=== PATIENT | male | born 1950 ===

== ENCOUNTER 2016-10-27 10:00 | Inpatient (IN) | payer OTHER, MEDICARE ==
[2016-10-27 10:01] VITALS: BMI 36.9
--- NOTE | 2016-10-27 11:22 | ED PDOC ---
Lower Extremity Pain/Injury Time Seen by Provider: 10/27/16 10:45 Chief Complaint (Nursing): Lower Extremity Problem/Injury Chief Complaint (Provider): Lower Extremity problem/Injury History Per: Patient History/Exam Limitations: no limitations Onset/Duration Of Symptoms: Hrs (prior to arrival ) Current Symptoms Are (Timing): Still Present Additional Complaint(s): Breezy Katz is a 66 year old male with a past medical history of diabetes and hypertension presenting to the ED for an evaluation of charcot foot to his left foot. The patient had two screw placements within his left foot and with one removed recently by Dr. Liu. This morning the patient noticed drainage occurring from his left foot as he was walking out of the bathroom which prompted his ED visit today. Of note, the patient experienced a stroke last December, for which he underwent therapy. Recently he has been practicing self-therapy at home. PMD: Rosario Past Medical History Reviewed: Historical Data, Nursing Documentation, Vital Signs Vital Signs: Last Vital Signs Temp 97.4 F L 10/27/16 10:15 Pulse 77 10/27/16 10:15 Resp 20 10/27/16 10:15 BP 124/60 10/27/16 10:15 Pulse Ox 98 10/27/16 10:29 - Medical History PMH: Anxiety, CVA (2010), Depression, Diabetes (type II), Gastritis, GERD, HTN, Hypercholesterolemia, TIA Denies: Arthritis, CHF, COPD, HIV, Hypothyroidism, Chronic Kidney Disease, Rheumatoid Arthritis - Surgical History Surgical History: Appendectomy (05/30/10), Coronary Stent (PERIPHERAL ANGIOGRAM STENT IMPLANTED 08/12/2012) - Family History Family History: States: Unknown Family Hx - Social History Current smoker - smoking cessation education provided: No Ex-Smoker (has not smoked in the last 12 months): Yes Alcohol: None Drugs: Denies - Home Medications Home Medications: Ambulatory Orders Medication Instructions Recorded Aspirin [Ecotrin] 81 mg PO DAILY 10/27/16 Atorvastatin [Lipitor] 80 mg PO HS 10/27/16 Brimonidine Tartrate/Timolol 1 drop EACHEYE BID 10/27/16 [Combigan 0.2%-0.5% Eye Drops] Clopidogrel [Plavix] 75 mg PO DAILY 10/27/16 Cu/Se/Vit A/Vit C/Vit E/Zinc 1 tab PO DAILY 10/27/16 [Ocuvite] Gabapentin [Neurontin] 300 mg PO TID PRN 10/27/16 Insulin Detemir [Levemir] 80 unit SC HS 10/27/16 Insulin Lispro [humALOG] 4 - 10 unit SC TID 10/27/16 Losartan [Cozaar] 50 mg PO DAILY 10/27/16 Meloxicam [Mobic] 15 mg PO DAILY PRN 10/27/16 MetFORMIN [glucoPHAGE] 1,000 mg PO BID 10/27/16 Multivitamin [Multi-Vitamin Daily] 1 tab PO DAILY 10/27/16 Onyx-3 Fatty Acids/Fish Oil [Fish 1 cap PO DAILY 10/27/16 Oil 1,000 mg Capsule] Omeprazole [Omeprazole] 40 mg PO DAILY 10/27/16 Travoprost [Travatan Z] 1 drop EACHEYE HS 10/27/16 hydroCHLOROthiazide [Microzide] 12.5 mg PO DAILY 10/27/16 - Allergies Allergies/Adverse Reactions: Allergies Allergy/AdvReac Type Severity Reaction Status Date / Time oxycodone HCl [From Percocet] Allergy Intermediate ITCHING Verified 01/21/16 20: 08 cat scan oral contrast Allergy Intermediate RASH Uncoded 01/21/16 20:08 Review of Systems ROS Statement: Except As Marked, All Systems Reviewed And Found Negative Musculoskeletal: Positive for: Foot Pain (left foot pain and drainage ) Physical Exam - Reviewed Nursing Documentation Reviewed: Yes Vital Signs Reviewed: Yes - Physical Exam Appears: Positive for: Non-toxic, No Acute Distress Head Exam: Positive for: ATRAUMATIC, NORMOCEPHALIC Cardiovascular/Chest: Positive for: Regular Rate, Rhythm. Negative for: Murmur Respiratory: Positive for: Normal Breath Sounds. Negative for: Respiratory Distress Gastrointestinal/Abdominal: Positive for: Normal Exam, Soft. Negative for: Tenderness Extremity: Positive for: Pedal Edema (pitting edema to left lower extremity), Swelling (chronic swelling to left lower extremity ), Other (interspace between foot and toe is injured but is able to walk ) Neurologic/Psych: Positive for: Alert, Oriented (x3) - Laboratory Results Result Diagrams: 10/27/16 12:00 10/27/16 12:00 - ECG O2 Sat by Pulse Oximetry: 98 (RA) Pulse Ox Interpretation: Normal Medical Decision Making Medical Decision Making: Time: 10:45 Impression: Lower Extremity Problem/Injury Plan: * VBG * BMP * CBC (With differential) * Erythrocyte Sedimentation Rate * Blood Culture * Would Culture * [RAD] Ankle AP LAT 2 Views LT * [RAD] Foot AP LAT LT * Reevaluation Scribe Attestation: Documented by Chanell Bustillo, acting as a scribe for Olga Vaughan MD. Provider Scribe Attestation: All medical record entries made by the Scribe were at my direction and personally dictated by me. I have reviewed the chart and agree that the record accurately reflects my personal performance of the history, physical exam, medical decision making, and the department course for this patient. I have also personally directed, reviewed, and agree with the discharge instructions and disposition. case d/w Podiatry. Will admit for IV antibiotics Disposition - Clinical Impression Clinical Impression: Cellulitis, Diabetic foot ulcer - Patient ED Disposition Is Patient to be Admitted: Yes - Disposition Disposition: Transfer of Care Disposition Time: 13:10 Condition: GUARDED Forms: [employer] (Amharic) - Pt Status Changed To: Hospital Disposition Of: Inpatient - Admit Certification Admit to Inpatient:: After my assessment, the patient will require hospitalization for at least two midnights. This is because of the severity of symptoms shown, intensity of services needed, and/or the medical risk in this patient being treated as an outpatient.
[2016-10-27 12:06] LABS: VENOUS BLOOD GAS BASE EXCESS 3.6 mmol/L (0.0-2.0); VENOUS BLOOD GAS PCO2 52 mmHg (40-60); VENOUS BLOOD PH 7.37 (7.32-7.43)
[2016-10-27 12:18] LABS: BASO # 0.1 K/uL (0.0-0.2); BASO % 0.7 % (0.0-2.0); EOS # 0.2 K/uL (0.0-0.7); EOS % 1.8 % (0.0-4.0); HEMATOCRIT 39.3 % (35.0-51.0); LYMPH # 1.7 K/uL (1.0-4.3); LYMPH % 12.6 % (20.0-40.0); MEAN CELL VOLUME 85.7 fl (80.0-94.0); MEAN CORPUSCULAR HEMOGLOBIN 28.2 pg (27.0-31.0); MEAN CORPUSCULAR HGB CONC 32.9 g/dL (33.0-37.0); MEAN PLATELET VOLUME 9.1 fl (7.2-11.7); MONO # 0.8 K/uL (0.0-0.8); MONO % 5.8 % (0.0-10.0); NEUT # 10.5 K/uL (1.8-7.0); NEUT % 79.1 % (50.0-75.0); RED CELL DISTRIBUTION WIDTH 14.3 % (11.5-14.5)
[2016-10-27 12:23] LABS: BLOOD UREA NITROGEN 18 mg/dl (9-20); CALCIUM 9.1 mg/dL (8.4-10.2); CARBON DIOXIDE 27 mmol/L (22-30); CHLORIDE 98 mmol/L (98-107); GFR AFRICAN-AMERICAN > 60; GLUCOSE,RANDOM 194 mg/dL (75-110); POTASSIUM 4.1 MMOL/L (3.6-5.0); SODIUM 137 mmol/l (132-148)
[2016-10-27 12:42] LABS: WHITE BLOOD COUNT 13.3 K/uL (4.8-10.8)
--- NOTE | 2016-10-27 12:42 | CP.PCM.CON ---
History of Present Illness - History of Present Illness History of Present Illness: 66 y/o male with PMH of DM and HTN seen in ED by podiatry for left foot 4th interspace ulcer and Charcot foot deformity. Pt is a known patient of Dr. Vega and has previously undergone several surgeries with him on both feet. Pt says his sugars normally run in the 200s but fluctuate depending on his diet. Pt states he noticed blood coming from the foot two days ago and this morning his noticed a wound there. Pt denies any F/C/N/V/SOB. Pt denies noticing any yellow drainage from the wound. Pt admits to a history of growing MRSA. Review of Systems - Review of Systems All systems: reviewed and no additional remarkable complaints except (per HPI) Past Patient History - Infectious Disease Hx of Infectious Diseases: MRSA - Past Medical History & Family History Past Medical History?: Yes - Past Social History Alcohol: None Drugs: Denies - CARDIAC Hx Congestive Heart Failure: No Hx Hypercholesterolemia: Yes Hx Hypertension: Yes - PULMONARY Hx Chronic Obstructive Pulmonary Disease (COPD): No - NEUROLOGICAL Hx Transient Ischemic Attacks (TIA): Yes - HEENT Hx HEENT Problems: No Hx Cataracts: Yes Hx Glaucoma: Yes - RENAL Hx Chronic Kidney Disease: No - ENDOCRINE/METABOLIC Hx Hypothyroidism: No - HEMATOLOGICAL/ONCOLOGICAL Hx Human Immunodeficiency Virus (HIV): No - INTEGUMENTARY Hx Dermatological Problems: No - MUSCULOSKELETAL/RHEUMATOLOGICAL Hx Arthritis: No Hx Rheumatoid Arthritis: No - GASTROINTESTINAL Hx Gastritis: Yes - GENITOURINARY/GYNECOLOGICAL Hx Genitourinary Disorders: No - PSYCHIATRIC Hx Anxiety: Yes Hx Depression: Yes - SURGICAL HISTORY Hx Appendectomy: Yes (05/30/10) Hx Coronary Stent: Yes (PERIPHERAL ANGIOGRAM STENT IMPLANTED 08/12/2012) - ANESTHESIA Hx Anesthesia: Yes Hx Anesthesia Reactions: No Hx Malignant Hyperthermia: No Meds Allergies/Adverse Reactions: Allergies Allergy/AdvReac Type Severity Reaction Status Date / Time oxycodone HCl [From Percocet] Allergy Intermediate ITCHING Verified 01/21/16 20: 08 cat scan oral contrast Allergy Intermediate RASH Uncoded 01/21/16 20:08 Physical Exam - Constitutional Appears: Well, Non-toxic, No Acute Distress - Extremities Exam Additional comments: Vasc: DP/PT 2/4 B/L. Temperature gradient warm to cool on R, warm to warm on L. CFT < 3 sec to all digits. +2 pitting edema noted to left leg extending distally to dorsum of L foot Derm: 0.5cm x 0.5cm x 0.2cm circular ulceration noted to medial aspect of L 5th digit in 4th interspace. Mild malodor noted. No active drainage. Sanguinous drainage noted on dressing. No tunneling or undermining. Wound borders are macerated with hyperkeratotic tissue noted to lateral aspect of venkatesh wound. Erythema surrounding 5th digit. Neuro: Protective sensation grossly intact Ortho: No tenderness to palpation of L foot 5th digit - Neurological Exam Neurological exam: Alert, Oriented x3 - Psychiatric Exam Psychiatric exam: Normal Affect, Normal Mood Results - Vital Signs Recent Vital Signs: Last Vital Signs Temp 97.4 F L 10/27/16 10:15 Pulse 77 10/27/16 10:15 Resp 20 10/27/16 10:15 BP 124/60 10/27/16 10:15 Pulse Ox 98 10/27/16 11:27 - Labs Result Diagrams: 10/27/16 12:00 10/27/16 12:00 Labs: Laboratory Results - last 24 hr 10/27/16 10/27/16 12:00 12:00 pO2 23 L VBG pH 7.37 VBG pCO2 52 VBG HCO3 26.1 VBG Total CO2 31.7 H VBG O2 Sat (Calc) 41.8 VBG Base Excess 3.6 H VBG Potassium 3.7 Sodium 137 133.0 Chloride 98 101.0 Glucose 206 H Lactate 2.1 FiO2 21.0 Potassium 4.1 Carbon Dioxide 27 Anion Gap 16 BUN 18 Creatinine 0.9 Est GFR ( Amer) > 60 Est GFR (Non-Af Amer) > 60 Random Glucose 194 H Calcium 9.1 Venous Blood Potassium 3.7 Assessment & Plan - Assessment and Plan (Free Text) Assessment: 66 y/o male with left foot ulcer and Charcot deformity secondary to diabetes Plan: Pt seen and evaluated in ED Discussed plan with attending Dr. Santamaria Chart, labs and vitals reviewed- afebrile, WBC 13.3 X-rays L foot- diffuse erosive destructive bony changes indicative of Charcot foot, previously diagnosed Wound cx taken from L foot 4th interspace ulcer Dressed L foot wound with Acticoat and DSD Pt started on IV Zosyn Pt to be admitted under family medicine for IV abx Podiatry to follow patient while in house and change dressing every other day
[2016-10-27] MEDS ORDERED: Piperacillin/Tazobact 3.375 gm Inj IVPB ONE (14:17)
[2016-10-27] MEDS ORDERED: Piperacillin/Tazobact 3.375 GM in Sodium Chloride 0.9% 100 ML IVPB STA (14:22)
[2016-10-27] MEDS ORDERED: Pneumococcal 23-Valent Vaccine IM ONE (16:17)
[2016-10-27] MEDS ORDERED: Influenza Vaccine 18yr & older 0.5 ML/45 MCG SYR IM ONE (16:17)
--- NOTE | 2016-10-27 16:48 | CP.PCM.HP ---
History of Present Illness - History of Present Illness History of Present Illness: 66 y/o M with a PMHx of HTN and DM2 is admitted for evaluation and management left foot ulcer suppuration. Pt reports his noticed traces of blood on the floor when pt walked barefoot this morning at home. Pt explains seeing a little painless wound between L 4th and 5th toe with scant yellow fluid coming out. Pt does NOT recall recent trauma or when wound was initially present. Pt denies fever, headache, CP, SOB, abdominal pain or rash. Allergies: Oral contrast and Percocet. PMHx: DM, HTN, HLD, PVD, CVA and MRSA right foot infection. PSHx: Left foot Sx 08/2014; Left foot screw removal 04/02/15. SHx: No tobacco (quit 35 years ago), no EtOH or recreational drugs. Medications: -ASA 81 mg daily -Gabapentin 300 mg TID -Metformin 1000mg BID -Humalog 100unit/mL, 20 units SC TID before meals -Levemir 100unit/mL, 100units at bedtime -Plavix 75mg PO daily -Losartan 50mg PO daily -HCTZ 12.5mg PO daily -Omeprazole 40mg PO daily -Atorvastatin 80mg PO daily ED Course: - CBC: WBC 13.3-high - BMP - unremarkable except for high glucose. - ESR 60-high. - VBG-unremarkable - XR of L foot and ankle-pending. - Blood culture and wound culture - pending. Present on Admission - Present on Admission Any Indicators Present on Admission: Yes History of Uncontrolled Diabetes: Yes Review of Systems - Review of Systems Review of Systems: As per HPI. Past Patient History - Infectious Disease Hx of Infectious Diseases: MRSA - Past Medical History & Family History Past Medical History?: Yes - Past Social History Smoking Status: Former Smoker - CARDIAC Hx Cardiac Disorders: Yes Hx Hypercholesterolemia: Yes Hx Hypertension: Yes - PULMONARY Hx Respiratory Disorders: No Hx Chronic Obstructive Pulmonary Disease (COPD): No - NEUROLOGICAL Hx Neurological Disorder: Yes HX Cerebrovascular Accident: Yes Hx Transient Ischemic Attacks (TIA): Yes - HEENT Hx HEENT Problems: Yes Hx Cataracts: Yes Hx Glaucoma: Yes - RENAL Hx Chronic Kidney Disease: No - ENDOCRINE/METABOLIC Hx Endocrine Disorders: Yes Hx Diabetes Mellitus Type 2: Yes - HEMATOLOGICAL/ONCOLOGICAL Hx Blood Disorders: No Hx Human Immunodeficiency Virus (HIV): No - INTEGUMENTARY Hx Dermatological Problems: No - MUSCULOSKELETAL/RHEUMATOLOGICAL Hx Musculoskeletal Disorders: Yes Hx Falls: Yes Hx Rheumatoid Arthritis: No - GASTROINTESTINAL Hx Gastrointestinal Disorders: Yes Hx Gastritis: Yes Hx Gastroesophageal Reflux: Yes - GENITOURINARY/GYNECOLOGICAL Hx Genitourinary Disorders: No - PSYCHIATRIC Hx Psychophysiologic Disorder: Yes Hx Anxiety: Yes Hx Depression: Yes Hx Substance Use: No - SURGICAL HISTORY Hx Surgeries: Yes Hx Appendectomy: Yes (05/30/10) Hx Coronary Stent: Yes (PERIPHERAL ANGIOGRAM STENT IMPLANTED 08/12/2012) - ANESTHESIA Hx Anesthesia: Yes Hx Anesthesia Reactions: No Hx Malignant Hyperthermia: No Meds Allergies/Adverse Reactions: Allergies Allergy/AdvReac Type Severity Reaction Status Date / Time oxycodone HCl [From Percocet] Allergy Intermediate ITCHING Verified 01/21/16 20: 08 cat scan oral contrast Allergy Intermediate RASH Uncoded 01/21/16 20:08 Physical Exam - Constitutional Appears: Well, Toxic, No Acute Distress - Head Exam Head Exam: ATRAUMATIC, NORMAL INSPECTION, NORMOCEPHALIC - Eye Exam Eye Exam: EOMI, Normal appearance - ENT Exam ENT Exam: Mucous Membranes Moist, Normal Exam - Neck Exam Neck exam: Positive for: Full Rom - Respiratory Exam Respiratory Exam: Clear to Auscultation Bilateral, NORMAL BREATHING PATTERN - Cardiovascular Exam Cardiovascular Exam: REGULAR RHYTHM, +S1, +S2 - GI/Abdominal Exam GI & Abdominal Exam: Normal Bowel Sounds, Soft. absent: Distended, Guarding, Tenderness - Skin Additional comments: Left foot: covered by clean, dry and intact dressing that orthopedist recently placed. Warm around dressing. Results - Vital Signs Recent Vital Signs: Last Vital Signs Temp 97.5 F L 10/27/16 16:20 Pulse 83 10/27/16 16:20 Resp 19 10/27/16 16:20 BP 153/82 H 10/27/16 16:20 Pulse Ox 99 10/27/16 16:20 - Labs Result Diagrams: 10/27/16 12:00 10/27/16 12:00 Labs: Laboratory Results - last 24 hr 10/27/16 15:50 POC Glucose (mg/dL) 224 H Assessment & Plan - Assessment and Plan (Free Text) Assessment: 66 y/o M with a PMHx of DM, HTN, HLD, PVD, CVA and MRSA right foot infection admitted for evaluation and management of Left foot ulcer. Plan: 1. Left foot ulcer - Podiatry on board. - IV Zosyn IVPB Q12H initiated by ED and podiatry. - Vancomycin 1200mg IVPB Q12 initiated by ID. - Wound culture pending - Blood culture pending - XR of left ankle nad foot-results pending. - Infectious Disease consulted by podiatry - F/u blood and wound culture and CR L ankle and foot. 2. Diabetes Mellitus complicated w/ Neuropathy - Uncontrolled. HbA1c 11.8-elevated on 01/12/16. - Gabapentin 300 mg TID - Metformin 1000mg BID - Humalog 100unit/mL, 20 units SC TID before meals - Levemir 100unit/mL, 100units at bedtime - Atorvastatin 80mg PO HS - f/u glucose serum checks. 3. HTN - Losartan 50mg PO daily - HCTZ 12.5mg PO daily - f/u BP. 4. Hx of CVA - Resume home medications. - ASA 81 mg daily - Plavix 75mg PO daily - Travaprost ophthalmic solution. - Combigan 0.2-0.5% 5. DVT Prophylaxis -SCD for now. 6. Preventive Medicine - Pneumovax 23 vaccine administered. - Influenza vaccine - Date & Time Date: 10/27/16 Time: 17:30
[2016-10-27] MEDS: Insulin Lispro (humaLOG) 100 Units/ml Inj SC SCH (17:38)
--- NOTE | 2016-10-27 17:46 | CP.PCM.CON ---
History of Present Illness - History of Present Illness History of Present Illness: Infectious Disease Consult Note- Asked to see this patient at the request of family practice team for diabetic foot ulcer. HPI- Patient is a 66 year old male with pmh Of DM II, HTN who came to the hospital for left foot 4th interspace Ulcer . As per patient and his who is at bedside she states that she noticed small amount of blood at the house and she traced it back to the source which was the left foot fourth toe interspace where she noticed opening with bloody discharge and sicne pt. 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 pt. denies any actual fevers but states had slight chills, denies any nausea or vomiting. Pt is a known patient of Dr. Vega and has previously undergone several surgeries with him on both feet. pt. states he has metal singh in the left foot for his charcot foot and metal screws in his left foot x 2 from previous surgeries. patient was seen with the presence of Family practice resident Dr.scott garcia and pt's also at his bedside. Pt. denies any allergy to any antibiotics. denies any PCN allergy. Review of Systems - Review of Systems Review of Systems: ROS- denies any fever but states had some chills yesterday, denies any FISH, denies any cough, denies any sob, denies any chest pain, denies any abd. pain, denies any n/v, denies any diarrhea, denies any dysurea, has neuropathy and didn't notice the left fourth toe ulceration until noticed by his , denies any pain there. denies any injury to the area Past Patient History - Infectious Disease Hx of Infectious Diseases: MRSA - Past Medical History & Family History Past Medical History?: Yes - Past Social History Smoking Status: Former Smoker Home Situation {Lives}: With Family - CARDIAC Hx Cardiac Disorders: Yes Hx Hypercholesterolemia: Yes Hx Hypertension: Yes - PULMONARY Hx Respiratory Disorders: No - NEUROLOGICAL Hx Neurological Disorder: Yes HX Cerebrovascular Accident: Yes Hx Transient Ischemic Attacks (TIA): Yes - HEENT Hx HEENT Problems: Yes Hx Cataracts: Yes Hx Glaucoma: Yes - RENAL Hx Chronic Kidney Disease: No - ENDOCRINE/METABOLIC Hx Endocrine Disorders: Yes Hx Diabetes Mellitus Type 2: Yes - HEMATOLOGICAL/ONCOLOGICAL Hx Blood Disorders: No - INTEGUMENTARY Hx Dermatological Problems: No - MUSCULOSKELETAL/RHEUMATOLOGICAL Hx Musculoskeletal Disorders: Yes Hx Falls: Yes Hx Rheumatoid Arthritis: No - GASTROINTESTINAL Hx Gastrointestinal Disorders: Yes Hx Gastritis: Yes Hx Gastroesophageal Reflux: Yes - GENITOURINARY/GYNECOLOGICAL Hx Genitourinary Disorders: No - PSYCHIATRIC Hx Psychophysiologic Disorder: Yes Hx Anxiety: Yes Hx Depression: Yes Hx Substance Use: No - SURGICAL HISTORY Hx Surgeries: Yes Hx Appendectomy: Yes (05/30/10) Hx Coronary Stent: Yes (PERIPHERAL ANGIOGRAM STENT IMPLANTED 08/12/2012) - ANESTHESIA Hx Anesthesia: Yes Hx Anesthesia Reactions: No Hx Malignant Hyperthermia: No Meds Allergies/Adverse Reactions: Allergies Allergy/AdvReac Type Severity Reaction Status Date / Time oxycodone HCl [From Percocet] Allergy Intermediate ITCHING Verified 01/21/16 20: 08 cat scan oral contrast Allergy Intermediate RASH Uncoded 01/21/16 20:08 - Medications Medications: Current Medications Aspirin (Ecotrin) 81 mg PO DAILY [facility] Atorvastatin Calcium (Lipitor) 80 mg PO HS [facility] Celecoxib (Celebrex) 200 mg PO DAILY PRN PRN Reason: Pain, moderate (4-7) Clopidogrel Bisulfate (Plavix) 75 mg PO DAILY [facility] Gabapentin (Neurontin) 300 mg PO TID PRN PRN Reason: Neuropathic pain Home Med (Brimonidine Tartrate/Timolol [Combigan 0.2%-0.5% Eye Drops]) 1 drop EACHEYE BID [facility] Home Med (Cu/Se/Vit A/Vit C/Vit E/Zinc [Ocuvite]) 1 tab PO DAILY [facility] Home Med (Travoprost [Travatan Z]) 1 drop EACHEYE HS [facility] Hydrochlorothiazide (Microzide) 12.5 mg PO DAILY [facility] Piperacillin Sod/Tazobactam (Sod 3.375 gm/ Sodium Chloride) 100 mls @ 100 mls/ hr IVPB Q12 [facility] Insulin Detemir (Levemir) 80 units SC HS [facility] Insulin Human Lispro (Humalog) 5 units SC TID [facility] Losartan Potassium (Cozaar) 50 mg PO DAILY [facility] Metformin HCl (Glucophage) 1,000 mg PO BID [facility] Multivitamins/Minerals (Therapeutic-M Tab) 1 tab PO DAILY [facility] [id number] Ethyl Esters (Lovaza) 1 gm PO DAILY [facility] Pantoprazole Sodium (Protonix Ec Tab) 40 mg PO DAILY [facility] Physical Exam - Constitutional Appears: Non-toxic, No Acute Distress - Head Exam Head Exam: ATRAUMATIC - Eye Exam Eye Exam: EOMI - ENT Exam ENT Exam: Normal Oropharynx - Neck Exam Neck exam: Positive for: Full Rom - Respiratory Exam Respiratory Exam: Clear to Auscultation Bilateral, NORMAL BREATHING PATTERN - Cardiovascular Exam Cardiovascular Exam: RRR, +S1, +S2 - GI/Abdominal Exam GI & Abdominal Exam: Normal Bowel Sounds, Soft Additional comments: NT, Nd - Extremities Exam Additional comments: left fourth toe interspace with small open ulcer with minimal sanguinous drainage, no malodor, edema in the surrounding region with erythema and warmth to touch no tenderness pt with charcot foot deformity and old surgical scar at the medical left foot section left foot no open ulcers, 2 dorsal old surgical scars no edema , no erythema - Neurological Exam Neurological exam: Alert, Oriented x3 Results - Vital Signs Recent Vital Signs: Last Vital Signs Temp 97.5 F L 10/27/16 16:20 Pulse 83 10/27/16 16:20 Resp 19 10/27/16 16:20 BP 153/82 H 10/27/16 16:20 Pulse Ox 99 10/27/16 16:20 - Labs Result Diagrams: 10/27/16 12:00 10/27/16 12:00 Labs: Laboratory Results - last 24 hr 10/27/16 15:50 POC Glucose (mg/dL) 224 H Laboratory Results - last 72 hr 10/27/16 10/27/16 10/27/16 12:00 12:00 12:00 WBC 13.3 H D RBC 4.58 Hgb 12.9 Hct 39.3 MCV 85.7 MCH 28.2 MCHC 32.9 L RDW 14.3 Plt Count 231 MPV 9.1 Neut % (Auto) 79.1 H Lymph % (Auto) 12.6 L Holmes % (Auto) 5.8 Eos % (Auto) 1.8 Baso % (Auto) 0.7 Neut # 10.5 H Lymph # 1.7 Holmes # 0.8 Eos # 0.2 Baso # 0.1 ESR 60 H pO2 23 L VBG pH 7.37 VBG pCO2 52 VBG HCO3 26.1 VBG Total CO2 31.7 H VBG O2 Sat (Calc) 41.8 VBG Base Excess 3.6 H VBG Potassium 3.7 Sodium 137 133.0 Chloride 98 101.0 Glucose 206 H Lactate 2.1 FiO2 21.0 Potassium 4.1 Carbon Dioxide 27 Anion Gap 16 BUN 18 Creatinine 0.9 Est GFR ( Amer) > 60 Est GFR (Non-Af Amer) > 60 POC Glucose (mg/dL) Random Glucose 194 H Calcium 9.1 Venous Blood Potassium 3.7 10/27/16 15:50 WBC RBC Hgb Hct MCV MCH MCHC RDW Plt Count MPV Neut % (Auto) Lymph % (Auto) Holmes % (Auto) Eos % (Auto) Baso % (Auto) Neut # Lymph # Holmes # Eos # Baso # ESR pO2 VBG pH VBG pCO2 VBG HCO3 VBG Total CO2 VBG O2 Sat (Calc) VBG Base Excess VBG Potassium Sodium Chloride Glucose Lactate FiO2 Potassium Carbon Dioxide Anion Gap BUN Creatinine Est GFR ( Amer) Est GFR (Non-Af Amer) POC Glucose (mg/dL) 224 H Random Glucose Calcium Venous Blood Potassium Microbiology 05/28/15 16:53 Foot - Right Gram Stain - Final 05/28/15 16:53 Foot - Right Wound Culture - Final No growth. 05/11/15 21:59 Blood Blood Culture - Final 05/11/15 21:59 Blood Gram Stain - Final NO GROWTH AFTER 5 DAYS TEST NOT PERFORMED 04/27/15 14:35 Foot - Right Wound Culture - Final 04/27/15 14:35 Foot - Right Gram Stain - Final Methicillin Resistant S Aureus 04/05/15 13:00 Urine Urine Culture - Final No growth. 04/05/15 11:42 Blood Blood Culture - Final 04/05/15 11:42 Blood Gram Stain - Final NO GROWTH AFTER 5 DAYS TEST NOT PERFORMED 04/05/15 11:42 Blood Blood Culture - Final 04/05/15 11:42 Blood Gram Stain - Final NO GROWTH AFTER 5 DAYS TEST NOT PERFORMED Assessment & Plan - Assessment and Plan (Free Text) Plan: A/P- 66 year old male with DM II, HTN, TIA admitted with left fourth toe interspace open ulcer draining sanguinous fluid. pt. is currently stable and not septic. afebrile minimal leukocytosis. wound cx from this admission pending. based on med records wound cx from the right foot in 2016 was MRSA. plan- in light of the history of previous deep infections and the fact that pt. has hardware in both feet and is diabetic advise to place on broad spectrum IV antibiotics to cover for both skin and skin structure pathogens specially MRSA and to cover for gram negatives such as pseudomonas. keep vanco trough <15. check 2 blood cx. await wound cx result. check ESR. await foot x-ray results. f/u wbc as well. All the above d/w both patient and his and all their questions were answered and they verbalize full understanding of all above and agree with above plan of care. Thank you for allowing me to take part in the care of this patient.
[2016-10-27] MEDS ORDERED: Piperacillin/Tazobact 3.375 GM in Sodium Chloride 0.9% 100 ML IVPB SCH ×2 (20:00→21:00)
[2016-10-27] MEDS: Insulin Detemir 100 Units/ml Inj SC SCH (21:43)
[2016-10-27] MEDS: Patient's Own Med (Brimonidine Tartrate/Timolol [Combigan 0.2%-0.5% Eye Drops] 1 DROP) EACHEYE SCH (21:47)
[2016-10-27] MEDS: Patient's Own Med (Travoprost [Travatan Z] 1 DROP) EACHEYE SCH (21:47)
[2016-10-28] MEDS: Piperacillin/Tazobact 3.375 GM in Sodium Chloride 0.9% 100 ML IVPB SCH ×3 (04:34→21:02)
[2016-10-28 06:20] LABS: BASO # 0.1 K/uL (0.0-0.2); BASO % 0.5 % (0.0-2.0); EOS # 0.2 K/uL (0.0-0.7); EOS % 1.8 % (0.0-4.0); HEMATOCRIT 34.5 % (35.0-51.0); LYMPH # 1.7 K/uL (1.0-4.3); LYMPH % 16.2 % (20.0-40.0); MEAN CELL VOLUME 84.4 fl (80.0-94.0); MEAN CORPUSCULAR HEMOGLOBIN 28.3 pg (27.0-31.0); MEAN CORPUSCULAR HGB CONC 33.5 g/dL (33.0-37.0); MONO # 0.8 K/uL (0.0-0.8); MONO % 7.4 % (0.0-10.0); NEUT # 7.9 K/uL (1.8-7.0); NEUT % 74.1 % (50.0-75.0); NRBC % 0.1 % (0.0-0.0); RED CELL DISTRIBUTION WIDTH 13.8 % (11.5-14.5); WHITE BLOOD COUNT 10.7 K/uL (4.8-10.8)
[2016-10-28] MEDS: Omega-3-Acid Ethyl Esters 1 GM Cap PO SCH (08:22)
[2016-10-28] MEDS: Pantoprazole 40 mg EC Tab PO SCH (08:22)
[2016-10-28] MEDS: Multivitamin With Minerals Tab PO SCH (08:22)
[2016-10-28] MEDS: Patient's Own Med (Brimonidine Tartrate/Timolol [Combigan 0.2%-0.5% Eye Drops] 1 DROP) EACHEYE SCH ×4 (08:23→21:21)
[2016-10-28] MEDS: Insulin Lispro (humaLOG) 100 Units/ml Inj SC SCH ×3 (08:24→17:11)
--- NOTE | 2016-10-28 08:39 | CARD ---
APPROVED REPORT EKG Measurement Heart [id number] <Conclusion> Normal sinus rhythm Normal ECG
[2016-10-28] MEDS ORDERED: Patient's Own Med (Cu/Se/Vit A/Vit C/Vit E/Zinc [Ocuvite] 1 TAB) PO SCH (09:00)
--- NOTE | 2016-10-28 09:32 | CP.PCM.PN ---
Subjective - Date & Time of Evaluation Date of Evaluation: 10/28/16 Time of Evaluation: 11:57 - Subjective Subjective: 66 y/o male with left foot 4th interspace ulcer and Charcot foot deformity seen at bedside this morning. Pt admits to no acute events overnight. Pt states he is feeling well today and thinks the redness in the toe has gone down a little. Pt denies having any pain in the left foot. Pt denies any F/C/N/V/SOB today. Objective - Vital Signs/Intake and Output Vital Signs (last 24 hours): Temp Pulse Resp BP Pulse Ox 98.2 F 81 18 114/75 97 10/28/16 07:29 10/28/16 08:22 10/28/16 07:29 10/28/16 08:22 10/28/16 07:29 - Medications Medications: Current Medications Aspirin (Ecotrin) 81 mg PO DAILY [facility] Last Admin: 10/28/16 08:23 Dose: 81 mg Atorvastatin Calcium (Lipitor) 80 mg PO [facility] Last Admin: 10/27/16 21:42 Dose: 80 mg Celecoxib (Celebrex) 200 mg PO DAILY PRN PRN Reason: Pain, moderate (4-7) Clopidogrel Bisulfate (Plavix) 75 mg PO DAILY [facility] Last Admin: 10/28/16 08:21 Dose: 75 mg Gabapentin (Neurontin) 300 mg PO TID PRN PRN Reason: Neuropathic pain Home Med (Brimonidine Tartrate/Timolol [Combigan 0.2%-0.5% Eye Drops]) 1 drop EACHEYE BID [facility] Last Admin: 10/28/16 08:23 Dose: 1 drop Home Med (Cu/Se/Vit A/Vit C/Vit E/Zinc [Ocuvite]) 1 tab PO DAILY [facility] Home Med (Travoprost [Travatan Z]) 1 drop EACHEYE HS [facility] Last Admin: 10/27/16 21:47 Dose: 1 drop Hydrochlorothiazide (Microzide) 12.5 mg PO DAILY [facility] Last Admin: 10/28/16 08:21 Dose: 12.5 mg Piperacillin Sod/Tazobactam (Sod 3.375 gm/ Sodium Chloride) 100 mls @ 100 mls/ hr IVPB Q8@0500,1300,2100 [facility] Last Admin: 10/28/16 04:34 Dose: 100 mls/hr Vancomycin HCl 1,200 mg/ (Sodium Chloride) 250 mls @ 125 mls/hr IVPB Q12@1000, 2200 [facility] Last Admin: 10/28/16 09:19 Dose: 125 mls/hr Insulin Detemir (Levemir) 80 units SC HS [facility] Last Admin: 10/27/16 21:43 Dose: 80 u Insulin Human Lispro (Humalog) 5 units SC TID [facility] Last Admin: 10/28/16 08:24 Dose: 5 units Losartan Potassium (Cozaar) 50 mg PO DAILY [facility] Last Admin: 10/28/16 08:22 Dose: 50 mg Metformin HCl (Glucophage) 1,000 mg PO BID [facility] Last Admin: 10/28/16 08:21 Dose: 1,000 mg Multivitamins/Minerals (Therapeutic-M Tab) 1 tab PO DAILY [facility] Last Admin: 10/28/16 08:22 Dose: 1 tab [id number] Ethyl Esters (Lovaza) 1 gm PO DAILY [facility] Last Admin: 10/28/16 08:22 Dose: 1 gm Pantoprazole Sodium (Protonix Ec Tab) 40 mg PO DAILY [facility] Last Admin: 10/28/16 08:22 Dose: 40 mg - Labs Labs: 10/28/16 04:00 - Constitutional Appears: Well, Non-toxic, No Acute Distress - Extremities Exam Additional comments: Left lower extremity focused examination: Dressing to L foot opened/changed with 5th digit exposed. Dressing left intact due to Acticoat wound dressing presence. Reinforced and covered 5th digit with dry sterile dressing. Erythema to 5th digit decreasing since admission. No active drainage noted on bandage. - Neurological Exam Neurological Exam: Alert, Awake, Oriented x3 - Psychiatric Exam Psychiatric exam: Normal Affect, Normal Mood Assessment and Plan - Assessment and Plan (Free Text) Assessment: 66 y/o male with left foot 4th interspace ulcer and Charcot deformity secondary to DM Plan: Pt seen and evaluated at bedside Discussed plan with attending Dr. Santamaria Chart, labs and vitals reviewed- afebrile, WBC 10.7 X-rays L foot- diffuse erosive destructive bony changes indicative of Charcot foot, previously diagnosed - official report pending Wound cx pending Reinforced dressing with DSD, Acticoat applied yesterday to remain in 4th interspace until tomorrow's dressing change Cont IV abx per ID - Mina Zosyn Podiatry to continue to follow patient while in house
--- NOTE | 2016-10-28 12:53 | RAD ---
PROCEDURE: HISTORY: swelling and drainage COMPARISON: 11/05/2015 TECHNIQUE: FINDINGS: Stable appearance/ configuration orthopedic hardware traversing the 1st metatarsal, cuneiform and associated tarsal bones. No evidence of hardware failure or loosening. 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 Extensive dorsal soft tissue swelling. Flatfoot deformity. IMPRESSION: As above.
--- NOTE | 2016-10-28 13:05 | RAD ---
PROCEDURE: HISTORY: swelling and drainage COMPARISON: TECHNIQUE: FINDINGS: No acute fracture. Flatfoot deformity. Fixation screw traversing the midfoot region. Extensive soft tissue swelling with a fragmentation noted along the anterior tibial plafond. IMPRESSION: No acute fracture.
--- NOTE | 2016-10-28 16:04 | CP.PCM.PN ---
Subjective - Date & Time of Evaluation Date of Evaluation: 10/28/16 Time of Evaluation: 16:02 - Subjective Subjective: no overnight events. Eating/drinking, making urine/BM. Denies chest pain, SOB. some left foot pain at ulcer site. some congestion Objective - Vital Signs/Intake and Output Vital Signs (last 24 hours): Temp Pulse Resp BP Pulse Ox 98.2 F 81 18 114/75 97 10/28/16 07:29 10/28/16 08:22 10/28/16 07:29 10/28/16 08:22 10/28/16 07:29 - Medications Medications: Current Medications Aspirin (Ecotrin) 81 mg PO DAILY [facility] Last Admin: 10/28/16 08:23 Dose: 81 mg Atorvastatin Calcium (Lipitor) 80 mg PO [facility] Last Admin: 10/27/16 21:42 Dose: 80 mg Bacitracin (Bacitracin Oint) 1 applic TOP BID [facility] Celecoxib (Celebrex) 200 mg PO DAILY PRN PRN Reason: Pain, moderate (4-7) Clopidogrel Bisulfate (Plavix) 75 mg PO DAILY [facility] Last Admin: 10/28/16 08:21 Dose: 75 mg Enoxaparin Sodium (Lovenox) 40 mg SC DAILY [facility] PRN Reason: Protocol Gabapentin (Neurontin) 300 mg PO TID PRN PRN Reason: Neuropathic pain Guaifenesin (Mucinex La) 600 mg PO Q12 [facility] Home Med (Brimonidine Tartrate/Timolol [Combigan 0.2%-0.5% Eye Drops]) 1 drop EACHEYE BID [facility] Last Admin: 10/28/16 08:23 Dose: 1 drop Home Med (Cu/Se/Vit A/Vit C/Vit E/Zinc [Ocuvite]) 1 tab PO DAILY [facility] Home Med (Travoprost [Travatan Z]) 1 drop EACHEYE [facility] Last Admin: 10/27/16 21:47 Dose: 1 drop Hydrochlorothiazide (Microzide) 12.5 mg PO DAILY [facility] Last Admin: 10/28/16 08:21 Dose: 12.5 mg Piperacillin Sod/Tazobactam (Sod 3.375 gm/ Sodium Chloride) 100 mls @ 100 mls/ hr IVPB Q8@0500,1300,2100 [facility] Last Admin: 10/28/16 13:02 Dose: 100 mls/hr Vancomycin HCl 1,200 mg/ (Sodium Chloride) 250 mls @ 125 mls/hr IVPB Q12@1000, 2200 [facility] Last Admin: 10/28/16 09:19 Dose: 125 mls/hr Insulin Detemir (Levemir) 80 units SC HS [facility] Last Admin: 10/27/16 21:43 Dose: 80 u Insulin Human Lispro (Humalog) 5 units SC TID [facility] Last Admin: 10/28/16 13:03 Dose: 5 units Losartan Potassium (Cozaar) 50 mg PO DAILY [facility] Last Admin: 10/28/16 08:22 Dose: 50 mg Metformin HCl (Glucophage) 1,000 mg PO BID [facility] Last Admin: 10/28/16 08:21 Dose: 1,000 mg Multivitamins/Minerals (Therapeutic-M Tab) 1 tab PO DAILY [facility] Last Admin: 10/28/16 08:22 Dose: 1 tab [id number]-[id number] Ethyl Esters (Lovaza) 1 gm PO DAILY [facility] Last Admin: 10/28/16 08:22 Dose: 1 gm Pantoprazole Sodium (Protonix Ec Tab) 40 mg PO DAILY [facility] Last Admin: 10/28/16 08:22 Dose: 40 mg - Labs Labs: 10/28/16 04:00 - Constitutional Appears: Well, No Acute Distress - Head Exam Head Exam: ATRAUMATIC, NORMAL INSPECTION - Eye Exam Eye Exam: Normal appearance - ENT Exam ENT Exam: Mucous Membranes Moist - Neck Exam Neck Exam: Full ROM, Normal Inspection - Respiratory Exam Additional comments: transmitted lung sounds - Cardiovascular Exam Cardiovascular Exam: REGULAR RHYTHM - GI/Abdominal Exam GI & Abdominal Exam: Soft. absent: Tenderness - Extremities Exam Extremities Exam: Normal Inspection. absent: Calf Tenderness - Back Exam Back Exam: NORMAL INSPECTION - Neurological Exam Neurological Exam: Alert, Oriented x3 Neuro motor strength exam: Left Upper Extremity: 5, Right Upper Extremity: 3, Left Lower Extremity: 5, Right Lower Extremity: 4 - Skin Skin Exam: Dry, Warm Assessment and Plan - Assessment and Plan (Free Text) Assessment: 66 y/o M with a PMHx of DM, HTN, HLD, PVD, CVA and MRSA right foot infection admitted for evaluation and management of Left foot ulcer. Plan: IV abx for now, ID and podiatry on board. check vanc trough before 4th dose 1. Left foot ulcer - Podiatry and ID on board. - IV Zosyn and Vancomycin -vanc trough before 4th dose - Wound culture GNR, GPC - Blood culture NGTD - XR of left ankle nad foot- no acute fx, possible avascular necrosis navicular 2. Diabetes Mellitus complicated w/ Neuropathy - Gabapentin 300 mg TID - Metformin 1000mg BID - Humalog 100unit/mL, 20 units SC TID before meals - Levemir 100unit/mL, 100units at bedtime - Atorvastatin 80mg PO HS -accuchecks -SSI 3. HTN - Losartan 50mg PO daily - HCTZ 12.5mg PO daily 4. Hx of CVA - ASA 81 mg daily - Plavix 75mg PO daily 5. Glaucoma - Travaprost ophthalmic solution. - Combigan 0.2-0.5% 6. DVT Prophylaxis -Lovenox
[2016-10-28] MEDS ORDERED: Dextrose 50% SYRINGE Inj (50 ml) IV PRN (16:10)
[2016-10-28] MEDS ORDERED: Glucagon Recombinant 1 mg Inj IM PRN (16:10)
[2016-10-28] MEDS: Enoxaparin 40 mg Syringe SC SCH (17:09)
[2016-10-28] MEDS: Insulin Regular 100 units/ml SC SCH ×2 (17:11→21:16)
[2016-10-28] MEDS: Bacitracin OINT 15GM TOP SCH (18:43)
[2016-10-28] MEDS: guaiFENesin 600 mg ER Tab PO SCH (21:03)
[2016-10-28] MEDS: Patient's Own Med (Travoprost [Travatan Z] 1 DROP) EACHEYE SCH (21:05)
[2016-10-28] MEDS: Insulin Detemir 100 Units/ml Inj SC SCH (21:13)
[2016-10-29] MEDS: Piperacillin/Tazobact 3.375 GM in Sodium Chloride 0.9% 100 ML IVPB SCH ×3 (04:37→20:11)
[2016-10-29 07:12] LABS: BASO % 0.5 % (0.0-2.0); EOS # 0.2 K/uL (0.0-0.7); EOS % 2.2 % (0.0-4.0); HEMATOCRIT 34.7 % (35.0-51.0); LYMPH # 1.7 K/uL (1.0-4.3); LYMPH % 16.4 % (20.0-40.0); MEAN CELL VOLUME 84.4 fl (80.0-94.0); MEAN CORPUSCULAR HEMOGLOBIN 28.1 pg (27.0-31.0); MEAN CORPUSCULAR HGB CONC 33.3 g/dL (33.0-37.0); MEAN PLATELET VOLUME 8.9 fl (7.2-11.7); MONO # 0.7 K/uL (0.0-0.8); NEUT # 7.7 K/uL (1.8-7.0); NEUT % 73.9 % (50.0-75.0); NRBC % 0.1 % (0.0-0.0); WHITE BLOOD COUNT 10.4 K/uL (4.8-10.8)
[2016-10-29 07:24] LABS: ALB/GLOB RATIO 1.2 (1.0-2.1); ALKALINE PHOSPHATASE 99 U/L (38-126); ALT/SGPT 35 U/L (21-72); AST/SGOT 21 U/L (17-59); BILIRUBIN,TOTAL 0.7 mg/dl (0.2-1.3); BLOOD UREA NITROGEN 12 mg/dl (9-20); CALCIUM 8.8 mg/dL (8.4-10.2); CARBON DIOXIDE 26 mmol/L (22-30); CHLORIDE 103 mmol/L (98-107); GFR AFRICAN-AMERICAN > 60; GLUCOSE,RANDOM 87 mg/dL (75-110); POTASSIUM 3.5 MMOL/L (3.6-5.0); SODIUM 137 mmol/l (132-148); TOTAL PROTEIN 6.6 G/DL (6.3-8.2)
[2016-10-29] MEDS ORDERED: Potassium Chloride 20 mEq ER Tab PO ONE ×2 (07:46→08:40)
--- NOTE | 2016-10-29 09:02 | CP.PCM.PN ---
Subjective - Date & Time of Evaluation Date of Evaluation: 10/29/16 Time of Evaluation: 09:03 - Subjective Subjective: Podiatry Progress note for Dr. Santamaria 66 y/o male with left foot 4th interspace ulcer and Charcot foot deformity seen at bedside this morning. Pt admits to no acute events overnight. Pt states he is feeling well today and is eager to see if his toe redness is improving. Pt denies having any pain in the left foot. Pt denies any F/C/N/V/SOB today. Objective - Vital Signs/Intake and Output Vital Signs (last 24 hours): Temp Pulse Resp BP Pulse Ox 98.4 F 74 18 123/72 96 10/29/16 07:32 10/29/16 07:32 10/29/16 07:32 10/29/16 07:32 10/29/16 07:32 - Medications Medications: Current Medications Aspirin (Ecotrin) 81 mg PO DAILY [facility] Last Admin: 10/28/16 08:23 Dose: 81 mg Atorvastatin Calcium (Lipitor) 80 mg PO HS [facility] Last Admin: 10/28/16 21:03 Dose: 80 mg Bacitracin (Bacitracin Oint) 1 applic TOP BID [facility] Last Admin: 10/28/16 18:43 Dose: 1 applic Celecoxib (Celebrex) 200 mg PO DAILY PRN PRN Reason: Pain, moderate (4-7) Clopidogrel Bisulfate (Plavix) 75 mg PO DAILY [facility] Last Admin: 10/28/16 08:21 Dose: 75 mg Dextrose (Dextrose 50% Inj) 0 ml IV STAT PRN; Protocol PRN Reason: Hyglycemia Protocol Dextrose (Glutose 15) 0 gm PO ONCE PRN; Protocol PRN Reason: Hypoglycemia Protocol Enoxaparin Sodium (Lovenox) 40 mg SC DAILY [facility] PRN Reason: Protocol Last Admin: 10/28/16 17:09 Dose: 40 mg Gabapentin (Neurontin) 300 mg PO TID PRN PRN Reason: Neuropathic pain Last Admin: 10/29/16 06:38 Dose: 300 mg Glucagon (Glucagen Diagnostic Kit) 0 mg IM STAT PRN; Protocol PRN Reason: Hypoglycemia Protocol Guaifenesin (Mucinex La) 600 mg PO Q12 [facility] Last Admin: 10/28/16 21:03 Dose: 600 mg Home Med (Cu/Se/Vit A/Vit C/Vit E/Zinc [Ocuvite]) 1 tab PO DAILY [facility] Home Med (Travoprost [Travatan Z]) 1 drop EACHEYE [facility] Last Admin: 10/28/16 21:05 Dose: 1 drop Home Med (Brimonidine Tartrate/Timolol [Combigan 0.2%-0.5% Eye Drops]) 1 drop EACHEYE BID@0900,2100 [facility] Last Admin: 10/28/16 21:21 Dose: 1 drop Hydrochlorothiazide (Microzide) 12.5 mg PO DAILY [facility] Last Admin: 10/28/16 08:21 Dose: 12.5 mg Piperacillin Sod/Tazobactam (Sod 3.375 gm/ Sodium Chloride) 100 mls @ 100 mls/ hr IVPB Q8@0500,1300,2100 [facility] Last Admin: 10/29/16 04:37 Dose: 100 mls/hr Vancomycin HCl 1,200 mg/ (Sodium Chloride) 250 mls @ 125 mls/hr IVPB Q12@1000, 2200 [facility] Last Admin: 10/28/16 22:01 Dose: 125 mls/hr Insulin Detemir (Levemir) 80 units SC [facility] Last Admin: 10/28/16 21:13 Dose: 80 u Insulin Human Lispro (Humalog) 5 units SC TID [facility] Last Admin: 10/28/16 17:11 Dose: 5 units Insulin Human Regular (Humulin R) 0 units SC [facility] PRN Reason: Protocol Last Admin: 10/28/16 21:16 Dose: Not Given Losartan Potassium (Cozaar) 50 mg PO DAILY [facility] Last Admin: 10/28/16 08:22 Dose: 50 mg Metformin HCl (Glucophage) 1,000 mg PO BID [facility] Last Admin: 10/28/16 17:10 Dose: 1,000 mg Multivitamins/Minerals (Therapeutic-M Tab) 1 tab PO DAILY [facility] Last Admin: 10/28/16 08:22 Dose: 1 tab Spmxi-[id number] Ethyl Esters (Lovaza) 1 gm PO DAILY [facility] Last Admin: 10/28/16 08:22 Dose: 1 gm Pantoprazole Sodium (Protonix Ec Tab) 40 mg PO DAILY [facility] Last Admin: 10/28/16 08:22 Dose: 40 mg - Labs Labs: 10/29/16 06:00 10/29/16 07:00 - Constitutional Appears: Well, Non-toxic, No Acute Distress - Extremities Exam Additional comments: Vasc: DP/PT 2/4 B/L. Temperature gradient warm to cool on R, warm to warm on L. CFT < 3 sec to all digits. +2 pitting edema noted to left leg extending distally to dorsum of L foot Derm: 0.8cm x 0.6cm x 0.2cm circular ulceration noted to medial aspect of L 5th digit in 4th interspace. Fibrotic tissue noted to wound base. Mild malodor noted. No active drainage. No tunneling or undermining. Wound borders are macerated. Erythema surrounding 5th digit, decreased since admission Neuro: Protective sensation grossly intact Ortho: No tenderness to palpation of L foot 5th digit - Neurological Exam Neurological Exam: Alert, Awake, Oriented x3 - Psychiatric Exam Psychiatric exam: Normal Affect, Normal Mood Assessment and Plan - Assessment and Plan (Free Text) Assessment: 66 y/o male with left foot 4th interspace ulcer and Charcot deformity secondary to DM Plan: Pt seen and evaluated at bedside Discussed plan with attending Dr. Santamaria Chart, labs and vitals reviewed- afebrile, WBC 10.4 X-rays L foot- diffuse erosive destructive bony changes indicative of Charcot foot, no evidence of OM Wound cx final- Citrobacter, Enterococcus Faecalis (sensitive to Vancomycin and Zosyn) Betadine and DSD applied to L foot ulcer Cont IV abx per ID - Keila Enriquez Podiatry to continue to follow patient while in house
[2016-10-29] MEDS: Insulin Regular 100 units/ml SC SCH ×4 (09:04→22:02)
[2016-10-29] MEDS: Insulin Lispro (humaLOG) 100 Units/ml Inj SC SCH ×3 (09:04→17:55)
[2016-10-29] MEDS: Bacitracin OINT 15GM TOP SCH ×2 (09:06→17:53)
[2016-10-29] MEDS: Multivitamin With Minerals Tab PO SCH (09:07)
[2016-10-29] MEDS: guaiFENesin 600 mg ER Tab PO SCH ×2 (09:07→22:00)
[2016-10-29] MEDS: Omega-3-Acid Ethyl Esters 1 GM Cap PO SCH (09:07)
[2016-10-29] MEDS: Enoxaparin 40 mg Syringe SC SCH (09:07)
[2016-10-29] MEDS: Pantoprazole 40 mg EC Tab PO SCH (09:08)
[2016-10-29] MEDS: Patient's Own Med (Brimonidine Tartrate/Timolol [Combigan 0.2%-0.5% Eye Drops] 1 DROP) EACHEYE SCH ×2 (09:09→22:03)
--- NOTE | 2016-10-29 14:00 | CP.PCM.PN ---
Subjective - Date & Time of Evaluation Date of Evaluation: 10/29/16 Time of Evaluation: 22:00 - Subjective Subjective: 66 yo male seen at bedside. Pt was sitting comfortably on the chair. Had uneventful night. Pt is tolerating PO food and liquid. Reports discomfort in left shoulder for which he applies menthol patch. Pt denies any left foot. Denies chest pain, dyspnea, cough, calf pain or fever. Objective - Vital Signs/Intake and Output Vital Signs (last 24 hours): Temp Pulse Resp BP Pulse Ox 98.4 F 74 18 123/72 96 10/29/16 07:32 10/29/16 09:08 10/29/16 07:32 10/29/16 09:08 10/29/16 07:32 - Medications Medications: Current Medications Acetaminophen (Tylenol 325mg Tab) 975 mg PO Q6 PRN PRN Reason: Other Aspirin (Ecotrin) 81 mg PO DAILY [facility] Last Admin: 10/29/16 09:08 Dose: 81 mg Atorvastatin Calcium (Lipitor) 80 mg PO HS [facility] Last Admin: 10/28/16 21:03 Dose: 80 mg Bacitracin (Bacitracin Oint) 1 applic TOP BID [facility] Last Admin: 10/29/16 09:06 Dose: 1 applic Celecoxib (Celebrex) 200 mg PO DAILY PRN PRN Reason: Pain, moderate (4-7) Clopidogrel Bisulfate (Plavix) 75 mg PO DAILY [facility] Last Admin: 10/29/16 09:08 Dose: 75 mg Dextrose (Dextrose 50% Inj) 0 ml IV STAT PRN; Protocol PRN Reason: Hyglycemia Protocol Dextrose (Glutose 15) 0 gm PO ONCE PRN; Protocol PRN Reason: Hypoglycemia Protocol Enoxaparin Sodium (Lovenox) 40 mg SC DAILY [facility] PRN Reason: Protocol Last Admin: 10/29/16 09:07 Dose: 40 mg Gabapentin (Neurontin) 300 mg PO TID PRN PRN Reason: Neuropathic pain Last Admin: 10/29/16 06:38 Dose: 300 mg Glucagon (Glucagen Diagnostic Kit) 0 mg IM STAT PRN; Protocol PRN Reason: Hypoglycemia Protocol Guaifenesin (Mucinex La) 600 mg PO Q12 [facility] Last Admin: 10/29/16 09:07 Dose: 600 mg Home Med (Cu/Se/Vit A/Vit C/Vit E/Zinc [Ocuvite]) 1 tab PO DAILY [facility] Home Med (Travoprost [Travatan Z]) 1 drop EACHEYE [facility] Last Admin: 10/28/16 21:05 Dose: 1 drop Home Med (Brimonidine Tartrate/Timolol [Combigan 0.2%-0.5% Eye Drops]) 1 drop EACHEYE BID@0900,2100 [facility] Last Admin: 10/29/16 09:09 Dose: 1 drop Home Med (Patient's Own Medication) 1 unit TOP [facility] Hydrochlorothiazide (Microzide) 12.5 mg PO DAILY [facility] Last Admin: 10/29/16 09:10 Dose: 12.5 mg Piperacillin Sod/Tazobactam (Sod 3.375 gm/ Sodium Chloride) 100 mls @ 100 mls/ hr IVPB Q8@0500,1300,2100 [facility] Last Admin: 10/29/16 12:42 Dose: 100 mls/hr Vancomycin HCl 1,200 mg/ (Sodium Chloride) 250 mls @ 125 mls/hr IVPB Q12@1000, 2200 [facility] Last Admin: 10/29/16 12:41 Dose: 125 mls/hr Insulin Detemir (Levemir) 80 units SC [facility] Last Admin: 10/28/16 21:13 Dose: 80 u Insulin Human Lispro (Humalog) 5 units SC TID [facility] Last Admin: 10/29/16 12:40 Dose: 5 units Insulin Human Regular (Humulin R) 0 units SC [facility] PRN Reason: Protocol Last Admin: 10/29/16 12:40 Dose: 2 units Ketoconazole (Nizoral) 1 applic TOP DAILY PRN PRN Reason: Other Losartan Potassium (Cozaar) 50 mg PO DAILY [facility] Last Admin: 10/29/16 09:08 Dose: 50 mg Multivitamins/Minerals (Therapeutic-M Tab) 1 tab PO DAILY [facility] Last Admin: 10/29/16 09:07 Dose: 1 tab Ghfzp-[id number] Ethyl Esters (Lovaza) 1 gm PO DAILY [facility] Last Admin: 10/29/16 09:07 Dose: 1 gm Pantoprazole Sodium (Protonix Ec Tab) 40 mg PO DAILY [facility] Last Admin: 10/29/16 09:08 Dose: 40 mg - Labs Labs: 10/29/16 06:00 10/29/16 07:00 - Constitutional Appears: Well, Non-toxic, No Acute Distress - Eye Exam Eye Exam: Normal appearance - ENT Exam ENT Exam: Mucous Membranes Moist - Neck Exam Neck Exam: Normal Inspection - Respiratory Exam Respiratory Exam: Clear to Ausculation Bilateral, NORMAL BREATHING PATTERN. absent: Rhonchi, Wheezes, Respiratory Distress - Cardiovascular Exam Cardiovascular Exam: REGULAR RHYTHM, +S1, +S2 - GI/Abdominal Exam GI & Abdominal Exam: Soft, Normal Bowel Sounds. absent: Tenderness - Extremities Exam Extremities Exam: Normal Capillary Refill, Normal Inspection. absent: Calf Tenderness Additional comments: Dressing in place in left foot. No yellow discharge seen over the dressing. No active bleeding seen. Normal popliteal pulse B/L. - Neurological Exam Neurological Exam: Alert, Oriented x3 Neuro motor strength exam: Left Lower Extremity: 3, Right Lower Extremity: 5 - Psychiatric Exam Psychiatric exam: Normal Affect, Normal Mood - Skin Skin Exam: Normal Color. absent: Warm Assessment and Plan - Assessment and Plan (Free Text) Assessment: 66 yo male with PMH of DMII, HTN, HLD, PVD, CVA and MRSA right foot infection admitted for evaluation and management of Left foot ulcer. 1. Left foot ulcer - Podiatry and ID on board. - Continue with IV Zosyn and Vancomycin - vancomycin trough is 12.8 today - Wound culture shows Citrobacter Diversus and Enterococcus Faecalis. - Blood culture: no growth - XR of left ankle nad foot- no acute fx, possible avascular necrosis navicular 2. Diabetes Mellitus complicated w/ Neuropathy - C/W Gabapentin 300 mg TID - start Acetaminophen 1000 mg q6 hrs prn for pain. - Hold Metformin 1000mg BID - Continue w/ Humalog 100unit/mL, 20 units SC TID before meals - Continue w/ Levemir 100unit/mL, 100units at bedtime - Continue w/ Atorvastatin 80mg PO HS -accuchecks -SSI 3. HTN - Losartan 50mg PO daily - HCTZ 12.5mg PO daily 4. Hx of CVA - ASA 81 mg daily - Plavix 75mg PO daily 5. Right shoulder pain. -Start menthol cream as pt was applying it at home w/ good relief. 5. Glaucoma - Travaprost ophthalmic solution. - Combigan 0.2-0.5% 6. DVT Prophylaxis -Lovenox Plan: Vanco trough level is 12.8 today. Continue with IV abx for now, ID and podiatry on board.
[2016-10-29] MEDS: Patient's Own Med (Travoprost [Travatan Z] 1 DROP) EACHEYE SCH (22:01)
[2016-10-29] MEDS: Insulin Detemir 100 Units/ml Inj SC SCH (22:02)
[2016-10-30] MEDS: Piperacillin/Tazobact 3.375 GM in Sodium Chloride 0.9% 100 ML IVPB SCH ×2 (05:04→11:59)
--- NOTE | 2016-10-30 05:57 | CP.PCM.PN ---
Subjective - Date & Time of Evaluation Date of Evaluation: 10/30/16 Time of Evaluation: 06:38 - Subjective Subjective: Podiatry Progress note for Dr. Santamaria 66 y/o male with left foot 4th interspace ulcer and Charcot foot deformity seen at bedside this morning. Patient appears in NAD and is AAOx3. Patient admits to no acute events overnight. Patient states he is feeling well today and is eager to see if his toe redness is improving. Patient denies having any pain in the left foot. Patient denies any F/C/N/V/SOB today. Patient denies of any other pedal complains at this time. Objective - Vital Signs/Intake and Output Vital Signs (last 24 hours): Temp Pulse Resp BP Pulse Ox 98.2 F 87 19 117/70 96 10/30/16 00:27 10/30/16 00:27 10/30/16 00:27 10/30/16 00:27 10/30/16 00:27 - Medications Medications: Current Medications Acetaminophen (Tylenol 325mg Tab) 975 mg PO Q6 PRN PRN Reason: Other Last Admin: 10/30/16 03:06 Dose: 975 mg Aspirin (Ecotrin) 81 mg PO DAILY [facility] Last Admin: 10/29/16 09:08 Dose: 81 mg Atorvastatin Calcium (Lipitor) 80 mg PO HS [facility] Last Admin: 10/29/16 22:01 Dose: 80 mg Bacitracin (Bacitracin Oint) 1 applic TOP BID [facility] Last Admin: 10/29/16 17:53 Dose: 1 applic Celecoxib (Celebrex) 200 mg PO DAILY PRN PRN Reason: Pain, moderate (4-7) Clopidogrel Bisulfate (Plavix) 75 mg PO DAILY [facility] Last Admin: 10/29/16 09:08 Dose: 75 mg Dextrose (Dextrose 50% Inj) 0 ml IV STAT PRN; Protocol PRN Reason: Hyglycemia Protocol Dextrose (Glutose 15) 0 gm PO ONCE PRN; Protocol PRN Reason: Hypoglycemia Protocol Enoxaparin Sodium (Lovenox) 40 mg SC DAILY [facility] PRN Reason: Protocol Last Admin: 10/29/16 09:07 Dose: 40 mg Gabapentin (Neurontin) 300 mg PO TID PRN PRN Reason: Neuropathic pain Last Admin: 10/29/16 22:12 Dose: 300 mg Glucagon (Glucagen Diagnostic Kit) 0 mg IM STAT PRN; Protocol PRN Reason: Hypoglycemia Protocol Guaifenesin (Mucinex La) 600 mg PO Q12 [facility] Last Admin: 10/29/16 22:00 Dose: 600 mg Home Med (Cu/Se/Vit A/Vit C/Vit E/Zinc [Ocuvite]) 1 tab PO DAILY [facility] Home Med (Travoprost [Travatan Z]) 1 drop [facility] Last Admin: 10/29/16 22:01 Dose: 1 drop Home Med (Brimonidine Tartrate/Timolol [Combigan 0.2%-0.5% Eye Drops]) 1 drop EACHEYE BID@0900,2100 [facility] Last Admin: 10/29/16 22:03 Dose: 1 drop Home Med (Patient's Own Medication) 1 unit TOP [facility] Hydrochlorothiazide (Microzide) 12.5 mg PO DAILY [facility] Last Admin: 10/29/16 09:10 Dose: 12.5 mg Piperacillin Sod/Tazobactam (Sod 3.375 gm/ Sodium Chloride) 100 mls @ 100 mls/ hr IVPB Q8@0500,1300,2100 [facility] Last Admin: 10/30/16 05:04 Dose: 100 mls/hr Vancomycin HCl 1,200 mg/ (Sodium Chloride) 250 mls @ 125 mls/hr IVPB Q12@1000, 2200 [facility] Last Admin: 10/29/16 22:03 Dose: 125 mls/hr Insulin Detemir (Levemir) 80 units SC [facility] Last Admin: 10/29/16 22:02 Dose: 80 u Insulin Human Lispro (Humalog) 5 units SC TID [facility] Last Admin: 10/29/16 17:55 Dose: 5 units Insulin Human Regular (Humulin R) 0 units SC ACHS [facility] PRN Reason: Protocol Last Admin: 10/29/16 22:02 Dose: Not Given Ketoconazole (Nizoral) 1 applic TOP DAILY PRN PRN Reason: Other Losartan Potassium (Cozaar) 50 mg PO DAILY [facility] Last Admin: 10/29/16 09:08 Dose: 50 mg Multivitamins/Minerals (Therapeutic-M Tab) 1 tab PO DAILY [facility] Last Admin: 10/29/16 09:07 Dose: 1 tab [id number]-[id number] Ethyl Esters (Lovaza) 1 gm PO DAILY [facility] Last Admin: 10/29/16 09:07 Dose: 1 gm Pantoprazole Sodium (Protonix Ec Tab) 40 mg PO DAILY [facility] Last Admin: 10/29/16 09:08 Dose: 40 mg - Labs Labs: 10/29/16 06:00 10/29/16 07:00 - Constitutional Appears: Well, Non-toxic, No Acute Distress - Extremities Exam Additional comments: Vasc: DP/PT 2/4 B/L. Temperature gradient warm to cool on R, warm to warm on L. CFT < 3 sec to all digits. +2 pitting edema noted to left leg extending distally to dorsum of L foot Derm: 0.8cm x 0.6cm x 0.2cm circular ulceration noted to medial aspect of L 5th digit in 4th interspace. Fibrotic tissue noted to wound base. Mild malodor noted. No active drainage. No tunneling or undermining. Wound borders are macerated. Erythema surrounding 5th digit Neuro: Protective sensation grossly intact Ortho: No tenderness to palpation of L foot 5th digit - Neurological Exam Neurological Exam: Alert, Awake, Oriented x3 - Psychiatric Exam Psychiatric exam: Normal Affect, Normal Mood Assessment and Plan - Assessment and Plan (Free Text) Assessment: 66 y/o male with left foot 4th interspace ulcer and Charcot deformity secondary to DM Plan: Pt seen and evaluated at bedside Discussed plan with attending Dr. Santamaria Chart, labs and vitals reviewed- afebrile, WBC 10.4 as of 11/28 X-rays L foot- diffuse erosive destructive bony changes indicative of Charcot foot, no evidence of OM Wound cx final- Citrobacter, Enterococcus Faecalis (sensitive to Vancomycin and Zosyn) Betadine and DSD applied to L foot ulcer Cont IV abx per ID - Vanco, Zosyn - Patient to complete total of 4 weeks of IV abx with a PICC line as per Dr. Roy Podiatry to continue to follow patient while in house
[2016-10-30 06:50] LABS: BASO # 0.1 K/uL (0.0-0.2); BASO % 0.5 % (0.0-2.0); EOS # 0.3 K/uL (0.0-0.7); HEMATOCRIT 34.1 % (35.0-51.0); LYMPH # 1.7 K/uL (1.0-4.3); LYMPH % 16.5 % (20.0-40.0); MEAN CELL VOLUME 84.8 fl (80.0-94.0); MEAN CORPUSCULAR HEMOGLOBIN 28.2 pg (27.0-31.0); MEAN CORPUSCULAR HGB CONC 33.3 g/dL (33.0-37.0); MEAN PLATELET VOLUME 8.4 fl (7.2-11.7); MONO # 0.7 K/uL (0.0-0.8); MONO % 7.1 % (0.0-10.0); NEUT # 7.3 K/uL (1.8-7.0); NEUT % 72.9 % (50.0-75.0); RED CELL DISTRIBUTION WIDTH 13.7 % (11.5-14.5)
[2016-10-30 07:01] LABS: BLOOD UREA NITROGEN 14 mg/dl (9-20); CALCIUM 8.6 mg/dL (8.4-10.2); CARBON DIOXIDE 26 mmol/L (22-30); CHLORIDE 104 mmol/L (98-107); GFR AFRICAN-AMERICAN > 60; GLUCOSE,RANDOM 155 mg/dL (75-110); POTASSIUM 3.7 MMOL/L (3.6-5.0); SODIUM 138 mmol/l (132-148)
[2016-10-30] MEDS: Bacitracin OINT 15GM TOP SCH ×2 (08:28→16:10)
[2016-10-30] MEDS: Enoxaparin 40 mg Syringe SC SCH (08:29)
[2016-10-30] MEDS: Omega-3-Acid Ethyl Esters 1 GM Cap PO SCH (08:29)
[2016-10-30] MEDS: guaiFENesin 600 mg ER Tab PO SCH ×2 (08:29→21:02)
[2016-10-30] MEDS: Patient's Own Med (Brimonidine Tartrate/Timolol [Combigan 0.2%-0.5% Eye Drops] 1 DROP) EACHEYE SCH ×2 (08:31→21:03)
[2016-10-30] MEDS: Insulin Lispro (humaLOG) 100 Units/ml Inj SC SCH ×3 (08:33→16:06)
[2016-10-30] MEDS: Insulin Regular 100 units/ml SC SCH ×4 (08:34→22:07)
[2016-10-30] MEDS: Multivitamin With Minerals Tab PO SCH (08:35)
[2016-10-30] MEDS: Pantoprazole 40 mg EC Tab PO SCH (08:35)
--- NOTE | 2016-10-30 09:58 | CP.PCM.PN ---
Subjective - Date & Time of Evaluation Date of Evaluation: 10/30/16 Time of Evaluation: 07:50 - Subjective Subjective: 66 yo male seen at bedside this morning. Had uneventful night. Pt is tolerating PO food and liquid. Pt denies any left foot pain. Denies chest pain, dyspnea, cough, calf pain or fever. Objective - Vital Signs/Intake and Output Vital Signs (last 24 hours): Temp Pulse Resp BP Pulse Ox 97.7 F 74 20 123/78 96 10/30/16 07:30 10/30/16 07:30 10/30/16 07:30 10/30/16 07:30 10/30/16 07:30 - Medications Medications: Current Medications Acetaminophen (Tylenol 325mg Tab) 975 mg PO Q6 PRN PRN Reason: Other Last Admin: 10/30/16 03:06 Dose: 975 mg Aspirin (Ecotrin) 81 mg PO DAILY [facility] Last Admin: 10/30/16 08:32 Dose: 81 mg Atorvastatin Calcium (Lipitor) 80 mg PO HS [facility] Last Admin: 10/29/16 22:01 Dose: 80 mg Bacitracin (Bacitracin Oint) 1 applic TOP BID [facility] Last Admin: 10/30/16 08:28 Dose: 1 applic Celecoxib (Celebrex) 200 mg PO DAILY PRN PRN Reason: Pain, moderate (4-7) Clopidogrel Bisulfate (Plavix) 75 mg PO DAILY [facility] Last Admin: 10/30/16 08:35 Dose: 75 mg Dextrose (Dextrose 50% Inj) 0 ml IV STAT PRN; Protocol PRN Reason: Hyglycemia Protocol Dextrose (Glutose 15) 0 gm PO ONCE PRN; Protocol PRN Reason: Hypoglycemia Protocol Enoxaparin Sodium (Lovenox) 40 mg SC DAILY [facility] PRN Reason: Protocol Last Admin: 10/30/16 08:29 Dose: 40 mg Gabapentin (Neurontin) 300 mg PO TID PRN PRN Reason: Neuropathic pain Last Admin: 10/29/16 22:12 Dose: 300 mg Glucagon (Glucagen Diagnostic Kit) 0 mg IM STAT PRN; Protocol PRN Reason: Hypoglycemia Protocol Guaifenesin (Mucinex La) 600 mg PO Q12 [facility] Last Admin: 10/30/16 08:29 Dose: 600 mg Home Med (Cu/Se/Vit A/Vit C/Vit E/Zinc [Ocuvite]) 1 tab PO DAILY [facility] Home Med (Travoprost [Travatan Z]) 1 drop [facility] Last Admin: 10/29/16 22:01 Dose: 1 drop Home Med (Brimonidine Tartrate/Timolol [Combigan 0.2%-0.5% Eye Drops]) 1 drop EACHEYE BID@0900,2100 [facility] Last Admin: 10/30/16 08:31 Dose: 1 drop Home Med (Patient's Own Medication) 1 unit TOP [facility] Hydrochlorothiazide (Microzide) 12.5 mg PO DAILY [facility] Last Admin: 10/30/16 08:35 Dose: 12.5 mg Piperacillin Sod/Tazobactam (Sod 3.375 gm/ Sodium Chloride) 100 mls @ 100 mls/ hr IVPB Q8@0500,1300,2100 [facility] Last Admin: 10/30/16 05:04 Dose: 100 mls/hr Vancomycin HCl 1,200 mg/ (Sodium Chloride) 250 mls @ 125 mls/hr IVPB Q12@1000, 2200 [facility] Last Admin: 10/30/16 09:00 Dose: 125 mls/hr Insulin Detemir (Levemir) 80 units SC [facility] Last Admin: 10/29/16 22:02 Dose: 80 u Insulin Human Lispro (Humalog) 5 units SC TID [facility] Last Admin: 10/30/16 08:33 Dose: 5 units Insulin Human Regular (Humulin R) 0 units SC ACHS [facility] PRN Reason: Protocol Last Admin: 10/30/16 08:34 Dose: 1 units Ketoconazole (Nizoral) 1 applic TOP DAILY PRN PRN Reason: Other Losartan Potassium (Cozaar) 50 mg PO DAILY [facility] Last Admin: 10/30/16 08:32 Dose: 50 mg Multivitamins/Minerals (Therapeutic-M Tab) 1 tab PO DAILY [facility] Last Admin: 10/30/16 08:35 Dose: 1 tab Rotmf-7-Fnam Ethyl Esters (Lovaza) 1 gm PO DAILY [facility] Last Admin: 10/30/16 08:29 Dose: 1 gm Pantoprazole Sodium (Protonix Ec Tab) 40 mg PO DAILY [facility] Last Admin: 10/30/16 08:35 Dose: 40 mg - Labs Labs: 10/30/16 06:40 10/30/16 06:40 - Constitutional Appears: Well, No Acute Distress - Head Exam Head Exam: ATRAUMATIC, NORMAL INSPECTION, NORMOCEPHALIC - Eye Exam Eye Exam: Normal appearance - ENT Exam ENT Exam: Mucous Membranes Moist - Respiratory Exam Respiratory Exam: Clear to Ausculation Bilateral, Wheezes, NORMAL BREATHING PATTERN. absent: Rhonchi, Respiratory Distress - Cardiovascular Exam Cardiovascular Exam: REGULAR RHYTHM, +S1, +S2 - GI/Abdominal Exam GI & Abdominal Exam: Soft, Normal Bowel Sounds. absent: Tenderness - Extremities Exam Extremities Exam: Normal Capillary Refill Additional comments: Mild pedal edema of right foot, pedal pulse present. - Back Exam Back Exam: NORMAL INSPECTION - Neurological Exam Neurological Exam: Alert, Oriented x3 - Psychiatric Exam Psychiatric exam: Normal Affect, Normal Mood - Skin Skin Exam: Erythema, Normal Color Assessment and Plan - Assessment and Plan (Free Text) Assessment: Assessment and Plan: 66 yo male with PMH of DMII, HTN, HLD, PVD, CVA and MRSA right foot infection admitted for evaluation and management of Left foot ulcer. 1. Left foot ulcer - Podiatry and ID on board. - Continue with IV Zosyn and Vancomycin - vancomycin trough is 12.8 yesterday. - Wound culture shows Citrobacter Diversus and Enterococcus Faecalis. - Blood culture: no growth - XR of left ankle nad foot- no acute fx, possible avascular necrosis navicular 2. Diabetes Mellitus complicated w/ Neuropathy - C/W Gabapentin 300 mg TID - start Acetaminophen 1000 mg q6 hrs prn for pain. - Hold Metformin 1000mg BID - Continue w/ Humalog 100unit/mL, 20 units SC TID before meals - Continue w/ Levemir 100unit/mL, 100units at bedtime - Continue w/ Atorvastatin 80mg PO HS -accuchecks -SSI 3. HTN - Losartan 50mg PO daily - HCTZ 12.5mg PO daily 4. Hx of CVA - ASA 81 mg daily - Plavix 75mg PO daily 5. Right shoulder pain. -Start menthol cream as pt was applying it at home w/ good relief. 5. Glaucoma - Travaprost ophthalmic solution. - Combigan 0.2-0.5% 6. DVT Prophylaxis -Lovenox Plan: Vanco trough level is 12.8 yesterday. Continue with IV abx for now. ID and podiatry on board.
--- NOTE | 2016-10-30 12:52 | CP.PCM.PN ---
Subjective - Date & Time of Evaluation Date of Evaluation: 10/30/16 Time of Evaluation: 12:52 - Subjective Subjective: ID Note- Pt. seen and examined today. Pt. in good spirits and he feels better. denies any fever or chills. Objective - Vital Signs/Intake and Output Vital Signs (last 24 hours): Temp Pulse Resp BP Pulse Ox 97.7 F 74 20 123/78 96 10/30/16 07:30 10/30/16 07:30 10/30/16 07:30 10/30/16 07:30 10/30/16 07:30 - Medications Medications: Current Medications Acetaminophen (Tylenol 325mg Tab) 975 mg PO Q6 PRN PRN Reason: Other Last Admin: 10/30/16 03:06 Dose: 975 mg Aspirin (Ecotrin) 81 mg PO DAILY [facility] Last Admin: 10/30/16 08:32 Dose: 81 mg Atorvastatin Calcium (Lipitor) 80 mg PO [facility] Last Admin: 10/29/16 22:01 Dose: 80 mg Bacitracin (Bacitracin Oint) 1 applic TOP BID [facility] Last Admin: 10/30/16 08:28 Dose: 1 applic Celecoxib (Celebrex) 200 mg PO DAILY PRN PRN Reason: Pain, moderate (4-7) Clopidogrel Bisulfate (Plavix) 75 mg PO DAILY [facility] Last Admin: 10/30/16 08:35 Dose: 75 mg Dextrose (Dextrose 50% Inj) 0 ml IV STAT PRN; Protocol PRN Reason: Hyglycemia Protocol Dextrose (Glutose 15) 0 gm PO ONCE PRN; Protocol PRN Reason: Hypoglycemia Protocol Enoxaparin Sodium (Lovenox) 40 mg SC DAILY [facility] PRN Reason: Protocol Last Admin: 10/30/16 08:29 Dose: 40 mg Gabapentin (Neurontin) 300 mg PO TID PRN PRN Reason: Neuropathic pain Last Admin: 10/29/16 22:12 Dose: 300 mg Glucagon (Glucagen Diagnostic Kit) 0 mg IM STAT PRN; Protocol PRN Reason: Hypoglycemia Protocol Guaifenesin (Mucinex La) 600 mg PO Q12 [facility] Last Admin: 10/30/16 08:29 Dose: 600 mg Home Med (Travoprost [Travatan Z]) 1 drop [facility]AC[facility]YE [facility] Last Admin: 10/29/16 22:01 Dose: 1 drop Home Med (Brimonidine Tartrate/Timolol [Combigan 0.2%-0.5% Eye Drops]) 1 drop EACHEYE BID@0900,2100 [facility] Last Admin: 10/30/16 08:31 Dose: 1 drop Home Med (Patient's Own Medication) 1 unit TOP HS [facility] Hydrochlorothiazide (Microzide) 12.5 mg PO DAILY [facility] Last Admin: 10/30/16 08:35 Dose: 12.5 mg Piperacillin Sod/Tazobactam (Sod 3.375 gm/ Sodium Chloride) 100 mls @ 100 mls/ hr IVPB Q8@0500,1300,2100 [facility] Last Admin: 10/30/16 11:59 Dose: 100 mls/hr Vancomycin HCl 1,200 mg/ (Sodium Chloride) 250 mls @ 125 mls/hr IVPB Q12@1000, 2200 [facility] Last Admin: 10/30/16 09:00 Dose: 125 mls/hr Insulin Detemir (Levemir) 45 units SC [facility] Insulin Human Lispro (Humalog) 5 units SC TID [facility] Last Admin: 10/30/16 11:59 Dose: 5 units Insulin Human Regular (Humulin R) 0 units SC ACHS [facility] PRN Reason: Protocol Last Admin: 10/30/16 11:59 Dose: 3 units Ketoconazole (Nizoral) 1 applic TOP DAILY PRN PRN Reason: Other Losartan Potassium (Cozaar) 50 mg PO DAILY [facility] Last Admin: 10/30/16 08:32 Dose: 50 mg Multivitamins/Minerals (Therapeutic-M Tab) 1 tab PO DAILY [facility] Last Admin: 10/30/16 08:35 Dose: 1 tab Pvisu-5-Macg Ethyl Esters (Lovaza) 1 gm PO DAILY [facility] Last Admin: 10/30/16 08:29 Dose: 1 gm Pantoprazole Sodium (Protonix Ec Tab) 40 mg PO DAILY [facility] Last Admin: 10/30/16 08:35 Dose: 40 mg - Labs Labs: - Constitutional Appears: No Acute Distress - Head Exam Head Exam: ATRAUMATIC - Eye Exam Eye Exam: EOMI - ENT Exam ENT Exam: Normal Oropharynx - Neck Exam Neck Exam: Full ROM - Respiratory Exam Respiratory Exam: Clear to Ausculation Bilateral, NORMAL BREATHING PATTERN - Cardiovascular Exam Cardiovascular Exam: RRR, +S1, +S2 - GI/Abdominal Exam GI & Abdominal Exam: Soft, Normal Bowel Sounds Additional comments: NT, ND - Extremities Exam Additional comments: left fourth interspace region with no malodor, small open ulcer, minimal serous discharge, surrounding edema in the dorsal foot has decreased and erythema is less as well still somewhat warm to touch - Neurological Exam Neurological Exam: Alert, Awake, Oriented x3 - Additional Findings Additional findings: Laboratory Results - last 72 hr 10/27/16 10/27/16 10/28/16 10:42 21:39 04:00 WBC 10.7 RBC 4.08 L Hgb 11.5 L Hct 34.5 L MCV 84.4 MCH 28.3 MCHC 33.5 RDW 13.8 Plt Count 221 MPV 9.0 Neut % (Auto) 74.1 Lymph % (Auto) 16.2 L [place] % (Auto) 7.4 Eos % (Auto) 1.8 Baso % (Auto) 0.5 Neut # 7.9 H Lymph # 1.7 Putnam # 0.8 Eos # 0.2 Baso # 0.1 Sodium Potassium Chloride Carbon Dioxide Anion Gap BUN Creatinine Est GFR ( Amer) Est GFR (Non-Af Amer) POC Glucose (mg/dL) 235 H 171 H Random Glucose Hemoglobin A1c Calcium Total Bilirubin AST ALT Alkaline Phosphatase Total Protein Albumin Globulin Albumin/Globulin Ratio Vancomycin Trough 10/28/16 10/28/16 10/28/16 05:37 10:52 15:49 WBC RBC Hgb Hct MCV MCH MCHC RDW Plt Count MPV Neut % (Auto) Lymph % (Auto) [place] % (Auto) Eos % (Auto) Baso % (Auto) Neut # Lymph # [place] # Eos # Baso # Sodium Potassium Chloride Carbon Dioxide Anion Gap BUN Creatinine Est GFR ( Amer) Est GFR (Non-Af Amer) POC Glucose (mg/dL) 159 H 198 H 254 H Random Glucose Hemoglobin A1c Calcium Total Bilirubin AST ALT Alkaline Phosphatase Total Protein Albumin Globulin Albumin/Globulin Ratio Vancomycin Trough 10/28/16 10/29/16 10/29/16 21:12 05:08 06:00 WBC 10.4 RBC 4.11 L Hgb 11.6 L Hct 34.7 L MCV 84.4 MCH 28.1 MCHC 33.3 RDW 14.0 Plt Count 217 MPV 8.9 Neut % (Auto) 73.9 Lymph % (Auto) 16.4 L [place] % (Auto) 7.0 Eos % (Auto) 2.2 Baso % (Auto) 0.5 Neut # 7.7 H Lymph # 1.7 Putnam # 0.7 Eos # 0.2 Baso # 0.0 Sodium Potassium Chloride Carbon Dioxide Anion Gap BUN Creatinine Est GFR ( Amer) Est GFR (Non-Af Amer) POC Glucose (mg/dL) 212 H 91 Random Glucose Hemoglobin A1c Calcium Total Bilirubin AST ALT Alkaline Phosphatase Total Protein Albumin Globulin Albumin/Globulin Ratio Vancomycin Trough 10/29/16 10/29/16 10/29/16 07:00 09:30 10:58 WBC RBC Hgb Hct MCV MCH MCHC RDW Plt Count MPV Neut % (Auto) Lymph % (Auto) [place] % (Auto) Eos % (Auto) Baso % (Auto) Neut # Lymph # [place] # Eos # Baso # Sodium 137 Potassium 3.5 L Chloride 103 Carbon Dioxide 26 Anion Gap 12 BUN 12 Creatinine 1.0 Est GFR ( Amer) > 60 Est GFR (Non-Af Amer) > 60 POC Glucose (mg/dL) 211 H Random Glucose 87 Hemoglobin A1c Calcium 8.8 Total Bilirubin 0.7 AST 21 ALT 35 Alkaline Phosphatase 99 Total Protein 6.6 Albumin 3.5 Globulin 3.0 Albumin/Globulin Ratio 1.2 Vancomycin Trough 12.8 H 10/29/16 10/29/16 10/30/16 16:14 21:55 06:40 WBC RBC Hgb Hct MCV MCH MCHC RDW Plt Count MPV Neut % (Auto) Lymph % (Auto) [place] % (Auto) Eos % (Auto) Baso % (Auto) Neut # Lymph # [place] # Eos # Baso # Sodium Potassium Chloride Carbon Dioxide Anion Gap BUN Creatinine Est GFR ( Amer) Est GFR (Non-Af Amer) POC Glucose (mg/dL) 223 H 333 H Random Glucose Hemoglobin A1c 8.2 H D Calcium Total Bilirubin AST ALT Alkaline Phosphatase Total Protein Albumin Globulin Albumin/Globulin Ratio Vancomycin Trough 10/30/16 10/30/16 10/30/16 06:40 06:40 10:42 WBC 10.0 RBC 4.03 L Hgb 11.3 L Hct 34.1 L MCV 84.8 MCH 28.2 MCHC 33.3 RDW 13.7 Plt Count 227 MPV 8.4 Neut % (Auto) 72.9 Lymph % (Auto) 16.5 L [place] % (Auto) 7.1 Eos % (Auto) 3.0 Baso % (Auto) 0.5 Neut # 7.3 H Lymph # 1.7 Putnam # 0.7 Eos # 0.3 Baso # 0.1 Sodium 138 Potassium 3.7 Chloride 104 Carbon Dioxide 26 Anion Gap 12 BUN 14 Creatinine 1.0 Est GFR ( Amer) > 60 Est GFR (Non-Af Amer) > 60 POC Glucose (mg/dL) 284 H Random Glucose 155 H Hemoglobin A1c Calcium 8.6 Total Bilirubin AST ALT Alkaline Phosphatase Total Protein Albumin Globulin Albumin/Globulin Ratio Vancomycin Trough 10/30/16 15:51 WBC RBC Hgb Hct MCV MCH MCHC RDW Plt Count MPV Neut % (Auto) Lymph % (Auto) Put[place] % (Auto) Eos % (Auto) Baso % (Auto) Neut # Lymph # Putnam # Eos # Baso # Sodium Potassium Chloride Carbon Dioxide Anion Gap BUN Creatinine Est GFR ( Amer) Est GFR (Non-Af Amer) POC Glucose (mg/dL) 270 H Random Glucose Hemoglobin A1c Calcium Total Bilirubin AST ALT Alkaline Phosphatase Total Protein Albumin Globulin Albumin/Globulin Ratio Vancomycin Trough Microbiology 10/27/16 12:00 Blood Blood Culture - Preliminary NO GROWTH AFTER 3 DAYS 10/27/16 12:30 Blood Blood Culture - Preliminary NO GROWTH AFTER 48 HOURS 10/27/16 12:00 Toe Gram Stain - Final 10/27/16 12:00 Toe Wound Culture - Final Citrobacter Diversus Enterococcus Faecalis Accession No. : [id number] Patient Name / ID : LOREN Don / [id number] Exam Date : 10/27/2016 11:18:12 ( Approved ) Study Comment : Sex / Age : M / 66Y Creator : Trevor Moser MD Dictator : Trevor Moser MD [employer] : Sales Rep : Trevor Moser MD Approver2 : Report Date : 10/28/2016 13:04:11 My Comment : PROCEDURE: HISTORY: swelling and drainage COMPARISON: TECHNIQUE: FINDINGS: No acute fracture. Flatfoot deformity. Fixation screw traversing the midfoot region. Extensive soft tissue swelling with a fragmentation noted along the anterior tibial plafond. IMPRESSION: No acute fracture. Accession No. : [id number] Patient Name / ID : LOREN GUTIÉRREZ M / [id number] Exam Date : 10/27/2016 11:03:01 ( Approved ) Study Comment : Sex / Age : M / 66Y Creator : Trevor Moser MD Dictator : Trevor Moser MD [employer] : Sales Rep : Trevor Moser MD Approver2 : Report Date : 10/28/2016 12:51:53 My Comment : PROCEDURE: HISTORY: swelling and drainage COMPARISON: 11/05/2015 TECHNIQUE: FINDINGS: Stable appearance/ configuration orthopedic hardware traversing the 1st metatarsal, cuneiform and associated tarsal bones. No evidence of hardware failure or loosening. 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 Extensive dorsal soft tissue swelling. Flatfoot deformity. IMPRESSION: As above. Assessment and Plan (1) Diabetic foot ulcer Status: Acute (2) Cellulitis Status: Acute - Assessment and Plan (Free Text) Assessment: A/P- 66 year old male with DM II, HTN, TIA admitted with left fourth toe interspace open ulcer draining sanguinous fluid. pt. is currently stable and not septic. afebrile minimal leukocytosis has resolved wound cx from this admission- E.fecalis sens to vanco and citrobacter pansenssitive foot xray report- FINDINGS: Stable appearance/ configuration orthopedic hardware traversing the 1st metatarsal, cuneiform and associated tarsal bones. No evidence of hardware failure or loosening. 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 Extensive dorsal soft tissue swelling. Flatfoot deformity. plan- advise to continue with IV vancomycin day #3 covers the E.fecalis. keep trough < 15. based on the wound cx results can de-escalate the gram neg coverage to ceftriaxone since the citrobacter is sensitive to this antibiotic based on micro report. in light of the fact that pt. has extensive surrouding cellulitis and hardware in place advise to complete total of 4 weeks of IV abx. since based on xray report no loosening of hardware , no rec for hardware removal at this time, however, pt. 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 All the above d/w patient and all his questions were answered and he verbalize full understanding of all above and agree with above plan of care.
[2016-10-30] MEDS ORDERED: Albuterol-Ipratrop 3 mg / 0.5 (3 ml) UD INH PRN (16:35)
[2016-10-30] MEDS: cefTRIAXone 2 GM in Sodium Chloride 0.9% 100 ML IVPB SCH (18:48)
[2016-10-30] MEDS: Patient's Own Med (Travoprost [Travatan Z] 1 DROP) EACHEYE SCH (21:03)
[2016-10-30] MEDS: Insulin Detemir 100 Units/ml Inj SC SCH (22:10)
[2016-10-31 06:33] LABS: ALB/GLOB RATIO 1.1 (1.0-2.1); ALKALINE PHOSPHATASE 107 U/L (38-126); ALT/SGPT 37 U/L (21-72); AST/SGOT 21 U/L (17-59); BILIRUBIN,TOTAL 0.5 mg/dl (0.2-1.3); BLOOD UREA NITROGEN 14 mg/dl (9-20); CALCIUM 8.7 mg/dL (8.4-10.2); CARBON DIOXIDE 26 mmol/L (22-30); CHLORIDE 102 mmol/L (98-107); CHOLESTEROL 96 mg/dL (0-199); GFR AFRICAN-AMERICAN > 60; GLUCOSE,RANDOM 189 mg/dL (75-110); POTASSIUM 3.7 MMOL/L (3.6-5.0); SODIUM 138 mmol/l (132-148); TOTAL PROTEIN 6.7 G/DL (6.3-8.2)
[2016-10-31] MEDS: Insulin Regular 100 units/ml SC SCH ×3 (06:33→17:14)
[2016-10-31 06:35] LABS: BASO % 0.4 % (0.0-2.0); EOS # 0.3 K/uL (0.0-0.7); EOS % 3.1 % (0.0-4.0); HEMATOCRIT 34.4 % (35.0-51.0); LYMPH # 1.7 K/uL (1.0-4.3); LYMPH % 16.3 % (20.0-40.0); MEAN CELL VOLUME 84.9 fl (80.0-94.0); MEAN CORPUSCULAR HEMOGLOBIN 28.4 pg (27.0-31.0); MEAN CORPUSCULAR HGB CONC 33.5 g/dL (33.0-37.0); MEAN PLATELET VOLUME 8.9 fl (7.2-11.7); MONO # 0.6 K/uL (0.0-0.8); MONO % 6.2 % (0.0-10.0); NEUT # 7.7 K/uL (1.8-7.0); RED CELL DISTRIBUTION WIDTH 13.7 % (11.5-14.5); WHITE BLOOD COUNT 10.4 K/uL (4.8-10.8)
--- NOTE | 2016-10-31 06:44 | CP.PCM.PN ---
Subjective - Date & Time of Evaluation Date of Evaluation: 10/31/16 Time of Evaluation: 06:45 - Subjective Subjective: Podiatry Progress note for Dr. Santamaria 66 y/o male with left foot 4th interspace ulcer and Charcot foot deformity seen at bedside this morning. Patient appears in NAD and is AAOx3. Patient states he is feeling well today and believes that he is improving. Patient admits to no acute events overnight. Patient denies any F/C/N/V/SOB today. Patient denies of any other pedal complains at this time. Objective - Vital Signs/Intake and Output Vital Signs (last 24 hours): Temp Pulse Resp BP Pulse Ox 97.6 F 71 18 148/80 95 10/30/16 16:42 10/30/16 16:42 10/30/16 16:42 10/30/16 16:42 10/30/16 16:42 - Medications Medications: Current Medications Acetaminophen (Tylenol 325mg Tab) 975 mg PO Q6 PRN PRN Reason: Other Last Admin: 10/30/16 03:06 Dose: 975 mg Albuterol/Ipratropium (Duoneb 3 Mg/0.5 Mg (3 Ml) Ud) 3 ml INH RQ6 PRN PRN Reason: Shortness of Breath Aspirin (Ecotrin) 81 mg PO DAILY [facility] Last Admin: 10/30/16 08:32 Dose: 81 mg Atorvastatin Calcium (Lipitor) 80 mg PO HS [facility] Last Admin: 10/30/16 21:02 Dose: 80 mg Bacitracin (Bacitracin Oint) 1 applic TOP BID [facility] Last Admin: 10/30/16 16:10 Dose: 1 applic Celecoxib (Celebrex) 200 mg PO DAILY PRN PRN Reason: Pain, moderate (4-7) Clopidogrel Bisulfate (Plavix) 75 mg PO DAILY [facility] Last Admin: 10/30/16 08:35 Dose: 75 mg Dextrose (Dextrose 50% Inj) 0 ml IV STAT PRN; Protocol PRN Reason: Hyglycemia Protocol Dextrose (Glutose 15) 0 gm PO ONCE PRN; Protocol PRN Reason: Hypoglycemia Protocol Enoxaparin Sodium (Lovenox) 40 mg SC DAILY [facility] PRN Reason: Protocol Last Admin: 10/30/16 08:29 Dose: 40 mg Gabapentin (Neurontin) 300 mg PO TID PRN PRN Reason: Neuropathic pain Last Admin: 10/29/16 22:12 Dose: 300 mg Glucagon (Glucagen Diagnostic Kit) 0 mg IM STAT PRN; Protocol PRN Reason: Hypoglycemia Protocol Guaifenesin (Mucinex La) 600 mg PO Q12 [facility] Last Admin: 10/30/16 21:02 Dose: 600 mg Home Med (Travoprost [Travatan Z]) 1 drop EACHEYE HS [facility] Last Admin: 10/30/16 21:03 Dose: 1 drop Home Med (Brimonidine Tartrate/Timolol [Combigan 0.2%-0.5% Eye Drops]) 1 drop EACHEYE BID@0900,2100 [facility] Last Admin: 10/30/16 21:03 Dose: 1 drop Home Med (Patient's Own Medication) 1 unit TOP [facility] Hydrochlorothiazide (Microzide) 12.5 mg PO DAILY [facility] Last Admin: 10/30/16 08:35 Dose: 12.5 mg Vancomycin HCl 1,200 mg/ (Sodium Chloride) 250 mls @ 125 mls/hr IVPB Q12@1000, 2200 [facility] Last Admin: 10/30/16 21:02 Dose: 125 mls/hr Ceftriaxone Sodium 2 gm/ (Sodium Chloride) 100 mls @ 100 mls/hr IVPB DAILY [facility] Last Admin: 10/30/16 18:48 Dose: 100 mls/hr Insulin Detemir (Levemir) 45 units SC [facility] Last Admin: 10/30/16 22:10 Dose: 45 units Insulin Human Lispro (Humalog) 5 units SC TID [facility] Last Admin: 10/30/16 16:06 Dose: 5 units Insulin Human Regular (Humulin R) 0 units SC ACHS [facility] PRN Reason: Protocol Last Admin: 10/31/16 06:33 Dose: 2 units Ketoconazole (Nizoral) 1 applic TOP DAILY PRN PRN Reason: Other Losartan Potassium (Cozaar) 50 mg PO DAILY [facility] Last Admin: 10/30/16 08:32 Dose: 50 mg Multivitamins/Minerals (Therapeutic-M Tab) 1 tab PO DAILY [facility] Last Admin: 10/30/16 08:35 Dose: 1 tab Qigpo-5-Euxz Ethyl Esters (Lovaza) 1 gm PO DAILY [facility] Last Admin: 10/30/16 08:29 Dose: 1 gm Pantoprazole Sodium (Protonix Ec Tab) 40 mg PO DAILY [facility] Last Admin: 10/30/16 08:35 Dose: 40 mg - Labs Labs: 10/30/16 06:40 10/30/16 06:40 - Constitutional Appears: Well, Non-toxic, No Acute Distress - Extremities Exam Additional comments: Vasc: DP/PT 2/4 B/L. Temperature gradient warm to cool on R, warm to warm on L. CFT < 3 sec to all digits. +2 pitting edema noted to left leg extending distally to dorsum of L foot - Swelling appears to be resolving from yesterday, skin tension line noted on the dorsolateral aspect of the left foot Derm: 0.8cm x 0.6cm x 0.2cm circular ulceration noted to medial aspect of L 5th digit in 4th interspace. Granular tissue noted to wound base with venkatesh-wound macerated sloughing skin. minimal malodor noted. No active drainage. No tunneling or undermining. Wound borders are macerated. Erythema surrounding 5th digit appears to be resolving Neuro: Protective sensation grossly intact Ortho: No tenderness to palpation of L foot 5th digit - Neurological Exam Neurological Exam: Alert, Awake, Oriented x3 - Psychiatric Exam Psychiatric exam: Normal Affect, Normal Mood Assessment and Plan - Assessment and Plan (Free Text) Assessment: 66 y/o male with left foot 4th interspace ulcer and Charcot deformity secondary to DM Plan: Pt seen and evaluated at bedside Discussed plan with attending Dr. Santamaria Chart, labs and vitals reviewed- afebrile, WBC 10.0 as of 11/29 X-rays L foot- diffuse erosive destructive bony changes indicative of Charcot foot, no evidence of OM Wound cx final- Citrobacter, Enterococcus Faecalis (sensitive to Vancomycin and Zosyn) Betadine and DSD applied to L foot ulcer Cont IV abx per ID - Vanco, Zosyn - Patient to complete total of 4 weeks of IV abx with a PICC line as per Dr. Roy No surgical intervention needed from podiatry standpoint Patient to follow up in the wound care center with Dr. Santamaria once D/C home Podiatry to continue to follow patient while in house
[2016-10-31] MEDS: Bacitracin OINT 15GM TOP SCH ×2 (08:42→17:13)
[2016-10-31] MEDS: Patient's Own Med (Brimonidine Tartrate/Timolol [Combigan 0.2%-0.5% Eye Drops] 1 DROP) EACHEYE SCH (08:42)
[2016-10-31] MEDS: Insulin Lispro (humaLOG) 100 Units/ml Inj SC SCH ×3 (08:44→17:14)
[2016-10-31] MEDS: Insulin Detemir 100 Units/ml Inj SC SCH (08:44)
[2016-10-31] MEDS: Omega-3-Acid Ethyl Esters 1 GM Cap PO SCH (08:47)
[2016-10-31] MEDS: Multivitamin With Minerals Tab PO SCH (08:49)
[2016-10-31] MEDS: guaiFENesin 600 mg ER Tab PO SCH (08:49)
[2016-10-31] MEDS: Pantoprazole 40 mg EC Tab PO SCH (08:49)
[2016-10-31] MEDS: cefTRIAXone 2 GM in Sodium Chloride 0.9% 100 ML IVPB SCH (08:52)
--- NOTE | 2016-10-31 09:59 | CP.PCM.PN ---
Subjective - Date & Time of Evaluation Date of Evaluation: 10/31/16 Time of Evaluation: 08:10 - Subjective Subjective: Pt is seen at bedside this morning, sitting on a chair.. Had uneventful night. Pt is tolerating PO food and liquid. Denies any wheezing this am. Pt denies any left foot pain. Denies chest pain, dyspnea, cough, calf pain or fever. Objective - Vital Signs/Intake and Output Vital Signs (last 24 hours): Temp Pulse Resp BP Pulse Ox 98.4 F 72 20 127/80 96 10/31/16 08:55 10/31/16 09:30 10/31/16 08:55 10/31/16 08:55 10/31/16 08:55 - Medications Medications: Current Medications Acetaminophen (Tylenol 325mg Tab) 975 mg PO Q6 PRN PRN Reason: Other Last Admin: 10/30/16 03:06 Dose: 975 mg Albuterol/Ipratropium (Duoneb 3 Mg/0.5 Mg (3 Ml) Ud) 3 ml INH RQ6 PRN PRN Reason: Shortness of Breath Last Admin: 10/31/16 09:27 Dose: 3 ml Aspirin (Ecotrin) 81 mg PO DAILY [facility] Last Admin: 10/30/16 08:32 Dose: 81 mg Atorvastatin Calcium (Lipitor) 80 mg PO HS [facility] Last Admin: 10/30/16 21:02 Dose: 80 mg Bacitracin (Bacitracin Oint) 1 applic TOP BID [facility] Last Admin: 10/31/16 08:42 Dose: 1 applic Celecoxib (Celebrex) 200 mg PO DAILY PRN PRN Reason: Pain, moderate (4-7) Clopidogrel Bisulfate (Plavix) 75 mg PO DAILY [facility] Last Admin: 10/30/16 08:35 Dose: 75 mg Dextrose (Dextrose 50% Inj) 0 ml IV STAT PRN; Protocol PRN Reason: Hyglycemia Protocol Dextrose (Glutose 15) 0 gm PO ONCE PRN; Protocol PRN Reason: Hypoglycemia Protocol Enoxaparin Sodium (Lovenox) 40 mg SC DAILY INDIR[facility] PRN Reason: Protocol Last Admin: 10/30/16 08:29 Dose: 40 mg Gabapentin (Neurontin) 300 mg PO TID PRN PRN Reason: Neuropathic pain Last Admin: 10/29/16 22:12 Dose: 300 mg Glucagon (Glucagen Diagnostic Kit) 0 mg IM STAT PRN; Protocol PRN Reason: Hypoglycemia Protocol Guaifenesin (Mucinex La) 600 mg PO Q12 [facility] Last Admin: 10/31/16 08:49 Dose: 600 mg Home Med (Travoprost [Travatan Z]) 1 drop EACHEYE HS [facility] Last Admin: 10/30/16 21:03 Dose: 1 drop Home Med (Brimonidine Tartrate/Timolol [Combigan 0.2%-0.5% Eye Drops]) 1 drop EACHEYE BID@0900,2100 [facility] Last Admin: 10/31/16 08:42 Dose: 1 drop Home Med (Patient's Own Medication) 1 unit TOP [facility] Hydrochlorothiazide (Microzide) 12.5 mg PO DAILY [facility] Last Admin: 10/31/16 08:49 Dose: 12.5 mg Vancomycin HCl 1,200 mg/ (Sodium Chloride) 250 mls @ 125 mls/hr IVPB Q12@1000, 2200 [facility] Last Admin: 10/31/16 09:07 Dose: 125 mls/hr Ceftriaxone Sodium 2 gm/ (Sodium Chloride) 100 mls @ 100 mls/hr IVPB DAILY [facility] Last Admin: 10/31/16 08:52 Dose: 100 mls/hr Insulin Detemir (Levemir) 45 units SC [facility] Last Admin: 10/31/16 08:44 Dose: 45 units Insulin Human Lispro (Humalog) 5 units SC TID [facility] Last Admin: 10/31/16 08:44 Dose: 5 units Insulin Human Regular (Humulin R) 0 units SC ACHS [facility] PRN Reason: Protocol Last Admin: 10/31/16 06:33 Dose: 2 units Ketoconazole (Nizoral) 1 applic TOP DAILY PRN PRN Reason: Other Losartan Potassium (Cozaar) 50 mg PO DAILY [facility] Last Admin: 10/31/16 08:43 Dose: 50 mg Multivitamins/Minerals (Therapeutic-M Tab) 1 tab PO DAILY [facility] Last Admin: 10/31/16 08:49 Dose: 1 tab Roccp-5-Kcmd Ethyl Esters (Lovaza) 1 gm PO DAILY [facility] Last Admin: 10/31/16 08:47 Dose: 1 gm Pantoprazole Sodium (Protonix Ec Tab) 40 mg PO DAILY [facility] Last Admin: 10/31/16 08:49 Dose: 40 mg - Labs Labs: 10/31/16 05:25 10/31/16 05:25 - Constitutional Appears: Well, Non-toxic, No Acute Distress - Head Exam Head Exam: ATRAUMATIC, NORMAL INSPECTION, NORMOCEPHALIC - Eye Exam Eye Exam: Normal appearance - ENT Exam ENT Exam: Mucous Membranes Moist - Neck Exam Neck Exam: Normal Inspection - Respiratory Exam Respiratory Exam: Clear to Ausculation Bilateral, NORMAL BREATHING PATTERN. absent: Rhonchi, Wheezes - Cardiovascular Exam Cardiovascular Exam: REGULAR RHYTHM - Extremities Exam Extremities Exam: absent: Calf Tenderness, Tenderness Additional comments: Pedal edema of right foot. faint pedal pulse present. - Neurological Exam Neurological Exam: Alert, Awake, Oriented x3 - Psychiatric Exam Psychiatric exam: Normal Affect, Normal Mood - Skin Skin Exam: Dry, Intact. absent: Rash, Warm Assessment and Plan - Assessment and Plan (Free Text) Assessment: Assessment and Plan: 66 yo male with PMH of DMII, HTN, HLD, PVD, CVA and MRSA right foot infection admitted for evaluation and management of Left foot ulcer. 1. Left foot ulcer - Podiatry and ID on board. - Continue with IV Cefriaxone and Vancomycin - vancomycin trough is 12.8 on 10/29/16. - Wound culture shows Citrobacter Diversus and Enterococcus Faecalis. 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 - Pt is to get PICC line for assisted abx use. 2. Diabetes Mellitus complicated w/ Neuropathy - C/W Gabapentin 300 mg TID - start Acetaminophen 1000 mg q6 hrs prn for pain. - Hold Metformin 1000mg BID - Continue w/ Humalog 100unit/mL, 5 units SC TID before meals - Continue w/ Levemir 100unit/mL, 45 units in AM and 45 units in PM. - Continue w/ Atorvastatin 80mg PO HS -accuchecks -SSI 3. HTN - Losartan 50mg PO daily - HCTZ 12.5mg PO daily 4. Hx of CVA - ASA 81 mg daily - Plavix 75mg PO daily 5. Right shoulder pain. -Continue menthol cream as pt was applying it at home w/ good relief. 5. Glaucoma - Travaprost ophthalmic solution. - Combigan 0.2-0.5% 6. DVT Prophylaxis -Lovenox Plan: Vanco trough level is 12.8 on 10/29/16. Continue with IV abx for 4 weeks. Scheduled to have PICC line today. ID and podiatry on board. Disposition: Possibly discharge home later today.
[2016-10-31] MEDS ORDERED: Lidocaine 1% Inj (20ml) ONE (16:26)
--- NOTE | 2016-10-31 16:41 | PCM.SURG1 ---
Surgeon's Initial Post Op Note - Surgeon's Notes Surgeon: Nandini Acute Care Certified Nursing Assistant: None Type of Anesthesia: Local Pre-Operative Diagnosis: Infection Operative Findings: Patent left brachial vein Post-Operative Diagnosis: Infection Operation Performed: Left brachial vein 45cm SL 4F PICC with the tip at the RA/ SVC junction. Specimen/Specimens Removed: None Estimated Blood Loss: EBL {In ML}: 1 Date of Surgery/Procedure: 10/31/16 Time of Surgery/Procedure: 16:35
[2016-10-31 17:19] VITALS: BP 158/78; PULSE 84; RESP 18; TEMP 98.1; O2SAT 98
[2016-10-31] MEDS: Enoxaparin 40 mg Syringe SC SCH (17:25)
--- NOTE | 2016-11-02 15:04 | CP.PCM.DIS ---
Provider - Provider Date of Admission: 10/27/16 13:35 Attending physician: Helio Streeter MD Primary care physician: Dr. Leonardo Conner Time Spent in preparation of Discharge (in minutes): 45 Diagnosis - Discharge Diagnosis (1) Charcot foot due to diabetes mellitus Status: Chronic (2) Diabetic foot ulcer Status: Chronic (3) Foot pain, left Status: Chronic Hospital Course - Lab Results Lab Results: Micro Results 10/27/16 12:30 Blood Blood Culture - Final NO GROWTH AFTER 5 DAYS 10/27/16 12:30 Blood Gram Stain - Final TEST NOT PERFORMED 10/27/16 12:00 Blood Blood Culture - Final NO GROWTH AFTER 5 DAYS 10/27/16 12:00 Blood Gram Stain - Final TEST NOT PERFORMED 10/27/16 12:00 Toe Gram Stain - Final 10/27/16 12:00 Toe Wound Culture - Final Citrobacter Diversus Enterococcus Faecalis Most Recent Lab Values WBC 10.4 K/uL (4.8-10.8) 10/31/16 05:25 RBC 4.05 Mil/uL (4.40-5.90) L 10/31/16 05:25 Hgb 11.5 g/dL (12.0-18.0) L 10/31/16 05:25 Hct 34.4 % (35.0-51.0) L 10/31/16 05:25 MCV 84.9 fl (80.0-94.0) 10/31/16 05:25 MCH 28.4 pg (27.0-31.0) 10/31/16 05:25 MCHC 33.5 g/dL (33.0-37.0) 10/31/16 05:25 RDW 13.7 % (11.5-14.5) 10/31/16 05:25 Plt Count 247 K/uL (130-400) 10/31/16 05:25 MPV 8.9 fl (7.2-11.7) 10/31/16 05:25 Neut % (Auto) 74.0 % (50.0-75.0) 10/31/16 05:25 Lymph % (Auto) 16.3 % (20.0-40.0) L 10/31/16 05:25 Walsh % (Auto) 6.2 % (0.0-10.0) 10/31/16 05:25 Eos % (Auto) 3.1 % (0.0-4.0) 10/31/16 05:25 Baso % (Auto) 0.4 % (0.0-2.0) 10/31/16 05:25 Neut # 7.7 K/uL (1.8-7.0) H 10/31/16 05:25 Lymph # 1.7 K/uL (1.0-4.3) 10/31/16 05:25 Walsh # 0.6 K/uL (0.0-0.8) 10/31/16 05:25 Eos # 0.3 K/uL (0.0-0.7) 10/31/16 05:25 Baso # 0.0 K/uL (0.0-0.2) 10/31/16 05:25 ESR 60 mm/hr (0-20) H 10/27/16 12:00 pO2 23 mm/Hg (30-55) L 10/27/16 12:00 VBG pH 7.37 (7.32-7.43) 10/27/16 12:00 VBG pCO2 52 mmHg (40-60) 10/27/16 12:00 VBG HCO3 26.1 mmol/L 10/27/16 12:00 VBG Total CO2 31.7 mmol/L (22-28) H 10/27/16 12:00 VBG O2 Sat (Calc) 41.8 % (40-65) 10/27/16 12:00 VBG Base Excess 3.6 mmol/L (0.0-2.0) H 10/27/16 12:00 VBG Potassium 3.7 mmol/L (3.6-5.2) 10/27/16 12:00 Sodium 133.0 mmol/L (132-148) 10/27/16 12:00 Chloride 101.0 mmol/L (98-107) 10/27/16 12:00 Glucose 206 mg/dL (75-110) H 10/27/16 12:00 Lactate 2.1 mmol/L (0.7-2.1) 10/27/16 12:00 FiO2 21.0 % 10/27/16 12:00 Sodium 138 mmol/l (132-148) 10/31/16 05:25 Potassium 3.7 MMOL/L (3.6-5.0) 10/31/16 05:25 Chloride 102 mmol/L (98-107) 10/31/16 05:25 Carbon Dioxide 26 mmol/L (22-30) 10/31/16 05:25 Anion Gap 14 (10-20) 10/31/16 05:25 BUN 14 mg/dl (9-20) 10/31/16 05:25 Creatinine 1.0 mg/dL (0.8-1.5) 10/31/16 05:25 Est GFR ( Amer) > 60 10/31/16 05:25 Est GFR (Non-Af Amer) > 60 10/31/16 05:25 POC Glucose (mg/dL) 296 mg/dL (65-110) H 10/31/16 17:13 Random Glucose 189 mg/dL (75-110) H 10/31/16 05:25 Hemoglobin A1c 8.2 % (4.2-6.5) H D 10/30/16 06:40 Calcium 8.7 mg/dL (8.4-10.2) 10/31/16 05:25 Total Bilirubin 0.5 mg/dl (0.2-1.3) 10/31/16 05:25 AST 21 U/L (17-59) 10/31/16 05:25 ALT 37 U/L (21-72) 10/31/16 05:25 Alkaline Phosphatase 107 U/L (38-126) 10/31/16 05:25 Total Protein 6.7 G/DL (6.3-8.2) 10/31/16 05:25 Albumin 3.6 g/dL (3.5-5.0) 10/31/16 05:25 Globulin 3.2 gm/dL (2.2-3.9) 10/31/16 05:25 Albumin/Globulin Ratio 1.1 (1.0-2.1) 10/31/16 05:25 Triglycerides 91 mg/DL (0-149) D 10/31/16 05:25 Cholesterol 96 mg/dL (0-199) 10/31/16 05:25 LDL Cholesterol Direct 46 mg/dL (0-129) 10/31/16 05:25 HDL Cholesterol 25 MG/DL (30-70) L 10/31/16 05:25 Venous Blood Potassium 3.7 mmol/L (3.6-5.2) 10/27/16 12:00 Vancomycin Trough 12.8 ug/mL (5.0-10.0) H 10/29/16 09:30 - Hospital Course Hospital Course: 66 y/o male with PMHx CVA, TIA, DM, HTN, HLD, PVD was admitted on 10/27/16 for evaluation and management L foot ulcer suppuration. 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 Extensive dorsal soft tissue swelling. EKG was normal. Blood cx were negative and wound cx shows Citrobacter Diversus and Enterrococcus Faecalis. ID and podiatry were consulted throughout the patient hospital stay. Pt was on IV Zosyn and Vancomycin 1200 mg during his stay. ID recommended to have PICC line placed for custodial IV abx. PICC line was inserted on 10/31/16. Pt was discharged home with PICC line to received IV Vancomycin 1200 mg QD and Ceftriaxone 2 gm daily. Pt was also sent home with 20 mg lasix every other day. Patient is to f/u with wound care center with Dr. Santamaria. Scheduled for f/u with his primary care physician on 12/01/16. Discharge Exam - Head Exam Head Exam: ATRAUMATIC, NORMAL INSPECTION, NORMOCEPHALIC - Eye Exam Eye Exam: EOMI, Normal appearance - ENT Exam ENT Exam: Mucous Membranes Moist - Neck Exam Neck exam: Normal Inspection - Respiratory Exam Respiratory Exam: Clear to PA & Lateral, NORMAL BREATHING PATTERN - Cardiovascular Exam Cardiovascular Exam: REGULAR RHYTHM, +S1, +S2 - GI/Abdominal Exam GI & Abdominal Exam: Normal Bowel Sounds, Soft. absent: Tenderness - Extremities Exam Extremities exam: pedal edema - Neurological Exam Neurological exam: Alert, Oriented x3 - Psychiatric Exam Psychiatric exam: Normal Affect, Normal Mood Discharge Plan - Discharge Medications Prescriptions: cefTRIAXone [Rocephin] 2 gm IVPB DAILY 28 Days #28 vial Furosemide [Lasix] 20 mg PO QOTHERDAY #30 tab Vancomycin [Vancomycin Inj] 1.2 gm IVPB BID 28 Days #56 - Follow Up Plan Condition: GUARDED Disposition: HOME/ ROUTINE Instructions: Cellulitis (DC), Diabetic Foot Care (DC), Peripherally Inserted Central Catheters and Midline Catheters (DC), Acute Wound Care (DC) Additional Instructions: follow up [facility] Dr. Leonardo Mckinney 12/01/16 840 AM after 4wk abx completed with PICC [facility] [phone] Referrals: [facility] [Outside] [facility] [Outside] German Santamaria DPM [Staff Provider] -
== END 2016-10-31 19:34 | disposition home or self-care (01) | DRG 74 ==
LOC: H.ER 10:00 → H.ERHOLD 13:35 → H.MEDSURG1 15:36
PROVIDERS: ADMIT Family Medicine; ATTEND Family Medicine
PROC: 3E0234Z Introduction of Serum, Toxoid and Vaccine into Muscle, Percutaneous Approach (ICD-10-PCS; 2016-10-27)
PROC: 02HV33Z Insertion of Infusion Device into Superior Vena Cava, Percutaneous Approach (ICD-10-PCS; principal; 2016-10-31)
DX: E11.610 Type 2 diabetes mellitus with diabetic neuropathic arthropathy (principal); E11.51 Type 2 diabetes mellitus with diabetic peripheral angiopathy without gangrene; E11.40 Type 2 diabetes mellitus with diabetic neuropathy, unspecified; L03.116 Cellulitis of left lower limb; E11.621 Type 2 diabetes mellitus with foot ulcer; E78.00 Pure hypercholesterolemia, unspecified; E78.5 Hyperlipidemia, unspecified; H40.9 Unspecified glaucoma; I10 Essential (primary) hypertension; Z86.73 Personal history of transient ischemic attack (TIA), and cerebral infarction without residual deficits; K21.9 Gastro-esophageal reflux disease without esophagitis; L97.529 Non-pressure chronic ulcer of other part of left foot with unspecified severity; Z79.02 Long term (current) use of antithrombotics/antiplatelets; Z79.1 Long term (current) use of non-steroidal anti-inflammatories (NSAID); Z79.82 Long term (current) use of aspirin; Z79.84 Long term (current) use of oral hypoglycemic drugs; Z79.899 Other long term (current) drug therapy; Z87.891 Personal history of nicotine dependence; Z90.49 Acquired absence of other specified parts of digestive tract; Z95.5 Presence of coronary angioplasty implant and graft; Z86.14 Personal history of Methicillin resistant Staphylococcus aureus infection; K29.70 Gastritis, unspecified, without bleeding; F41.9 Anxiety disorder, unspecified; F32.89 Other specified depressive episodes; Z23 Encounter for immunization; B95.2 Enterococcus as the cause of diseases classified elsewhere; M25.511 Pain in right shoulder

== ENCOUNTER 2016-11-03 09:37 | Inpatient (IN) | payer OTHER, MEDICARE ==
[2016-11-03 09:37] VITALS: BMI 36.9
--- NOTE | 2016-11-03 10:40 | ED PDOC ---
HPI: Fever Fever Onset Was: 11/02/16 (full HPI below) The Fever Was Measured: Oral Recent Sick Contacts: No Have you had recent travel within the past 21 days to any of the following countries: [place], [place], [place] or [place]?: No Does Patient Have Hx Of Febrile Seizures: No Did The Patient Have A Seizure Today: No <Allen Quiroz - Last Filed: 11/03/16 12:51> Past Medical History Reviewed: Historical Data, Nursing Documentation, Vital Signs - Medical History PMH: Anxiety, CVA (2010), Depression, Diabetes (type II), Gastritis, GERD, HTN, Hypercholesterolemia, TIA Denies: Arthritis, CHF, COPD, HIV, Hypothyroidism, Chronic Kidney Disease, Rheumatoid Arthritis - Surgical History Surgical History: Appendectomy (05/30/10), Coronary Stent (PERIPHERAL ANGIOGRAM STENT IMPLANTED 08/12/2012) - Family History Family History: States: Unknown Family Hx <Allen Quiroz - Last Filed: 11/03/16 12:51> <German Huber III - Last Filed: 11/03/16 14:55> Vital Signs: Last Vital Signs Temp 100.3 F H 11/03/16 12:29 Pulse 83 11/03/16 09:41 Resp 20 11/03/16 09:41 BP 131/72 11/03/16 09:41 Pulse Ox 97 11/03/16 12:52 - Home Medications Home Medications: Ambulatory Orders Medication Instructions Recorded Aspirin [Ecotrin] 81 mg PO DAILY 10/27/16 Atorvastatin [Lipitor] 80 mg PO HS 10/27/16 Brimonidine Tartrate/Timolol 1 drop EACHEYE BID 10/27/16 [Combigan 0.2%-0.5% Eye Drops] Clopidogrel [Plavix] 75 mg PO DAILY 10/27/16 Cu/Se/Vit A/Vit C/Vit E/Zinc 1 tab PO DAILY 10/27/16 [Ocuvite] Gabapentin [Neurontin] 300 mg PO TID PRN 10/27/16 Insulin Detemir [Levemir] 80 unit SC HS 10/27/16 Insulin Lispro [humALOG] 4 - 10 unit SC TID 10/27/16 Losartan [Cozaar] 50 mg PO DAILY 10/27/16 MetFORMIN [glucoPHAGE] 1,000 mg PO BID 10/27/16 Multivitamin [Multi-Vitamin Daily] 1 tab PO DAILY 10/27/16 Omeprazole 40 mg PO DAILY 10/27/16 Travoprost [Travatan Z] 1 drop EACHEYE HS 10/27/16 hydroCHLOROthiazide [Microzide] 12.5 mg PO DAILY 10/27/16 Furosemide [Lasix] 20 mg PO QOTHERDAY #30 tab 10/31/16 [id number] Ethyl Esters 1 GM 1 gm PO DAILY sgl 10/31/16 [Lovaza] Vancomycin [Vancomycin Inj] 1.2 gm IVPB BID 28 Days #56 10/31/16 cefTRIAXone [Rocephin] 2 gm IVPB DAILY 28 Days #28 vial 10/31/16 Meloxicam [Mobic] 15 mg PO DAILY PRN 11/03/16 - Allergies Allergies/Adverse Reactions: Allergies Allergy/AdvReac Type Severity Reaction Status Date / Time oxycodone HCl [From Percocet] Allergy Intermediate ITCHING Verified 01/21/16 20: 08 cat scan oral contrast Allergy Intermediate RASH Uncoded 01/21/16 20:08 Review of Systems ROS Statement: Except As Marked, All Systems Reviewed And Found Negative Constitutional: Positive for: Fever, Chills, Weakness, Malaise. Negative for: Sweats Cardiovascular: Negative for: Chest Pain, Palpitations, Edema, Light Headedness Respiratory: Negative for: Cough, Shortness of Breath, Pleuritic Pain, Wheezing Gastrointestinal: Positive for: Nausea. Negative for: Vomiting, Abdominal Pain , Diarrhea Genitourinary Male: Negative for: Dysuria Skin: Positive for: Other (blister on edge of tape near PICC line site) Neurological: Negative for: Change in Speech, Confusion, Altered Mental Status, Headache <Allen Quiroz - Last Filed: 11/03/16 12:51> Physical Exam - Reviewed Nursing Documentation Reviewed: Yes Vital Signs Reviewed: Yes - Physical Exam Appears: Positive for: No Acute Distress Head Exam: Positive for: ATRAUMATIC, NORMAL INSPECTION, NORMOCEPHALIC Skin: Positive for: Normal Color, Warm, Dry Eye Exam: Positive for: Normal appearance Neck: Positive for: Normal, Painless ROM, Supple Cardiovascular/Chest: Positive for: Regular Rate, Rhythm, Chest Non Tender. Negative for: Bradycardia, Tachycardia Respiratory: Positive for: Normal Breath Sounds. Negative for: Accessory Muscle Use, Crackles, Rales, Rhonchi, Wheezing, Respiratory Distress Pulses-Carotid (L): 2+ Pulses-Carotid (R): 2+ Gastrointestinal/Abdominal: Positive for: Normal Exam, Bowel Sounds, Soft. Negative for: Tenderness Neurologic/Psych: Positive for: Alert, Oriented <Allen Quiroz - Last Filed: 11/03/16 12:51> - Laboratory Results Result Diagrams: 11/03/16 10:35 11/03/16 10:35 - ECG O2 Sat by Pulse Oximetry: 97 <Allen Quiroz - Last Filed: 11/03/16 12:51> - Laboratory Results Result Diagrams: 11/03/16 10:35 11/03/16 10:35 <German Huber III - Last Filed: 11/03/16 14:55> Medical Decision Making <Allen Quiroz - Last Filed: 11/03/16 12:51> <German Huber III - Last Filed: 11/03/16 14:55> Medical Decision Makin66 y/o man w/ pmh of CVA, TIA, DM2, HTN, HLD presents to the ED with fever CBC w/ diff: 6.7>11.6/34.7<261 CMP: 134/3.9, 96/27, 17/1.0, glucose 167, AST 53, ALT 42, alk phos 106 VBG: pH 7.44, pCO2 43, HCO3 27.5, O2 sat 62.2, K+ 3.7, lactate 1.4 blood culture: urine culture: UA: IVF NS bolus seen by podiatry, left foot exam WNL, no cellulitis, no signs of infection Dispo: care transferred to Dr. Huber (Allen Quiroz) attending note- 66yo male recently admitted for cellulitis, now represents w low grade fevers despite IV antibiotics at home. Per podiatry, foot improving unlikely to be source fever. PICC site suspicious for possible infection given blistering. D/w Dr Roy, ID, rec obs and possible removal PICC. patient received outpatient antibiotics Vanco/Rocephin this morning. Blood cultures obtained. Accession No. : [id number] Patient Name / ID : LOREN GUTIÉRREZ / [id number] Exam Date : 11/03/2016 13:00:45 ( Approved ) Study Comment : Sex / Age : M / 66Y Creator : Luis Manuel Arevalo MD Dictator : Luis Manuel Arevalo MD Van Owner Operator : Electric Transfer Operator : Luis Manuel Arevalo MD Approver2 : Report Date : 11/03/2016 13:23:59 My Comment : HISTORY: fever COMPARISON: Comparison made with prior study 16. TECHNIQUE: Chest PA and lateral FINDINGS: In situ PICC line with tip in the SVC. LUNGS: Suspect minor bibasilar atelectasis. PLEURA: No significant pleural effusion identified. No pneumothorax apparent. CARDIOVASCULAR: Normal. OSSEOUS STRUCTURES: Mild multilevel degenerative spondylosis of thoracic spine VISUALIZED UPPER ABDOMEN: Normal. OTHER FINDINGS: None. IMPRESSION: Mild bibasilar atelectasis. Left-sided PICC line as described (German Huber III) Disposition Discussed With DrKristina: German Huber III - Disposition Disposition: Transfer of Care Disposition Time: 12:51 Patient Signed Over To: German Huber III <Allen Quiroz - Last Filed: 11/03/16 12:51> - Patient ED Disposition Is Patient to be Admitted: Yes - Pt Status Changed To: Hospital Disposition Of: Observation - POA Present On Arrival: None <German Huber III - Last Filed: 11/03/16 14:55> - Clinical Impression Clinical Impression: Fever - Disposition Condition: STABLE Forms: [facility] (Montenegrin) History & Physical - History of Present Illness Reason for Visit (Default from Admissions): FEVER - Infectious Disease Hx of Infectious Diseases: MRSA <Allen Quiroz - Last Filed: 11/03/16 12:51> <German Huber III - Last Filed: 11/03/16 14:55> - History of Present Illness History of Present Illness (Free Text): CC: 66 y/o man w/ pmh of CVA, TIA, DM2, HTN, HLD presents to the ED with fever. The patient was recently discharged from the hospital for diabetic foot cellulitis 2 days and had PICC line placed on left arm while admitted to receive IV vancomycin and rocephin for the next 4 weeks at home by a visiting nurse. The patient started receiving home IV antinbiotics yesterday. The patient reports that yesterday afternoon he started feeling warm and temperature was checked orally and was 100.3 F. He took tylenol and the fever resolved. This morning he checked his temperature again and was 101.3 F. His prompted him to go to ED. The patient also reports that he has sensitive skin nad the PICC line site is itchy and has a blister on the edge of the tape. The patient reports nausea this morning that has resolved and denies headaches , chest pain, SOB, cough, vomiting, diarrhea, dysuria, travel, and sick contact. The patient had a normal bowel movement last night. ROS: 12 points assessed and negative unless otherwise reported in HPI allergies: percocet, IV contrast PMH: CVA, TIA, DM2, HTN, HLD meds: see medication list PMD: [facility] PSH: left foot Charcot joint correction, laparascopic appendectomy SOC: denies smoking, alcohol, and drugs (Allen Quiroz)
[2016-11-03] MEDS ORDERED: Povidone Iodine Topical 10% Sol ONE ×2 (11:00→15:11)
[2016-11-03 11:06] LABS: VENOUS BLOOD GAS BASE EXCESS 4.5 mmol/L (0.0-2.0); VENOUS BLOOD GAS PCO2 43 mmHg (40-60); VENOUS BLOOD PH 7.44 (7.32-7.43)
[2016-11-03 11:09] LABS: BASO % 0.6 % (0.0-2.0); EOS % 0.3 % (0.0-4.0); HEMATOCRIT 34.7 % (35.0-51.0); LYMPH # 0.7 K/uL (1.0-4.3); LYMPH % 10.2 % (20.0-40.0); MEAN CELL VOLUME 84.3 fl (80.0-94.0); MEAN CORPUSCULAR HEMOGLOBIN 28.1 pg (27.0-31.0); MEAN CORPUSCULAR HGB CONC 33.4 g/dL (33.0-37.0); MEAN PLATELET VOLUME 8.3 fl (7.2-11.7); MONO # 0.5 K/uL (0.0-0.8); NEUT # 5.5 K/uL (1.8-7.0); NEUT % 81.9 % (50.0-75.0); RED CELL DISTRIBUTION WIDTH 13.6 % (11.5-14.5); WHITE BLOOD COUNT 6.7 K/uL (4.8-10.8)
[2016-11-03] MEDS: Sodium Chloride 0.9% 1,000 ML IV SCH ×2 (11:12→11:26)
[2016-11-03 11:24] LABS: ALB/GLOB RATIO 1.1 (1.0-2.1); ALKALINE PHOSPHATASE 106 U/L (38-126); ALT/SGPT 42 U/L (21-72); AST/SGOT 53 U/L (17-59); BILIRUBIN,TOTAL 0.5 mg/dl (0.2-1.3); BLOOD UREA NITROGEN 17 mg/dl (9-20); CALCIUM 8.8 mg/dL (8.4-10.2); CARBON DIOXIDE 27 mmol/L (22-30); CHLORIDE 96 mmol/L (98-107); GFR AFRICAN-AMERICAN > 60; GLUCOSE,RANDOM 167 mg/dL (75-110); POTASSIUM 3.9 MMOL/L (3.6-5.0); SODIUM 134 mmol/l (132-148); TOTAL PROTEIN 7.3 G/DL (6.3-8.2)
--- NOTE | 2016-11-03 11:34 | CP.PCM.CON ---
History of Present Illness - History of Present Illness History of Present Illness: Podiatry consult note for Dr. Santamaria: 66 y/o male with left foot 4th interspace ulcer and Charcot foot deformity seen at bedside in ED complaining of fever. Patient appears in NAD and denies of any pain to his left foot. Patient states that he was just discharged from the hospital 2 days ago. Patient states that he spiked a fever yesterday and this morning which led him to come to the ED. Patient states that he has a PICC line in and is receiving IV antibiotics. Patient denies of any pedal complains at this time. Patient states that he was suppose to follow up with Dr. Santamaria in the wound care center but he came in early because of the fever. Patient admits to no acute events once reached home from the hospital. Patient denies any N/V/ SOB today. Review of Systems - Constitutional Constitutional: As Per HPI Past Patient History - Infectious Disease Hx of Infectious Diseases: MRSA - Past Medical History & Family History Past Medical History?: Yes - Past Social History Smoking Status: Former Smoker - CARDIAC Hx Congestive Heart Failure: No Hx Hypercholesterolemia: Yes Hx Hypertension: Yes - PULMONARY Hx Chronic Obstructive Pulmonary Disease (COPD): No - NEUROLOGICAL Hx Transient Ischemic Attacks (TIA): Yes - HEENT Hx HEENT Problems: Yes Hx Cataracts: Yes Hx Glaucoma: Yes - RENAL Hx Chronic Kidney Disease: No - ENDOCRINE/METABOLIC Hx Hypothyroidism: No - HEMATOLOGICAL/ONCOLOGICAL Hx Human Immunodeficiency Virus (HIV): No - INTEGUMENTARY Hx Dermatological Problems: No - MUSCULOSKELETAL/RHEUMATOLOGICAL Hx Arthritis: No Hx Rheumatoid Arthritis: No - GASTROINTESTINAL Hx Gastritis: Yes - GENITOURINARY/GYNECOLOGICAL Hx Genitourinary Disorders: No - PSYCHIATRIC Hx Anxiety: Yes Hx Depression: Yes - SURGICAL HISTORY Hx Appendectomy: Yes (05/30/10) Hx Coronary Stent: Yes (PERIPHERAL ANGIOGRAM STENT IMPLANTED 08/12/2012) - ANESTHESIA Hx Anesthesia: Yes Hx Anesthesia Reactions: No Hx Malignant Hyperthermia: No Meds Allergies/Adverse Reactions: Allergies Allergy/AdvReac Type Severity Reaction Status Date / Time oxycodone HCl [From Percocet] Allergy Intermediate ITCHING Verified 01/21/16 20: 08 cat scan oral contrast Allergy Intermediate RASH Uncoded 01/21/16 20:08 - Medications Medications: Current Medications Sodium Chloride (Sodium Chloride 0.9%) 1,000 mls @ 999 mls/hr IV .Q1H1M INDIRA Stop: 11/03/16 12:00 Last Admin: 11/03/16 11:26 Dose: Not Given Physical Exam - Constitutional Appears: Well, Non-toxic, No Acute Distress - Extremities Exam Additional comments: Vasc: DP/PT 2/4 B/L. Temperature gradient warm to cool on R, warm to warm on L. CFT < 3 sec to all digits. +2 pitting edema noted to left leg extending distally to dorsum of L foot - Swelling appears to be resolving from yesterday, skin tension line noted on the dorsolateral aspect of the left foot Derm: 0.8cm x 0.6cm x 0.2cm circular ulceration noted to medial aspect of L 5th digit in 4th interspace. Granular tissue noted to wound base with venkatesh-wound macerated sloughing skin. no malodor noted. No active drainage. no purulent drainage No tunneling or undermining. Wound borders are macerated. minimal Erythema surrounding 5th digit Neuro: Protective sensation grossly intact Ortho: No tenderness to palpation of L foot 5th digit - Neurological Exam Neurological exam: Alert, Oriented x3 - Psychiatric Exam Psychiatric exam: Normal Affect, Normal Mood Results - Vital Signs Recent Vital Signs: Last Vital Signs Temp 99.3 F 11/03/16 09:41 Pulse 83 11/03/16 09:41 Resp 20 11/03/16 09:41 BP 131/72 11/03/16 09:41 Pulse Ox 97 11/03/16 11:29 - Labs Result Diagrams: 11/03/16 10:35 Labs: Laboratory Results - last 24 hr 11/03/16 11/03/16 10:20 10:35 WBC 6.7 RBC 4.12 L Hgb 11.6 L Hct 34.7 L MCV 84.3 MCH 28.1 MCHC 33.4 RDW 13.6 Plt Count 261 MPV 8.3 Neut % (Auto) 81.9 H Lymph % (Auto) 10.2 L [place] % (Auto) 7.0 Eos % (Auto) 0.3 Baso % (Auto) 0.6 Neut # 5.5 Lymph # 0.7 L [place] # 0.5 Eos # 0.0 Baso # 0.0 pO2 28 L VBG pH 7.44 H VBG pCO2 43 VBG HCO3 27.5 VBG Total CO2 30.5 H VBG O2 Sat (Calc) 62.2 VBG Base Excess 4.5 H VBG Potassium 3.7 A-a O2 Difference 68.0 Sodium 131.0 L Chloride 96.0 L Glucose 168 H Lactate 1.4 FiO2 21.0 Crit Value Called To Davey kohli Crit Value Called By 15 Crit Value Read Back Y Blood Gas Notified Time 1105 Venous Blood Potassium 3.7 Assessment & Plan - Assessment and Plan (Free Text) Assessment: 66 y/o male with left foot ulcer and Charcot deformity secondary to diabetes Plan: Pt seen and evaluated at bedside Discussed plan with attending Dr. Santamaria Chart, labs and vitals reviewed- afebrile, WBC 6.7 as of 11/29 Wound cx final- Citrobacter, Enterococcus Faecalis (sensitive to Vancomycin and Zosyn) Betadine and DSD applied to L foot ulcer Cont IV abx through PICC - Vanco, Zosyn - Patient to complete total of 4 weeks of IV abx with a PICC line as per Dr. Roy Patient is stable from podiatry standpoint Patient to follow up in the wound care center with Dr. Santamaria Thank you for the podiatry consult
--- NOTE | 2016-11-03 13:25 | RAD ---
HISTORY: fever COMPARISON: Comparison made with prior study 16. TECHNIQUE: Chest PA and lateral FINDINGS: In situ PICC line with tip in the SVC. LUNGS: Suspect minor bibasilar atelectasis. PLEURA: No significant pleural effusion identified. No pneumothorax apparent. CARDIOVASCULAR: Normal. OSSEOUS STRUCTURES: Mild multilevel degenerative spondylosis of thoracic spine VISUALIZED UPPER ABDOMEN: Normal. OTHER FINDINGS: None. IMPRESSION: Mild bibasilar atelectasis. Left-sided PICC line as described
[2016-11-03 13:53] LABS: URINE BILIRUBIN NEGATIVE (NEGATIVE); URINE BLOOD NEGATIVE (NEGATIVE); URINE COLOR YELLOW (YELLOW); URINE GLUCOSE (UA) NEG (Normal); URINE KETONE NEGATIVE (NEGATIVE); URINE LEUKOCYTE ESTERASE NEG Leu/uL (Negative); URINE PROTEIN 100 mg/dL (NEGATIVE); URINE UROBILINOGEN 0.2-1.0 mg/dL (0.2-1.0)
[2016-11-03 14:33] LABS: RBC URINE 4 /hpf (0-3); WBC URINE 2 /hpf (0-5)
[2016-11-03 14:34] LABS: URINE BACTERIA MOD (<OCC)
--- NOTE | 2016-11-03 15:40 | US ---
Left upper extremity ultrasound Indication: PICC/fever Technique: Duplex ultrasound evaluation of the left upper extremity Comparison: None available Findings: Left PICC present. Evidence of occlusive thrombus within a short segment of the left cephalic vein near the antecubital fossa. The remainder of the visualized vessels including left axillary, brachial, and basilic veins appear patent without thrombus. Normal flow is demonstrated in the left subclavian and internal jugular vein. Impression: Left PICC. Evidence of occlusive thrombus involving short segment of the left cephalic vein near the antecubital fossa.
--- NOTE | 2016-11-03 17:12 | CP.PCM.HP ---
History of Present Illness - History of Present Illness History of Present Illness: 66 y/o M with a PMHx CVA, TIA, DM, HTN, HLD, PVD admitted for fever s/p PICC line for left foot diabetic ulcer. Tmax 101.5. IV abx x4 weeks per ID as follows : Vancomycin 1200 mg QD and Ceftriaxone 2 gm daily. Denies headache, CP, SOB, abdominal pain or rash. wound cx shows Citrobacter Diversus and Enterrococcus Faecalis. 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 Allergies: Oral contrast and Percocet PMHx: DM, HTN, HLD, PVD, CVA and MRSA right foot infection PSHx: Left foot Sx 08/2014; Left foot screw removal 04/02/15. SHx: No tobacco (quit 35 years ago), no EtOH or recreational drugs. Medications: checked in [facility] ED Course: CBC, CMP CXR US ID c/x podiatry c/s Present on Admission - Present on Admission Any Indicators Present on Admission: Yes History of Uncontrolled Diabetes: Yes Decubitus Ulcer Present: Yes (diabetic foot ulcer) Review of Systems - Review of Systems All systems: reviewed and no additional remarkable complaints except - Constitutional Constitutional: Fever Past Patient History - Infectious Disease Hx of Infectious Diseases: MRSA - Past Medical History & Family History Past Medical History?: Yes - Past Social History Smoking Status: Former Smoker - CARDIAC Hx Congestive Heart Failure: No Hx Hypercholesterolemia: Yes Hx Hypertension: Yes - PULMONARY Hx Chronic Obstructive Pulmonary Disease (COPD): No - NEUROLOGICAL Hx Transient Ischemic Attacks (TIA): Yes - HEENT Hx HEENT Problems: Yes Hx Cataracts: Yes Hx Glaucoma: Yes - RENAL Hx Chronic Kidney Disease: No - ENDOCRINE/METABOLIC Hx Hypothyroidism: No - HEMATOLOGICAL/ONCOLOGICAL Hx Human Immunodeficiency Virus (HIV): No - INTEGUMENTARY Hx Dermatological Problems: No - MUSCULOSKELETAL/RHEUMATOLOGICAL Hx Arthritis: No Hx Rheumatoid Arthritis: No - GASTROINTESTINAL Hx Gastritis: Yes - GENITOURINARY/GYNECOLOGICAL Hx Genitourinary Disorders: No - PSYCHIATRIC Hx Anxiety: Yes Hx Depression: Yes - SURGICAL HISTORY Hx Appendectomy: Yes (05/30/10) Hx Coronary Stent: Yes (PERIPHERAL ANGIOGRAM STENT IMPLANTED 08/12/2012) - ANESTHESIA Hx Anesthesia: Yes Hx Anesthesia Reactions: No Hx Malignant Hyperthermia: No Meds Allergies/Adverse Reactions: Allergies Allergy/AdvReac Type Severity Reaction Status Date / Time oxycodone HCl [From Percocet] Allergy Intermediate ITCHING Verified 01/21/16 20: 08 cat scan oral contrast Allergy Intermediate RASH Uncoded 01/21/16 20:08 Physical Exam - Constitutional Appears: Non-toxic, No Acute Distress - Head Exam Head Exam: ATRAUMATIC, NORMAL INSPECTION - Eye Exam Eye Exam: Normal appearance - ENT Exam ENT Exam: Mucous Membranes Moist - Neck Exam Neck exam: Positive for: Full Rom, Normal Inspection - Respiratory Exam Additional comments: transmitted lung sounds - Cardiovascular Exam Cardiovascular Exam: REGULAR RHYTHM - GI/Abdominal Exam GI & Abdominal Exam: Normal Bowel Sounds, Soft - Extremities Exam Extremities exam: Positive for: pedal edema Additional comments: warm left foot dressing C/D/I - Back Exam Back exam: NORMAL INSPECTION - Neurological Exam Neurological exam: Alert, Oriented x3 - Skin Skin Exam: Dry, Warm Results - Vital Signs Recent Vital Signs: Last Vital Signs Temp 100.2 F H 11/03/16 16:49 Pulse 93 H 11/03/16 16:49 Resp 18 11/03/16 16:49 BP 138/74 11/03/16 16:49 Pulse Ox 97 11/03/16 16:49 - Labs Result Diagrams: 11/03/16 10:35 11/03/16 10:35 Labs: Laboratory Results - last 24 hr 11/03/16 11/03/16 11/03/16 10:20 10:35 10:35 WBC 6.7 RBC 4.12 L Hgb 11.6 L Hct 34.7 L MCV 84.3 MCH 28.1 MCHC 33.4 RDW 13.6 Plt Count 261 MPV 8.3 Neut % (Auto) 81.9 H Lymph % (Auto) 10.2 L [place] % (Auto) 7.0 Eos % (Auto) 0.3 Baso % (Auto) 0.6 Neut # 5.5 Lymph # 0.7 L [place] # 0.5 Eos # 0.0 Baso # 0.0 pO2 28 L VBG pH 7.44 H VBG pCO2 43 VBG HCO3 27.5 VBG Total CO2 30.5 H VBG O2 Sat (Calc) 62.2 VBG Base Excess 4.5 H VBG Potassium 3.7 A-a O2 Difference 68.0 Sodium 131.0 L 134 Chloride 96.0 L 96 L Glucose 168 H Lactate 1.4 FiO2 21.0 Crit Value Called To Davey kohli Crit Value Called By 15 Crit Value Read Back Y Blood Gas Notified Time 1105 Potassium 3.9 Carbon Dioxide 27 Anion Gap 15 BUN 17 Creatinine 1.0 Est GFR ( Amer) > 60 Est GFR (Non-Af Amer) > 60 Random Glucose 167 H Calcium 8.8 Total Bilirubin 0.5 AST 53 ALT 42 Alkaline Phosphatase 106 Total Protein 7.3 Albumin 3.8 Globulin 3.5 Albumin/Globulin Ratio 1.1 Venous Blood Potassium 3.7 Urine Color Urine Clarity Urine pH Ur Specific [place] Urine Protein Urine Glucose (UA) Urine Ketones Urine Blood Urine Nitrate Urine Bilirubin Urine Urobilinogen Ur Leukocyte Esterase Urine RBC (Auto) Urine Microscopic WBC Ur Squamous Epith Cells Urine Bacteria 11/03/16 13:00 WBC RBC Hgb Hct MCV MCH MCHC RDW Plt Count MPV Neut % (Auto) Lymph % (Auto) [place] % (Auto) Eos % (Auto) Baso % (Auto) Neut # Lymph # [place] # Eos # Baso # pO2 VBG pH VBG pCO2 VBG HCO3 VBG Total CO2 VBG O2 Sat (Calc) VBG Base Excess VBG Potassium A-a O2 Difference Sodium Chloride Glucose Lactate FiO2 Crit Value Called To Crit Value Called By Crit Value Read Back Blood Gas Notified Time Potassium Carbon Dioxide Anion Gap BUN Creatinine Est GFR ( Amer) Est GFR (Non-Af Amer) Random Glucose Calcium Total Bilirubin AST ALT Alkaline Phosphatase Total Protein Albumin Globulin Albumin/Globulin Ratio Venous Blood Potassium Urine Color Yellow Urine Clarity Clear Urine pH 6.0 Ur Specific [place] 1.016 Urine Protein 100 Urine Glucose (UA) Neg Urine Ketones Negative Urine Blood Negative Urine Nitrate Negative Urine Bilirubin Negative Urine Urobilinogen 0.2-1.0 Ur Leukocyte Esterase Neg Urine RBC (Auto) 4 H Urine Microscopic WBC 2 Ur Squamous Epith Cells 3 Urine Bacteria Mod H Assessment & Plan - Assessment and Plan (Free Text) Assessment: Assessment: 66 y/o M with a PMHx of DM, HTN, HLD, PVD, CVA and MRSA right foot infection admitted for fever s/p PICC for Left foot diabetic ulcer Plan: 1. Left foot ulcer - Podiatry on board. - IV Zosyn IVPB Q12H - Vancomycin 1200mg IVPB Q12 - Wound culture pending - Blood culture pending - Infectious Disease -PICC in place 2. Diabetes Mellitus complicated w/ Neuropathy - Gabapentin 300 mg TID - Metformin 1000mg BID held - Humalog 100unit/mL, held - Levemir 100unit/mL, 45u AMHS - Atorvastatin 80mg PO HS - SSI, accuchecks 3. HTN - Losartan 50mg PO daily - HCTZ 12.5mg PO daily -lasix 20mg qod 4. Hx of CVA - ASA 81 mg daily - Plavix 75mg PO daily - Travaprost ophthalmic solution. - Combigan 0.2-0.5% 5. DVT Prophylaxis -lovenox
[2016-11-03] MEDS ORDERED: Dextrose 50% SYRINGE Inj (50 ml) IV PRN (17:13)
[2016-11-03] MEDS ORDERED: Glucagon Recombinant 1 mg Inj IM PRN (17:13)
--- NOTE | 2016-11-03 17:51 | CP.PCM.CON ---
History of Present Illness - History of Present Illness History of Present Illness: Infectious Disease Consult Note- asked to see this patient at the request of for fever HPI- Reyna is known to me from his recent admission here for left foot cellulitis. Pt. is a 66 year old male with pmh of DMII, HTN, charcot foot s/p multiple previous foot surgeries with hardware in place in both feet who was admitted last week for left foot cellulitis which was secondary to left fourth toe interspace open wound and he was initiated on IV antibiotics and responded well to them and had picc line placed and was advised to receive total of 4 weeks of IV vanco and ceftriaxone for the left foot ulcer/cellulitis who now presents to ED today with c/o fever and also he states he has cough and also as per his she noticed he feels weak and also has redness on both lower legs. also pt. was noted to have blisters along the picc line but no pain or redness on the skin around the picc site. Review of Systems - Review of Systems Review of Systems: ROS- + fever and chills, + cough, denies any sob, denies any FISH, denies any chest pain, denies any nausea or vomiting, denies any diarrhea, states had one epsiode of dsyurea earlier today, he denies any pain along the left arm picc line site but has developed a blister along the tape site of the dressing Past Patient History - Infectious Disease Hx of Infectious Diseases: MRSA - Past Medical History & Family History Past Medical History?: Yes - Past Social History Smoking Status: Former Smoker - CARDIAC Hx Congestive Heart Failure: No Hx Hypercholesterolemia: Yes Hx Hypertension: Yes - PULMONARY Hx Chronic Obstructive Pulmonary Disease (COPD): No - NEUROLOGICAL Hx Transient Ischemic Attacks (TIA): Yes - HEENT Hx HEENT Problems: Yes Hx Cataracts: Yes Hx Glaucoma: Yes - RENAL Hx Chronic Kidney Disease: No - ENDOCRINE/METABOLIC Hx Diabetes Mellitus Type 2: Yes Hx Hypothyroidism: No - HEMATOLOGICAL/ONCOLOGICAL Hx Blood Disorders: No - INTEGUMENTARY Hx Dermatological Problems: No - MUSCULOSKELETAL/RHEUMATOLOGICAL Hx Arthritis: No Hx Rheumatoid Arthritis: No - GASTROINTESTINAL Hx Gastritis: Yes - GENITOURINARY/GYNECOLOGICAL Hx Genitourinary Disorders: No - PSYCHIATRIC Hx Anxiety: Yes Hx Depression: Yes - SURGICAL HISTORY Hx Appendectomy: Yes (05/30/10) Hx Coronary Stent: Yes (PERIPHERAL ANGIOGRAM STENT IMPLANTED 08/12/2012) - ANESTHESIA Hx Anesthesia: Yes Hx Anesthesia Reactions: No Hx Malignant Hyperthermia: No Meds Allergies/Adverse Reactions: Allergies Allergy/AdvReac Type Severity Reaction Status Date / Time oxycodone HCl [From Percocet] Allergy Intermediate ITCHING Verified 01/21/16 20: 08 cat scan oral contrast Allergy Intermediate RASH Uncoded 01/21/16 20:08 - Medications Medications: Current Medications Aspirin (Ecotrin) 81 mg PO DAILY [facility] Ceftriaxone Sodium (Rocephin) 2 gm IVPB DAILY [facility] Clopidogrel Bisulfate (Plavix) 75 mg PO DAILY [facility] Dextrose (Dextrose 50% Inj) 0 ml IV STAT PRN; Protocol PRN Reason: Hyglycemia Protocol Dextrose (Glutose 15) 0 gm PO ONCE PRN; Protocol PRN Reason: Hypoglycemia Protocol Enoxaparin Sodium (Lovenox) 40 mg SC DAILY [facility] PRN Reason: Protocol Furosemide (Lasix) 20 mg PO QOTHERDAY [facility] Gabapentin (Neurontin) 300 mg PO TID PRN PRN Reason: Neuropathic pain Glucagon (Glucagen Diagnostic Kit) 0 mg IM STAT PRN; Protocol PRN Reason: Hypoglycemia Protocol Home Med (Brimonidine Tartrate/Timolol [Combigan 0.2%-0.5% Eye Drops]) 1 drop EACHEYE BID [facility] Home Med (Travoprost [Travatan Z]) 1 drop EACHEYE HS [facility] Hydrochlorothiazide (Microzide) 12.5 mg PO DAILY [facility] Insulin Detemir (Levemir) 45 units SC AMHS [facility] Insulin Human Regular (Humulin R) 0 units SC ACHS [facility] PRN Reason: Protocol Losartan Potassium (Cozaar) 50 mg PO DAILY [facility] Vancomycin HCl (Vancomycin Inj) 1.2 gm IVPB BID [facility] Physical Exam - Constitutional Appears: Chronically Ill - Head Exam Head Exam: ATRAUMATIC - Eye Exam Eye Exam: EOMI - ENT Exam ENT Exam: Normal Oropharynx - Neck Exam Neck exam: Positive for: Full Rom - Respiratory Exam Respiratory Exam: NORMAL BREATHING PATTERN Additional comments: exp wheezing at the left side no crackles - Cardiovascular Exam Cardiovascular Exam: RRR, +S1, +S2 - GI/Abdominal Exam GI & Abdominal Exam: Normal Bowel Sounds, Soft Additional comments: NT, ND - Extremities Exam Additional comments: b/l LE with erythema and warmth totuch from ankle to about mid calf region left foot with left fourth interspace small opening with malodor and scant serosanguinous discharge and edema surrounding region but less than last admission Left arm picc line site blister along the adhesive tape line but no swelling and no erythema and no tenderness to touch - Neurological Exam Neurological exam: Alert, Oriented x3 Results - Vital Signs Recent Vital Signs: Last Vital Signs Temp 100.2 F H 11/03/16 16:49 Pulse 93 H 11/03/16 16:49 Resp 18 11/03/16 16:49 BP 138/74 11/03/16 16:49 Pulse Ox 97 11/03/16 16:49 - Labs Result Diagrams: 11/03/16 10:35 11/03/16 10:35 Labs: Laboratory Results - last 24 hr 11/03/16 11/03/16 11/03/16 10:20 10:35 10:35 WBC 6.7 RBC 4.12 L Hgb 11.6 L Hct 34.7 L MCV 84.3 MCH 28.1 MCHC 33.4 RDW 13.6 Plt Count 261 MPV 8.3 Neut % (Auto) 81.9 H Lymph % (Auto) 10.2 L [place] % (Auto) 7.0 Eos % (Auto) 0.3 Baso % (Auto) 0.6 Neut # 5.5 Lymph # 0.7 L [place] # 0.5 Eos # 0.0 Baso # 0.0 pO2 28 L VBG pH 7.44 H VBG pCO2 43 VBG HCO3 27.5 VBG Total CO2 30.5 H VBG O2 Sat (Calc) 62.2 VBG Base Excess 4.5 H VBG Potassium 3.7 A-a O2 Difference 68.0 Sodium 131.0 L 134 Chloride 96.0 L 96 L Glucose 168 H Lactate 1.4 FiO2 21.0 Crit Value Called To Davey kohli Crit Value Called By 15 Crit Value Read Back Y Blood Gas Notified Time 1105 Potassium 3.9 Carbon Dioxide 27 Anion Gap 15 BUN 17 Creatinine 1.0 Est GFR ( Amer) > 60 Est GFR (Non-Af Amer) > 60 Random Glucose 167 H Calcium 8.8 Total Bilirubin 0.5 AST 53 ALT 42 Alkaline Phosphatase 106 Total Protein 7.3 Albumin 3.8 Globulin 3.5 Albumin/Globulin Ratio 1.1 Venous Blood Potassium 3.7 Urine Color Urine Clarity Urine pH Ur Specific [place] Urine Protein Urine Glucose (UA) Urine Ketones Urine Blood Urine Nitrate Urine Bilirubin Urine Urobilinogen Ur Leukocyte Esterase Urine RBC (Auto) Urine Microscopic WBC Ur Squamous Epith Cells Urine Bacteria 11/03/16 13:00 WBC RBC Hgb Hct MCV MCH MCHC RDW Plt Count MPV Neut % (Auto) Lymph % (Auto) [place] % (Auto) Eos % (Auto) Baso % (Auto) Neut # Lymph # [place] # Eos # Baso # pO2 VBG pH VBG pCO2 VBG HCO3 VBG Total CO2 VBG O2 Sat (Calc) VBG Base Excess VBG Potassium A-a O2 Difference Sodium Chloride Glucose Lactate FiO2 Crit Value Called To Crit Value Called By Crit Value Read Back Blood Gas Notified Time Potassium Carbon Dioxide Anion Gap BUN Creatinine Est GFR ( Amer) Est GFR (Non-Af Amer) Random Glucose Calcium Total Bilirubin AST ALT Alkaline Phosphatase Total Protein Albumin Globulin Albumin/Globulin Ratio Venous Blood Potassium Urine Color Yellow Urine Clarity Clear Urine pH 6.0 Ur Specific [place] 1.016 Urine Protein 100 Urine Glucose (UA) Neg Urine Ketones Negative Urine Blood Negative Urine Nitrate Negative Urine Bilirubin Negative Urine Urobilinogen 0.2-1.0 Ur Leukocyte Esterase Neg Urine RBC (Auto) 4 H Urine Microscopic WBC 2 Ur Squamous Epith Cells 3 Urine Bacteria Mod H Laboratory Results - last 72 hr 11/03/16 11/03/16 11/03/16 10:20 10:35 10:35 WBC 6.7 RBC 4.12 L Hgb 11.6 L Hct 34.7 L MCV 84.3 MCH 28.1 MCHC 33.4 RDW 13.6 Plt Count 261 MPV 8.3 Neut % (Auto) 81.9 H Lymph % (Auto) 10.2 L [place] % (Auto) 7.0 Eos % (Auto) 0.3 Baso % (Auto) 0.6 Neut # 5.5 Lymph # 0.7 L [place] # 0.5 Eos # 0.0 Baso # 0.0 pO2 28 L VBG pH 7.44 H VBG pCO2 43 VBG HCO3 27.5 VBG Total CO2 30.5 H VBG O2 Sat (Calc) 62.2 VBG Base Excess 4.5 H VBG Potassium 3.7 A-a O2 Difference 68.0 Sodium 131.0 L 134 Chloride 96.0 L 96 L Glucose 168 H Lactate 1.4 FiO2 21.0 Crit Value Called To Davey kohli Crit Value Called By 15 Crit Value Read Back Y Blood Gas Notified Time 1105 Potassium 3.9 Carbon Dioxide 27 Anion Gap 15 BUN 17 Creatinine 1.0 Est GFR ( Amer) > 60 Est GFR (Non-Af Amer) > 60 Random Glucose 167 H Calcium 8.8 Total Bilirubin 0.5 AST 53 ALT 42 Alkaline Phosphatase 106 Total Protein 7.3 Albumin 3.8 Globulin 3.5 Albumin/Globulin Ratio 1.1 Venous Blood Potassium 3.7 Urine Color Urine Clarity Urine pH Ur Specific [place] Urine Protein Urine Glucose (UA) Urine Ketones Urine Blood Urine Nitrate Urine Bilirubin Urine Urobilinogen Ur Leukocyte Esterase Urine RBC (Auto) Urine Microscopic WBC Ur Squamous Epith Cells Urine Bacteria 11/03/16 13:00 WBC RBC Hgb Hct MCV MCH MCHC RDW Plt Count MPV Neut % (Auto) Lymph % (Auto) [place] % (Auto) Eos % (Auto) Baso % (Auto) Neut # Lymph # [place] # Eos # Baso # pO2 VBG pH VBG pCO2 VBG HCO3 VBG Total CO2 VBG O2 Sat (Calc) VBG Base Excess VBG Potassium A-a O2 Difference Sodium Chloride Glucose Lactate FiO2 Crit Value Called To Crit Value Called By Crit Value Read Back Blood Gas Notified Time Potassium Carbon Dioxide Anion Gap BUN Creatinine Est GFR ( Amer) Est GFR (Non-Af Amer) Random Glucose Calcium Total Bilirubin AST ALT Alkaline Phosphatase Total Protein Albumin Globulin Albumin/Globulin Ratio Venous Blood Potassium Urine Color Yellow Urine Clarity Clear Urine pH 6.0 Ur Specific [place] 1.016 Urine Protein 100 Urine Glucose (UA) Neg Urine Ketones Negative Urine Blood Negative Urine Nitrate Negative Urine Bilirubin Negative Urine Urobilinogen 0.2-1.0 Ur Leukocyte Esterase Neg Urine RBC (Auto) 4 H Urine Microscopic WBC 2 Ur Squamous Epith Cells 3 Urine Bacteria Mod H Microbiology 10/27/16 12:30 Blood Blood Culture - Final 10/27/16 12:30 Blood Gram Stain - Final NO GROWTH AFTER 5 DAYS TEST NOT PERFORMED 10/27/16 12:00 Toe Gram Stain - Final 10/27/16 12:00 Toe Wound Culture - Final Citrobacter Diversus Enterococcus Faecalis 10/27/16 12:00 Blood Blood Culture - Final 10/27/16 12:00 Blood Gram Stain - Final NO GROWTH AFTER 5 DAYS TEST NOT PERFORMED Accession No. : [id number] Patient Name / ID : LOREN GUTIÉRREZ / [id number] Exam Date : 11/03/2016 13:00:45 ( Approved ) Study Comment : Sex / Age : M / 66Y Creator : Luis Manuel Arevalo MD Dictator : Luis Manuel Arevalo MD Sourcing Analyst : Stage Technician : Luis Manuel Arevalo MD Approver2 : Report Date : 11/03/2016 13:23:59 My Comment : HISTORY: fever COMPARISON: Comparison made with prior study 16. TECHNIQUE: Chest PA and lateral FINDINGS: In situ PICC line with tip in the SVC. LUNGS: Suspect minor bibasilar atelectasis. PLEURA: No significant pleural effusion identified. No pneumothorax apparent. CARDIOVASCULAR: Normal. OSSEOUS STRUCTURES: Mild multilevel degenerative spondylosis of thoracic spine VISUALIZED UPPER ABDOMEN: Normal. OTHER FINDINGS: None. IMPRESSION: Mild bibasilar atelectasis. Left-sided PICC line as described Accession No. : [id number] Patient Name / ID : LOREN GUTIÉRREZ / [id number] Exam Date : 11/03/2016 13:43:37 ( Approved ) Study Comment : Sex / Age : [age] / 66Y Creator : Olive Reina MD Dictator : Olive Reina MD Sourcing Analyst : Stage Technician : lOive Reina MD Approver2 : Report Date : 11/03/2016 15:38:40 My Comment : Left upper extremity ultrasound Indication: PICC/fever Technique: Duplex ultrasound evaluation of the left upper extremity Comparison: None available Findings: Left PICC present. Evidence of occlusive thrombus within a short segment of the left cephalic vein near the antecubital fossa. The remainder of the visualized vessels including left axillary, brachial, and basilic veins appear patent without thrombus. Normal flow is demonstrated in the left subclavian and internal jugular vein. Impression: Left PICC. Evidence of occlusive thrombus involving short segment of the left cephalic vein near the antecubital fossa. Assessment & Plan (1) Fever Status: Acute (2) Cellulitis and abscess of foot Status: Acute (3) Thrombus Status: Acute - Assessment and Plan (Free Text) Assessment: A/P- 66 year old amle with multiple medical conditions including DM II, HTN, CVA recently d/c for left foot cellulitis secondary to 4th toe interspace ulcer who is now back with fever . fever source could be multifactorial one etiology the short segment thrombus reported on the left arm US report second could be that there is underlying abscess vs OM of the feet in light of being febrike on 2 IV abx and sicne there is hardware in place that is possible. has some wheezing but cxr no evidence of any infiltrate . may need to get ruled out for PE. plan-- check blood cx x 2 and one from the picc line and one peripheral. check UA and urine cx. check ESR. d/c ceftriaxone and start pt. on IV zosyn. continue with IV vancomycin and keep trough <15. check either bone scan or CT r/o OM of the left foot . check B/L LE US r/o DVT as well. advise to speak with IR and see if the picc line should be removed since the thrombus is only reported Left PICC present. Evidence of occlusive thrombus within a short segment of the left cephalic vein near the antecubital fossa. The remainder of the visualized vessels including left axillary, brachial, and basilic veins appear patent without thrombus. Normal flow is demonstrated in the left subclavian and internal jugular vein. all above d/w patient and his and also discussed all above with podiatry resident.
[2016-11-03] MEDS ORDERED: Menthol/Methyl Salicylate Oinment TOP PRN (18:56)
[2016-11-03] MEDS: Piperacillin/Tazobact 3.375 GM in Sodium Chloride 0.9% 100 ML IVPB SCH (21:29)
[2016-11-03] MEDS: Insulin Detemir 100 Units/ml Inj SC SCH (21:31)
[2016-11-03] MEDS: Insulin Regular 100 units/ml SC SCH (21:31)
[2016-11-03] MEDS: guaiFENesin 600 mg ER Tab PO SCH (21:33)
[2016-11-03] MEDS: Patient's Own Med (Travoprost [Travatan Z] 1 DROP) EACHEYE SCH (23:24)
[2016-11-04] MEDS: Piperacillin/Tazobact 3.375 GM in Sodium Chloride 0.9% 100 ML IVPB SCH ×3 (01:47→16:26)
[2016-11-04 07:36] LABS: BASO % 0.4 % (0.0-2.0); HEMATOCRIT 30.2 % (35.0-51.0); LYMPH # 0.6 K/uL (1.0-4.3); LYMPH % 9.3 % (20.0-40.0); MEAN CELL VOLUME 84.2 fl (80.0-94.0); MEAN CORPUSCULAR HEMOGLOBIN 27.6 pg (27.0-31.0); MEAN CORPUSCULAR HGB CONC 32.8 g/dL (33.0-37.0); MEAN PLATELET VOLUME 8.7 fl (7.2-11.7); MONO # 0.4 K/uL (0.0-0.8); MONO % 6.5 % (0.0-10.0); NEUT # 5.3 K/uL (1.8-7.0); NEUT % 83.8 % (50.0-75.0); PLATELET COUNT 228 K/uL (130-400); RED CELL DISTRIBUTION WIDTH 13.5 % (11.5-14.5); WHITE BLOOD COUNT 6.3 K/uL (4.8-10.8)
[2016-11-04 07:52] LABS: BLOOD UREA NITROGEN 18 mg/dl (9-20); CALCIUM 8.4 mg/dL (8.4-10.2); CARBON DIOXIDE 25 mmol/L (22-30); CHLORIDE 96 mmol/L (98-107); GFR AFRICAN-AMERICAN > 60; GLUCOSE,RANDOM 156 mg/dL (75-110); POTASSIUM 3.6 MMOL/L (3.6-5.0); SODIUM 132 mmol/l (132-148)
[2016-11-04] MEDS ORDERED: Vancomycin 1 g Inj IVPB SCH (09:00)
[2016-11-04] MEDS ORDERED: cefTRIAXone 2 GM in Sodium Chloride 0.9% 100 ML IVPB SCH (09:00)
[2016-11-04] MEDS ORDERED: cefTRIAXone (Rocephin) 2 gm Inj IVPB SCH (09:00)
[2016-11-04] MEDS: Patient's Own Med (Brimonidine Tartrate/Timolol [Combigan 0.2%-0.5% Eye Drops] 1 DROP) EACHEYE SCH ×2 (10:15→16:33)
[2016-11-04] MEDS: Insulin Regular 100 units/ml SC SCH ×4 (10:16→21:56)
[2016-11-04] MEDS: guaiFENesin 600 mg ER Tab PO SCH ×2 (10:20→20:51)
[2016-11-04] MEDS: Enoxaparin 40 mg Syringe SC SCH (10:20)
--- NOTE | 2016-11-04 10:55 | CP.PCM.PN ---
Subjective - Date & Time of Evaluation Date of Evaluation: 11/04/16 Time of Evaluation: 12:00 - Subjective Subjective: ID Note- Pt. seen and examined today. pt. states he feels better and smiles. no chills today but has low grade fever still. Objective - Vital Signs/Intake and Output Vital Signs (last 24 hours): Temp Pulse Resp BP Pulse Ox 99.2 F 60 18 149/77 98 11/04/16 08:20 11/04/16 10:15 11/04/16 08:20 11/04/16 10:15 11/04/16 08:20 - Medications Medications: Current Medications Acetaminophen (Tylenol 325mg Tab) 650 mg PO Q4 PRN PRN Reason: Fever >100.4 F Last Admin: 11/04/16 01:52 Dose: 650 mg Albuterol/Ipratropium (Duoneb 3 Mg/0.5 Mg (3 Ml) Ud) 3 ml INH RQ6 PRN PRN Reason: Shortness of Breath Aspirin (Ecotrin) 81 mg PO DAILY [facility] Last Admin: 11/04/16 10:15 Dose: 81 mg Camphor/Menthol (Bengay) 1 applic TOP QID PRN PRN Reason: Other Clopidogrel Bisulfate (Plavix) 75 mg PO DAILY [facility] Last Admin: 11/04/16 10:20 Dose: 75 mg Dextrose (Dextrose 50% Inj) 0 ml IV STAT PRN; Protocol PRN Reason: Hyglycemia Protocol Dextrose (Glutose 15) 0 gm PO ONCE PRN; Protocol PRN Reason: Hypoglycemia Protocol Enoxaparin Sodium (Lovenox) 40 mg SC DAILY [facility] PRN Reason: Protocol Last Admin: 11/04/16 10:20 Dose: 40 mg Furosemide (Lasix) 20 mg PO QOTHERDAY [facility] Gabapentin (Neurontin) 300 mg PO TID PRN PRN Reason: Neuropathic pain Glucagon (Glucagen Diagnostic Kit) 0 mg IM STAT PRN; Protocol PRN Reason: Hypoglycemia Protocol Guaifenesin (Mucinex La) 600 mg PO Q12 [facility] Last Admin: 11/04/16 10:20 Dose: 600 mg Home Med (Brimonidine Tartrate/Timolol [Combigan 0.2%-0.5% Eye Drops]) 1 drop EACHEYE BID [facility] Last Admin: 11/04/16 10:15 Dose: 1 drop Home Med (Travoprost [Travatan Z]) 1 drop EACHEYE HS [facility] Last Admin: 11/03/16 23:24 Dose: 1 drop Hydrochlorothiazide (Microzide) 12.5 mg PO DAILY [facility] Last Admin: 11/04/16 10:20 Dose: 12.5 mg Vancomycin HCl 1.2 gm/ Sodium (Chloride) 250 mls @ 166.667 mls/hr IVPB BID@0900 ,2100 [facility] Piperacillin Sod/Tazobactam (Sod 3.375 gm/ Sodium Chloride) 100 mls @ 100 mls/ hr IVPB Q8 [facility] Last Admin: 11/04/16 10:21 Dose: 100 mls/hr Insulin Detemir (Levemir) 45 units SC AMHS [facility] Last Admin: 11/03/16 21:31 Dose: 45 units Insulin Human Regular (Humulin R) 0 units SC ACHS [facility] PRN Reason: Protocol Last Admin: 11/04/16 10:16 Dose: 1 units Losartan Potassium (Cozaar) 50 mg PO DAILY [facility] Last Admin: 11/04/16 10:15 Dose: 50 mg - Labs Labs: - Additional Findings Additional findings: - Constitutional Appears: Chronically Ill - Head Exam Head Exam: ATRAUMATIC - Eye Exam Eye Exam: EOMI - ENT Exam ENT Exam: Normal Oropharynx - Neck Exam Neck exam: Positive for: Full Rom - Respiratory Exam Respiratory Exam: NORMAL BREATHING PATTERN Additional comments: no wheezing. no crackles - Cardiovascular Exam Cardiovascular Exam: RRR, +S1, +S2 - GI/Abdominal Exam GI & Abdominal Exam: Normal Bowel Sounds, Soft Additional comments: NT, ND - Extremities Exam Additional comments: b/l LE with erythema and warmth to touch from ankle to about mid calf region but less erythema than yesterday. left foot with left fourth interspace small opening with malodor and scant serosanguinous discharge and edema surrounding region but less than last admission Left arm picc line site blister along the adhesive tape line but no swelling and no erythema and no tenderness to touch - Neurological Exam Neurological exam: Alert, Oriented x 3 Laboratory Results - last 72 hr 11/03/16 11/03/16 11/03/16 10:20 10:35 10:35 WBC 6.7 RBC 4.12 L Hgb 11.6 L Hct 34.7 L MCV 84.3 MCH 28.1 MCHC 33.4 RDW 13.6 Plt Count 261 MPV 8.3 Neut % (Auto) 81.9 H Lymph % (Auto) 10.2 L [place] % (Auto) 7.0 Eos % (Auto) 0.3 Baso % (Auto) 0.6 Neut # 5.5 Lymph # 0.7 L [place] # 0.5 Eos # 0.0 Baso # 0.0 Neutrophils % (Manual) Band Neutrophils % Lymphocytes % (Manual) Monocytes % (Manual) Basophils % (Manual) Platelet Estimate Large Platelets Poikilocytosis (manual Anisocytosis (manual) Tear Drop Cells Ovalocytes pO2 28 L VBG pH 7.44 H VBG pCO2 43 VBG HCO3 27.5 VBG Total CO2 30.5 H VBG O2 Sat (Calc) 62.2 VBG Base Excess 4.5 H VBG Potassium 3.7 A-a O2 Difference 68.0 Sodium 131.0 L 134 Chloride 96.0 L 96 L Glucose 168 H Lactate 1.4 FiO2 21.0 Crit Value Called To Davey kohli Crit Value Called By 15 Crit Value Read Back Y Blood Gas Notified Time 1105 Potassium 3.9 Carbon Dioxide 27 Anion Gap 15 BUN 17 Creatinine 1.0 Est GFR ( Amer) > 60 Est GFR (Non-Af Amer) > 60 POC Glucose (mg/dL) Random Glucose 167 H Calcium 8.8 Total Bilirubin 0.5 AST 53 ALT 42 Alkaline Phosphatase 106 Total Protein 7.3 Albumin 3.8 Globulin 3.5 Albumin/Globulin Ratio 1.1 Venous Blood Potassium 3.7 Urine Color Urine Clarity Urine pH Ur Specific [place] Urine Protein Urine Glucose (UA) Urine Ketones Urine Blood Urine Nitrate Urine Bilirubin Urine Urobilinogen Ur Leukocyte Esterase Urine RBC (Auto) Urine Microscopic WBC Ur Squamous Epith Cells Urine Bacteria 11/03/16 11/03/16 11/04/16 13:00 21:27 05:30 WBC RBC Hgb Hct MCV MCH MCHC RDW Plt Count MPV Neut % (Auto) Lymph % (Auto) [place] % (Auto) Eos % (Auto) Baso % (Auto) Neut # Lymph # [place] # Eos # Baso # Neutrophils % (Manual) Band Neutrophils % Lymphocytes % (Manual) Monocytes % (Manual) Basophils % (Manual) Platelet Estimate Large Platelets Poikilocytosis (manual Anisocytosis (manual) Tear Drop Cells Ovalocytes pO2 VBG pH VBG pCO2 VBG HCO3 VBG Total CO2 VBG O2 Sat (Calc) VBG Base Excess VBG Potassium A-a O2 Difference Sodium 132 Chloride 96 L Glucose Lactate FiO2 Crit Value Called To Crit Value Called By Crit Value Read Back Blood Gas Notified Time Potassium 3.6 Carbon Dioxide 25 Anion Gap 15 BUN 18 Creatinine 1.4 Est GFR ( Amer) > 60 Est GFR (Non-Af Amer) 51 POC Glucose (mg/dL) 166 H Random Glucose 156 H Calcium 8.4 Total Bilirubin AST ALT Alkaline Phosphatase Total Protein Albumin Globulin Albumin/Globulin Ratio Venous Blood Potassium Urine Color Yellow Urine Clarity Clear Urine pH 6.0 Ur Specific [place] 1.016 Urine Protein 100 Urine Glucose (UA) Neg Urine Ketones Negative Urine Blood Negative Urine Nitrate Negative Urine Bilirubin Negative Urine Urobilinogen 0.2-1.0 Ur Leukocyte Esterase Neg Urine RBC (Auto) 4 H Urine Microscopic WBC 2 Ur Squamous Epith Cells 3 Urine Bacteria Mod H 11/04/16 11/04/16 11/04/16 05:45 07:00 10:25 WBC 6.3 RBC 3.59 L Hgb 9.9 L Hct 30.2 L MCV 84.2 MCH 27.6 MCHC 32.8 L RDW 13.5 Plt Count 228 MPV 8.7 Neut % (Auto) 83.8 H Lymph % (Auto) 9.3 L [place] % (Auto) 6.5 Eos % (Auto) 0.0 Baso % (Auto) 0.4 Neut # 5.3 Lymph # 0.6 L [place] # 0.4 Eos # 0.0 Baso # 0.0 Neutrophils % (Manual) 80 H Band Neutrophils % 3 H Lymphocytes % (Manual) 9 L Monocytes % (Manual) 7 Basophils % (Manual) 1 Platelet Estimate Normal Large Platelets Present Poikilocytosis (manual Slight Anisocytosis (manual) Slight Tear Drop Cells Slight Ovalocytes Slight pO2 VBG pH VBG pCO2 VBG HCO3 VBG Total CO2 VBG O2 Sat (Calc) VBG Base Excess VBG Potassium A-a O2 Difference Sodium Chloride Glucose Lactate FiO2 Crit Value Called To Crit Value Called By Crit Value Read Back Blood Gas Notified Time Potassium Carbon Dioxide Anion Gap BUN Creatinine Est GFR ( Amer) Est GFR (Non-Af Amer) POC Glucose (mg/dL) 165 H 137 H Random Glucose Calcium Total Bilirubin AST ALT Alkaline Phosphatase Total Protein Albumin Globulin Albumin/Globulin Ratio Venous Blood Potassium Urine Color Urine Clarity Urine pH Ur Specific [place] Urine Protein Urine Glucose (UA) Urine Ketones Urine Blood Urine Nitrate Urine Bilirubin Urine Urobilinogen Ur Leukocyte Esterase Urine RBC (Auto) Urine Microscopic WBC Ur Squamous Epith Cells Urine Bacteria 11/04/16 11:20 WBC RBC Hgb Hct MCV MCH MCHC RDW Plt Count MPV Neut % (Auto) Lymph % (Auto) [place] % (Auto) Eos % (Auto) Baso % (Auto) Neut # Lymph # [place] # Eos # Baso # Neutrophils % (Manual) Band Neutrophils % Lymphocytes % (Manual) Monocytes % (Manual) Basophils % (Manual) Platelet Estimate Large Platelets Poikilocytosis (manual Anisocytosis (manual) Tear Drop Cells Ovalocytes pO2 VBG pH VBG pCO2 VBG HCO3 VBG Total CO2 VBG O2 Sat (Calc) VBG Base Excess VBG Potassium A-a O2 Difference Sodium Chloride Glucose Lactate FiO2 Crit Value Called To Crit Value Called By Crit Value Read Back Blood Gas Notified Time Potassium Carbon Dioxide Anion Gap BUN Creatinine Est GFR ( Amer) Est GFR (Non-Af Amer) POC Glucose (mg/dL) 196 H Random Glucose Calcium Total Bilirubin AST ALT Alkaline Phosphatase Total Protein Albumin Globulin Albumin/Globulin Ratio Venous Blood Potassium Urine Color Urine Clarity Urine pH Ur Specific [place] Urine Protein Urine Glucose (UA) Urine Ketones Urine Blood Urine Nitrate Urine Bilirubin Urine Urobilinogen Ur Leukocyte Esterase Urine RBC (Auto) Urine Microscopic WBC Ur Squamous Epith Cells Urine Bacteria Microbiology 11/03/16 10:50 Blood Blood Culture - Preliminary NO GROWTH AFTER 24 HOURS 11/03/16 13:00 Urine,Clean Catch Urine Culture - Final No Growth (<1,000 CFU/ML) 11/03/16 10:35 Blood Blood Culture - Preliminary NO GROWTH AFTER 24 HOURS Assessment and Plan (1) Fever Status: Acute (2) Cellulitis and abscess of foot Status: Acute (3) Thrombus Status: Acute - Assessment and Plan (Free Text) Assessment: A/P- 66 year old amle with multiple medical conditions including DM II, HTN, CVA recently d/c for left foot cellulitis secondary to 4th toe interspace ulcer who is now back with fever . clinically better today but continues to have fever. normal wbc count in light of the left arm thrombus picc line MUST be d/c INEZ. blood cx- neg x2 urine cx- neg plan-- d/c picc line. check ESR. continue with IV zosyn day #2. continue with IV vancomycin and keep trough <15. check either bone scan or CT r/o OM of the left foot . check B/L LE US r/o DVT as well.
[2016-11-04] MEDS: Insulin Detemir 100 Units/ml Inj SC SCH ×2 (11:05→21:56)
[2016-11-04 11:15] LABS: BASOPHIL 1 % (0-2); NEUTROPHIL 80 % (42-75); TOTAL CELLS COUNTED 100
[2016-11-04] MEDS: Vancomycin 1.2 GM in Sodium Chloride 0.9% 250 ML IVPB SCH ×2 (11:15→20:52)
[2016-11-04 11:16] LABS: LARGE PLATELETS PRESENT
--- NOTE | 2016-11-04 12:02 | CP.PCM.PN ---
Subjective - Date & Time of Evaluation Date of Evaluation: 11/04/16 Time of Evaluation: 12:00 - Subjective Subjective: no overnight events. c/o chills last night, improved. eating/drinking. making urine and BM. denies chest pain, SOB, abd pain. Pain in left foot controlled. Objective - Vital Signs/Intake and Output Vital Signs (last 24 hours): Temp Pulse Resp BP Pulse Ox 99.2 F 60 18 149/77 98 11/04/16 08:20 11/04/16 10:15 11/04/16 08:20 11/04/16 10:15 11/04/16 08:20 - Medications Medications: Current Medications Acetaminophen (Tylenol 325mg Tab) 650 mg PO Q4 PRN PRN Reason: Fever >100.4 F Last Admin: 11/04/16 01:52 Dose: 650 mg Albuterol/Ipratropium (Duoneb 3 Mg/0.5 Mg (3 Ml) Ud) 3 ml INH RQ6 PRN PRN Reason: Shortness of Breath Aspirin (Ecotrin) 81 mg PO DAILY [facility] Last Admin: 11/04/16 10:15 Dose: 81 mg Camphor/Menthol (Bengay) 1 applic TOP QID PRN PRN Reason: Other Clopidogrel Bisulfate (Plavix) 75 mg PO DAILY [facility] Last Admin: 11/04/16 10:20 Dose: 75 mg Dextrose (Dextrose 50% Inj) 0 ml IV STAT PRN; Protocol PRN Reason: Hyglycemia Protocol Dextrose (Glutose 15) 0 gm PO ONCE PRN; Protocol PRN Reason: Hypoglycemia Protocol Enoxaparin Sodium (Lovenox) 40 mg SC DAILY [facility] PRN Reason: Protocol Last Admin: 11/04/16 10:20 Dose: 40 mg Furosemide (Lasix) 20 mg PO QOTHERDAY [facility] Gabapentin (Neurontin) 300 mg PO TID PRN PRN Reason: Neuropathic pain Glucagon (Glucagen Diagnostic Kit) 0 mg IM STAT PRN; Protocol PRN Reason: Hypoglycemia Protocol Guaifenesin (Mucinex La) 600 mg PO Q12 [facility] Last Admin: 11/04/16 10:20 Dose: 600 mg Home Med (Brimonidine Tartrate/Timolol [Combigan 0.2%-0.5% Eye Drops]) 1 drop EACHEYE BID [facility] Last Admin: 11/04/16 10:15 Dose: 1 drop Home Med (Travoprost [Travatan Z]) 1 drop EACHEYE HS [facility] Last Admin: 11/03/16 23:24 Dose: 1 drop Hydrochlorothiazide (Microzide) 12.5 mg PO DAILY [facility] Last Admin: 11/04/16 10:20 Dose: 12.5 mg Vancomycin HCl 1.2 gm/ Sodium (Chloride) 250 mls @ 166.667 mls/hr IVPB BID@0900 ,2100 [facility] Last Admin: 11/04/16 11:15 Dose: 166.667 mls/hr Piperacillin Sod/Tazobactam (Sod 3.375 gm/ Sodium Chloride) 100 mls @ 100 mls/ hr IVPB Q8 [facility] Last Admin: 11/04/16 10:21 Dose: 100 mls/hr Insulin Detemir (Levemir) 45 units SC AMHS [facility] Last Admin: 11/04/16 11:05 Dose: 45 units Insulin Human Regular (Humulin R) 0 units SC ACHS [facility] PRN Reason: Protocol Last Admin: 11/04/16 11:34 Dose: 1 units Losartan Potassium (Cozaar) 50 mg PO DAILY [facility] Last Admin: 11/04/16 10:15 Dose: 50 mg - Labs Labs: 11/04/16 07:00 11/04/16 05:30 - Constitutional Appears: Non-toxic, No Acute Distress - Head Exam Head Exam: ATRAUMATIC, NORMAL INSPECTION - Eye Exam Eye Exam: Normal appearance - ENT Exam ENT Exam: Mucous Membranes Moist - Neck Exam Neck Exam: Full ROM, Normal Inspection - Respiratory Exam Respiratory Exam: Wheezes - Cardiovascular Exam Cardiovascular Exam: REGULAR RHYTHM - GI/Abdominal Exam GI & Abdominal Exam: Soft, Normal Bowel Sounds - Extremities Exam Extremities Exam: Pedal Edema Additional comments: left foot dressing intact, clean, no blood/discharge - Back Exam Back Exam: NORMAL INSPECTION - Neurological Exam Neurological Exam: Alert, Oriented x3 - Skin Skin Exam: Dry, Warm Assessment and Plan - Assessment and Plan (Free Text) Assessment: 66 y/o M with a PMHx of DM, HTN, HLD, PVD, CVA and MRSA right foot infection admitted for fever s/p PICC for Left foot diabetic ulcer Plan: IV abx, monitor for sepsis, fever, cx were completed upon admission, may consider verde culture if afebrile for 24 or 48 hours and becomes febrile again. Check with IR for PICC removal or to leave in place. Will use peripheral IV for now 1. Left foot ulcer -febrile, no leukocytosis - IV Zosyn IVPB Q12H - Vancomycin 1200mg IVPB Q12 -start peripheral IV, MIVF - Wound culture pending - Blood culture NGTD - Infectious Disease on board - Podiatry on board. - PICC in place -vanc trough 2. Diabetes Mellitus complicated w/ Neuropathy -controlled - Gabapentin 300 mg TID - Metformin 1000mg BID held - Humalog 100unit/mL, held - Levemir 100unit/mL, 45u AMHS - Atorvastatin 80mg PO HS - SSI, accuchecks 3. HTN - Losartan 50mg PO daily - HCTZ 12.5mg PO daily -lasix 20mg qod 4. Hx of CVA - ASA 81 mg daily - Plavix 75mg PO daily - Travaprost ophthalmic solution. - Combigan 0.2-0.5% 5. DVT Prophylaxis -lovenox
[2016-11-04] MEDS ORDERED: Sodium Chloride 0.9% 1,000 ML IV SCH (12:30)
--- NOTE | 2016-11-04 13:29 | CARD ---
APPROVED REPORT EKG Measurement Heart [id number] <Conclusion> Normal sinus rhythm Minimal voltage criteria for LVH, may be normal variant Borderline ECG
[2016-11-04] MEDS: Patient's Own Med (Travoprost [Travatan Z] 1 DROP) EACHEYE SCH (21:00)
--- NOTE | 2016-11-04 21:05 | CP.PCM.PN ---
Subjective - Date & Time of Evaluation Date of Evaluation: 11/04/16 Time of Evaluation: 09:00 - Subjective Subjective: Podiatry consult note for Dr. Santamaria: 66 y/o male with PMH of DM, HTN, and Charcot is seen at bedside for left foot 4th interspace ulcer. Patient is AA0x3 and in NAD. Seen comfortably laying at bedside. Patient denies any pain to his left foot at this moment. Reports having fever overnight and having chills. Patient states that he was told source of fever may be from PICC line. Patient denies any N/V/SOB/CP. Dressing is c/d/i. Objective - Vital Signs/Intake and Output Vital Signs (last 24 hours): Temp Pulse Resp BP Pulse Ox 100.6 F H 89 20 163/72 H 96 11/04/16 20:50 11/04/16 19:15 11/04/16 19:15 11/04/16 19:15 11/04/16 19:15 - Medications Medications: Current Medications Acetaminophen (Tylenol 325mg Tab) 650 mg PO Q4 PRN PRN Reason: Fever >100.4 F Last Admin: 11/04/16 20:50 Dose: 650 mg Albuterol/Ipratropium (Duoneb 3 Mg/0.5 Mg (3 Ml) Ud) 3 ml INH RQ6 PRN PRN Reason: Shortness of Breath Aspirin (Ecotrin) 81 mg PO DAILY [facility] Last Admin: 11/04/16 10:15 Dose: 81 mg Camphor/Menthol (Bengay) 1 applic TOP QID PRN PRN Reason: Other Clopidogrel Bisulfate (Plavix) 75 mg PO DAILY [facility] Last Admin: 11/04/16 10:20 Dose: 75 mg Dextrose (Dextrose 50% Inj) 0 ml IV STAT PRN; Protocol PRN Reason: Hyglycemia Protocol Dextrose (Glutose 15) 0 gm PO ONCE PRN; Protocol PRN Reason: Hypoglycemia Protocol Diphenhydramine HCl (Benadryl) 25 mg PO Q6 PRN PRN Reason: Itching / Pruritus Enoxaparin Sodium (Lovenox) 40 mg SC DAILY [facility] PRN Reason: Protocol Last Admin: 11/04/16 10:20 Dose: 40 mg Furosemide (Lasix) 20 mg PO QOTHERDAY [facility] Gabapentin (Neurontin) 300 mg PO TID PRN PRN Reason: Neuropathic pain Glucagon (Glucagen Diagnostic Kit) 0 mg IM STAT PRN; Protocol PRN Reason: Hypoglycemia Protocol Guaifenesin (Mucinex La) 600 mg PO Q12 [facility] Last Admin: 11/04/16 20:51 Dose: 600 mg Home Med (Brimonidine Tartrate/Timolol [Combigan 0.2%-0.5% Eye Drops]) 1 drop EACHEYE BID [facility] Last Admin: 11/04/16 16:33 Dose: 1 drop Home Med (Travoprost [Travatan Z]) 1 drop EACHEYE HS [facility] Last Admin: 11/04/16 21:00 Dose: 1 drop Hydrochlorothiazide (Microzide) 12.5 mg PO DAILY [facility] Last Admin: 11/04/16 10:20 Dose: 12.5 mg Vancomycin HCl 1.2 gm/ Sodium (Chloride) 250 mls @ 166.667 mls/hr IVPB BID@0900 ,2100 [facility] Last Admin: 11/04/16 20:52 Dose: 166.667 mls/hr Piperacillin Sod/Tazobactam (Sod 3.375 gm/ Sodium Chloride) 100 mls @ 100 mls/ hr IVPB Q8 [facility] Last Admin: 11/04/16 16:26 Dose: 100 mls/hr Sodium Chloride (Sodium Chloride 0.9%) 1,000 mls @ 125 mls/hr IV .Q8H [facility] Stop: 11/05/16 12:17 Last Admin: 11/04/16 12:49 Dose: 125 mls/hr Insulin Detemir (Levemir) 45 units SC AMHS [facility] Last Admin: 11/04/16 11:05 Dose: 45 units Insulin Human Regular (Humulin R) 0 units SC ACHS [facility] PRN Reason: Protocol Last Admin: 11/04/16 16:27 Dose: 2 units Losartan Potassium (Cozaar) 50 mg PO DAILY [facility] Last Admin: 11/04/16 10:15 Dose: 50 mg - Labs Labs: 11/04/16 07:00 11/04/16 05:30 - Constitutional Appears: Well, Non-toxic, No Acute Distress - Extremities Exam Additional comments: Vasc: DP/PT 2/4 B/L. Temperature gradient warm to cool on R, warm to warm on L. CFT < 3 sec to all digits. +2 pitting edema noted to left leg extending distally to dorsum of L foot Derm: 0.8cm x 0.6cm x 0.2cm circular ulceration noted to medial aspect of L 5th digit in 4th interspace. Granular tissue noted to wound base with venkatesh-wound macerated sloughing skin. no malodor noted. No active drainage. no purulent drainage No tunneling or undermining. Wound borders are macerated. minimal Erythema surrounding 5th digit Neuro: Protective sensation grossly intact Ortho: No tenderness to palpation of L foot 5th digit - Neurological Exam Neurological Exam: Alert, Awake, Oriented x3 - Psychiatric Exam Psychiatric exam: Normal Affect, Normal Mood Assessment and Plan - Assessment and Plan (Free Text) Assessment: 66 y/o male with PMH of DM, HTN, and Charcot with left foot ulceration secondary to diabetes. Plan: Pt seen and evaluated at bedside Discussed plan with attending Dr. Santamaria Chart, labs and vitals reviewed- afebrile, WBC 6.3 Wound cx final- Citrobacter, Enterococcus Faecalis (sensitive to Vancomycin and Zosyn) Betadine and DSD applied to L foot ulcer Cont IV abx through PICC - Vanco, Zosyn - Patient to complete total of 4 weeks of IV abx with a PICC line as per Dr. Roy Patient is stable from podiatry standpoint Patient to follow up in the wound care center with Dr. Santamaria
[2016-11-05] MEDS: Piperacillin/Tazobact 3.375 GM in Sodium Chloride 0.9% 100 ML IVPB SCH ×3 (00:58→17:21)
[2016-11-05] MEDS: Sodium Chloride 0.9% 1,000 ML IV SCH ×2 (01:07→09:13)
[2016-11-05] MEDS: Albuterol-Ipratrop 3 mg / 0.5 (3 ml) UD INH PRN ×2 (01:08→23:25)
[2016-11-05] MEDS: Insulin Regular 100 units/ml SC SCH ×4 (06:45→21:41)
[2016-11-05 06:51] LABS: MEAN CELL VOLUME 84.7 fl (80.0-94.0); MEAN CORPUSCULAR HEMOGLOBIN 27.8 pg (27.0-31.0); MEAN CORPUSCULAR HGB CONC 32.8 g/dL (33.0-37.0); RED CELL DISTRIBUTION WIDTH 13.6 % (11.5-14.5); WHITE BLOOD COUNT 7.7 K/uL (4.8-10.8)
[2016-11-05 07:21] LABS: POTASSIUM 3.4 MMOL/L (3.6-5.0)
[2016-11-05 07:34] LABS: CALCIUM 8.8 mg/dL (8.4-10.2)
[2016-11-05] MEDS: Patient's Own Med (Brimonidine Tartrate/Timolol [Combigan 0.2%-0.5% Eye Drops] 1 DROP) EACHEYE SCH ×2 (09:08→17:21)
[2016-11-05] MEDS: Enoxaparin 40 mg Syringe SC SCH (09:12)
[2016-11-05] MEDS: guaiFENesin 600 mg ER Tab PO SCH ×2 (09:14→21:40)
[2016-11-05] MEDS: Insulin Detemir 100 Units/ml Inj SC SCH ×2 (09:14→21:42)
--- NOTE | 2016-11-05 10:01 | CP.PCM.PN ---
Subjective - Date & Time of Evaluation Date of Evaluation: 11/05/16 Time of Evaluation: 09:10 - Subjective Subjective: 66 y/o male with PMH of DM, HTN, and Charcot is seen and examined at bedside. Pt reports he felt feverish and chills last night but no this morning. Denies chest pain,dyspnea, dizziness or headache. Tolerating PO intact. Reports had 3 episodes of loose stool yesterday. Denies watery diarrhea. Denies seeing blood or mucus in stool. Denies nausea, vomiting, dysuria or abdominal pain. Objective - Vital Signs/Intake and Output Vital Signs (last 24 hours): Temp Pulse Resp BP Pulse Ox 98.7 F 68 18 126/73 98 11/05/16 08:10 11/05/16 09:08 11/05/16 08:10 11/05/16 09:18 11/05/16 08:10 Intake and Output: 11/05/16 11/05/16 06:59 18:59 Intake Total 1550 Balance 1550 - Medications Medications: Current Medications Acetaminophen (Tylenol 325mg Tab) 650 mg PO Q4 PRN PRN Reason: Fever >100.4 F Last Admin: 11/04/16 20:50 Dose: 650 mg Albuterol/Ipratropium (Duoneb 3 Mg/0.5 Mg (3 Ml) Ud) 3 ml INH RQ6 PRN PRN Reason: Shortness of Breath Last Admin: 11/05/16 01:08 Dose: 3 ml Aspirin (Ecotrin) 81 mg PO DAILY [facility] Last Admin: 11/05/16 09:12 Dose: 81 mg Camphor/Menthol (Bengay) 1 applic TOP QID PRN PRN Reason: Other Clopidogrel Bisulfate (Plavix) 75 mg PO DAILY [facility] Last Admin: 11/05/16 09:12 Dose: 75 mg Dextrose (Dextrose 50% Inj) 0 ml IV STAT PRN; Protocol PRN Reason: Hyglycemia Protocol Dextrose (Glutose 15) 0 gm PO ONCE PRN; Protocol PRN Reason: Hypoglycemia Protocol Diphenhydramine HCl (Benadryl) 25 mg PO Q6 PRN PRN Reason: Itching / Pruritus Enoxaparin Sodium (Lovenox) 40 mg SC DAILY [facility] PRN Reason: Protocol Last Admin: 11/05/16 09:12 Dose: 40 mg Furosemide (Lasix) 20 mg PO QOTHERDAY [facility] Last Admin: 11/05/16 09:18 Dose: 20 mg Gabapentin (Neurontin) 300 mg PO TID PRN PRN Reason: Neuropathic pain Glucagon (Glucagen Diagnostic Kit) 0 mg IM STAT PRN; Protocol PRN Reason: Hypoglycemia Protocol Guaifenesin (Mucinex La) 600 mg PO Q12 [facility] Last Admin: 11/05/16 09:14 Dose: 600 mg Home Med (Brimonidine Tartrate/Timolol [Combigan 0.2%-0.5% Eye Drops]) 1 drop EACHEYE BID [facility] Last Admin: 11/05/16 09:08 Dose: 1 drop Home Med (Travoprost [Travatan Z]) 1 drop EACHEYE HS [facility] Last Admin: 11/04/16 21:00 Dose: 1 drop Hydrochlorothiazide (Microzide) 12.5 mg PO DAILY [facility] Last Admin: 11/05/16 09:11 Dose: 12.5 mg Piperacillin Sod/Tazobactam (Sod 3.375 gm/ Sodium Chloride) 100 mls @ 100 mls/ hr IVPB Q8 [facility] Last Admin: 11/05/16 09:12 Dose: 100 mls/hr Sodium Chloride (Sodium Chloride 0.9%) 1,000 mls @ 150 mls/hr IV .Q6H40M [facility] Stop: 11/05/16 12:17 Last Admin: 11/05/16 09:13 Dose: 150 mls/hr Vancomycin HCl 1 gm/ Sodium (Chloride) 250 mls @ 166.667 mls/hr IVPB BID@0900, 2100 [facility] Insulin Detemir (Levemir) 45 units SC AMHS [facility] Last Admin: 11/05/16 09:14 Dose: 45 units Insulin Human Regular (Humulin R) 0 units SC ACHS [facility] PRN Reason: Protocol Last Admin: 11/05/16 06:45 Dose: Not Given Losartan Potassium (Cozaar) 50 mg PO DAILY [facility] Last Admin: 11/05/16 09:08 Dose: 50 mg - Labs Labs: 11/05/16 08:30 11/05/16 05:45 - Constitutional Appears: Well, No Acute Distress - Head Exam Head Exam: NORMAL INSPECTION, NORMOCEPHALIC - Eye Exam Eye Exam: Normal appearance - ENT Exam ENT Exam: Mucous Membranes Moist - Respiratory Exam Respiratory Exam: Clear to Ausculation Bilateral. absent: Rales, Rhonchi, Wheezes, Respiratory Distress - Cardiovascular Exam Cardiovascular Exam: REGULAR RHYTHM, RRR, +S1, +S2 - GI/Abdominal Exam GI & Abdominal Exam: Soft, Normal Bowel Sounds. absent: Tenderness, Rebound - Extremities Exam Extremities Exam: absent: Calf Tenderness Additional comments: Dressing in place in left lower leg. Dressing looks clean, dry and intact. no discharge or blood seen. NVI. - Neurological Exam Neurological Exam: Alert, Awake, Oriented x3 - Psychiatric Exam Psychiatric exam: Normal Affect, Normal Mood Assessment and Plan - Assessment and Plan (Free Text) Assessment: Assessment and plan: 66 y/o M with a PMHx of DM, HTN, HLD, PVD, CVA and MRSA right foot infection admitted for fever s/p PICC for Left foot diabetic ulcer. Plan: IV abx, monitor for sepsis, fever, cx were completed upon admission, may consider verde culture if afebrile for 24 or 48 hours and becomes febrile again. PICC removed on 11/04/16 w/ no complication. 1. Left foot ulcer -febrile, no leukocytosis - Continue IV Zosyn IVPB Q12H - Stop Vancomycin 1200mg IVPB Q12, - Start Vancomycin 1000 mg IVPB Q12. - receiving abx via peripheral IV. - Blood culture NGTD - Infectious Disease on board - Podiatry on board. - PICC line removed on 11/04/16 w/ no complication. - vanc trough: 19.1 - ESR 97 -procalcinonin 2.57 2. Hypokalemia: -Asymptomatic -K:3.4 -KCl 20 meq -AM labs. 2. Diabetes Mellitus complicated w/ Neuropathy -controlled - Gabapentin 300 mg TID - Metformin 1000mg BID held - Humalog 100unit/mL, held - Levemir 100unit/mL, 45u AMHS - Atorvastatin 80mg PO HS - SSI, accuchecks 3. HTN - Losartan 50mg PO daily - HCTZ 12.5mg PO daily -lasix 20mg qod 4. Hx of CVA - ASA 81 mg daily - Plavix 75mg PO daily - Travaprost ophthalmic solution. - Combigan 0.2-0.5% 5. DVT Prophylaxis -lovenox
[2016-11-05] MEDS ORDERED: Potassium Chloride 20 mEq ER Tab PO ONE (10:38)
--- NOTE | 2016-11-05 10:39 | US ---
PROCEDURE: Bilateral lower extremity venous duplex Doppler. HISTORY: leg pain COMPARISON: Comparison is made to the previous study dated 04/05/2015 TECHNIQUE: Bilateral common femoral, superficial femoral, popliteal and posterior tibial veins were evaluated. Flow was assessed with color Doppler, compressibility, assessment of phasic flow and augmentation response. FINDINGS: COMMON FEMORAL VEIN: Right CFV: Unremarkable. Left CFV: Unremarkable. SUPERFICIAL FEMORAL VEIN: Right SFV: Unremarkable. Left SFV: Unremarkable. POPLITEAL VEIN: Right Popliteal: Unremarkable. Left Popliteal: Unremarkable. POSTERIOR TIBIAL VEIN: Right PTV: Unremarkable. Left PTV: Unremarkable. OTHER FINDINGS: Enlarged lymph nodes at the right groin measures 3.4 centimeter. IMPRESSION: No evidence of deep venous thrombosis. Mildly enlarged right groin lymph node measures 3.4 centimeter.
--- NOTE | 2016-11-05 11:23 | CP.PCM.PN ---
Subjective - Date & Time of Evaluation Date of Evaluation: 11/05/16 Time of Evaluation: 11:20 - Subjective Subjective: 66 y/o male with PMH of DM, HTN, HLD, PVD and Charcot is seen at bedside for left foot 4th interspace ulceration. Patient just got back from getting CT scan this morning. He states that he is feeling better today. He is in NAD and AAOx 3. Denies any overnight chills and fever. States his PICC line was removed yesterday afternoon. Patient reports no pain to his left foot. Denies n/v/sob/ cp. Dressing is c/d/i with no strikethrough noted. Objective - Vital Signs/Intake and Output Vital Signs (last 24 hours): Temp Pulse Resp BP Pulse Ox 98.7 F 68 18 126/73 98 11/05/16 08:10 11/05/16 09:08 11/05/16 08:10 11/05/16 09:18 11/05/16 08:10 Intake and Output: 11/05/16 11/05/16 06:59 18:59 Intake Total 1550 Balance 1550 - Medications Medications: Current Medications Acetaminophen (Tylenol 325mg Tab) 650 mg PO Q4 PRN PRN Reason: Fever >100.4 F Last Admin: 11/04/16 20:50 Dose: 650 mg Albuterol/Ipratropium (Duoneb 3 Mg/0.5 Mg (3 Ml) Ud) 3 ml INH RQ6 PRN PRN Reason: Shortness of Breath Last Admin: 11/05/16 01:08 Dose: 3 ml Aspirin (Ecotrin) 81 mg PO DAILY [facility] Last Admin: 11/05/16 09:12 Dose: 81 mg Camphor/Menthol (Bengay) 1 applic TOP QID PRN PRN Reason: Other Clopidogrel Bisulfate (Plavix) 75 mg PO DAILY [facility] Last Admin: 11/05/16 09:12 Dose: 75 mg Dextrose (Dextrose 50% Inj) 0 ml IV STAT PRN; Protocol PRN Reason: Hyglycemia Protocol Dextrose (Glutose 15) 0 gm PO ONCE PRN; Protocol PRN Reason: Hypoglycemia Protocol Diphenhydramine HCl (Benadryl) 25 mg PO Q6 PRN PRN Reason: Itching / Pruritus Enoxaparin Sodium (Lovenox) 40 mg SC DAILY [facility] PRN Reason: Protocol Last Admin: 11/05/16 09:12 Dose: 40 mg Furosemide (Lasix) 20 mg PO QOTHERDAY [facility] Last Admin: 11/05/16 09:18 Dose: 20 mg Gabapentin (Neurontin) 300 mg PO TID PRN PRN Reason: Neuropathic pain Glucagon (Glucagen Diagnostic Kit) 0 mg IM STAT PRN; Protocol PRN Reason: Hypoglycemia Protocol Guaifenesin (Mucinex La) 600 mg PO Q12 [facility] Last Admin: 11/05/16 09:14 Dose: 600 mg Home Med (Brimonidine Tartrate/Timolol [Combigan 0.2%-0.5% Eye Drops]) 1 drop EACHEYE BID [facility] Last Admin: 11/05/16 09:08 Dose: 1 drop Home Med (Travoprost [Travatan Z]) 1 drop EACHEYE HS [facility] Last Admin: 11/04/16 21:00 Dose: 1 drop Hydrochlorothiazide (Microzide) 12.5 mg PO DAILY [facility] Last Admin: 11/05/16 09:11 Dose: 12.5 mg Piperacillin Sod/Tazobactam (Sod 3.375 gm/ Sodium Chloride) 100 mls @ 100 mls/ hr IVPB Q8 [facility] Last Admin: 11/05/16 09:12 Dose: 100 mls/hr Sodium Chloride (Sodium Chloride 0.9%) 1,000 mls @ 150 mls/hr IV .Q6H40M [facility] Stop: 11/05/16 12:17 Last Admin: 11/05/16 09:13 Dose: 150 mls/hr Vancomycin HCl 1 gm/ Sodium (Chloride) 250 mls @ 166.667 mls/hr IVPB BID@0900, 2100 [facility] Insulin Detemir (Levemir) 45 units SC AMHS [facility] Last Admin: 11/05/16 09:14 Dose: 45 units Insulin Human Regular (Humulin R) 0 units SC ACHS [facility] PRN Reason: Protocol Last Admin: 11/05/16 06:45 Dose: Not Given Lactobacillus Acidophilus (Bacid Acidophilus) 1 cap PO BID [facility] Losartan Potassium (Cozaar) 50 mg PO DAILY [facility] Last Admin: 11/05/16 09:08 Dose: 50 mg - Labs Labs: 11/05/16 08:30 11/05/16 05:45 - Constitutional Appears: Well, Non-toxic, No Acute Distress - Extremities Exam Additional comments: Vasc: DP/PT 2/4 B/L. Temperature gradient warm to cool on R, warm to warm on L. CFT < 3 sec to all digits. +1 pitting edema noted to left leg extending distally to dorsum of L foot Derm: 0.8cm x 0.6cm x 0.2cm circular ulceration noted to medial aspect of L 5th digit in 4th interspace. Granular tissue noted to wound base with venkatesh-wound macerated sloughing skin. no malodor noted. No active drainage. no purulent drainage No tunneling or undermining. Wound borders are macerated. minimal Erythema surrounding 5th digit Neuro: Protective sensation grossly intact Ortho: No tenderness to palpation of L foot 5th digit - Neurological Exam Neurological Exam: Alert, Awake, Oriented x3 - Psychiatric Exam Psychiatric exam: Normal Affect, Normal Mood Assessment and Plan - Assessment and Plan (Free Text) Assessment: 66 y/o male with PMH of DM, HTN, HLD, PVD and Charcot is seen at bedside for left foot 4th interspace ulceration. Plan: Pt seen and evaluated at bedside Discussed plan with attending Dr. Santamaria Chart, labs and vitals reviewed- afebrile, WBC 7.7 Wound cx on 10/27- Citrobacter, Enterococcus Faecalis (sensitive to Vancomycin and Zosyn) Betadine, cling, JUSTIN applied to L foot ulcer Cont IV abx through peripheral IV - Vanco, Zosyn Pending CT results Pending US results Pending blood culture results Patient to follow up in the wound care center with Dr. Santamaria
[2016-11-05] MEDS: Lactobacillus Acidophilus 500 MU Cap PO SCH (17:21)
[2016-11-05] MEDS: Patient's Own Med (Travoprost [Travatan Z] 1 DROP) EACHEYE SCH (21:43)
[2016-11-06] MEDS: Piperacillin/Tazobact 3.375 GM in Sodium Chloride 0.9% 100 ML IVPB SCH ×3 (01:44→17:40)
[2016-11-06 06:27] LABS: HEMATOCRIT 29.3 % (35.0-51.0); MEAN CELL VOLUME 84.2 fl (80.0-94.0); MEAN CORPUSCULAR HGB CONC 33.2 g/dL (33.0-37.0); RED CELL DISTRIBUTION WIDTH 13.9 % (11.5-14.5); WHITE BLOOD COUNT 7.4 K/uL (4.8-10.8)
[2016-11-06 06:32] LABS: BLOOD UREA NITROGEN 21 mg/dl (9-20); CALCIUM 8.3 mg/dL (8.4-10.2); CARBON DIOXIDE 23 mmol/L (22-30); CHLORIDE 106 mmol/L (98-107); GFR AFRICAN-AMERICAN > 60; GLUCOSE,RANDOM 104 mg/dL (75-110); POTASSIUM 3.4 MMOL/L (3.6-5.0); SODIUM 140 mmol/l (132-148)
--- NOTE | 2016-11-06 06:36 | CP.PCM.PN ---
Subjective - Date & Time of Evaluation Date of Evaluation: 11/06/16 Time of Evaluation: 06:34 - Subjective Subjective: 66 y/o male with PMH of DM, HTN, HLD, PVD and Charcot is seen at bedside for left foot 4th interspace ulceration. Patient states that he is feeling better today and denies of any recent F/N/V/C/SOB/CP. He is in NAD and AAOx 3. Denies any overnight acute events. Patient reports no pain to his left foot. Dressing is c/d/i with no strikethrough noted. Objective - Vital Signs/Intake and Output Vital Signs (last 24 hours): Temp Pulse Resp BP Pulse Ox 98.6 F 67 20 127/74 96 11/06/16 04:57 11/06/16 04:57 11/06/16 04:57 11/06/16 04:57 11/06/16 04:57 - Medications Medications: Current Medications Acetaminophen (Tylenol 325mg Tab) 650 mg PO Q4 PRN PRN Reason: Fever >100.4 F Last Admin: 11/04/16 20:50 Dose: 650 mg Albuterol/Ipratropium (Duoneb 3 Mg/0.5 Mg (3 Ml) Ud) 3 ml INH RQ6 PRN PRN Reason: Shortness of Breath Last Admin: 11/05/16 23:25 Dose: 3 ml Aspirin (Ecotrin) 81 mg PO DAILY [facility] Last Admin: 11/05/16 09:12 Dose: 81 mg Camphor/Menthol (Bengay) 1 applic TOP QID PRN PRN Reason: Other Clopidogrel Bisulfate (Plavix) 75 mg PO DAILY [facility] Last Admin: 11/05/16 09:12 Dose: 75 mg Dextrose (Dextrose 50% Inj) 0 ml IV STAT PRN; Protocol PRN Reason: Hyglycemia Protocol Dextrose (Glutose 15) 0 gm PO ONCE PRN; Protocol PRN Reason: Hypoglycemia Protocol Diphenhydramine HCl (Benadryl) 25 mg PO Q6 PRN PRN Reason: Itching / Pruritus Enoxaparin Sodium (Lovenox) 40 mg SC DAILY [facility] PRN Reason: Protocol Last Admin: 11/05/16 09:12 Dose: 40 mg Furosemide (Lasix) 20 mg PO QOTHERDAY [facility] Last Admin: 11/05/16 09:18 Dose: 20 mg Gabapentin (Neurontin) 300 mg PO TID PRN PRN Reason: Neuropathic pain Glucagon (Glucagen Diagnostic Kit) 0 mg IM STAT PRN; Protocol PRN Reason: Hypoglycemia Protocol Guaifenesin (Mucinex La) 600 mg PO Q12 [facility] Last Admin: 11/05/16 21:40 Dose: 600 mg Home Med (Brimonidine Tartrate/Timolol [Combigan 0.2%-0.5% Eye Drops]) 1 drop EACHEYE BID [facility] Last Admin: 11/05/16 17:21 Dose: 1 drop Home Med (Travoprost [Travatan Z]) 1 drop EACHEYE HS [facility] Last Admin: 11/05/16 21:43 Dose: 1 drop Hydrochlorothiazide (Microzide) 12.5 mg PO DAILY [facility] Last Admin: 11/05/16 09:11 Dose: 12.5 mg Piperacillin Sod/Tazobactam (Sod 3.375 gm/ Sodium Chloride) 100 mls @ 100 mls/ hr IVPB Q8 [facility] Last Admin: 11/06/16 01:44 Dose: 100 mls/hr Vancomycin HCl 1 gm/ Sodium (Chloride) 250 mls @ 166.667 mls/hr IVPB BID@0900, 2100 [facility] Last Admin: 11/05/16 21:40 Dose: 166.667 mls/hr Insulin Detemir (Levemir) 45 units SC AMHS [facility] Last Admin: 11/05/16 21:42 Dose: 45 units Insulin Human Regular (Humulin R) 0 units SC ACHS [facility] PRN Reason: Protocol Last Admin: 11/05/16 21:41 Dose: Not Given Lactobacillus Acidophilus (Bacid Acidophilus) 1 cap PO BID [facility] Last Admin: 11/05/16 17:21 Dose: 1 cap Losartan Potassium (Cozaar) 50 mg PO DAILY [facility] Last Admin: 11/05/16 09:08 Dose: 50 mg - Labs Labs: 11/05/16 08:30 11/05/16 05:45 - Constitutional Appears: Well, Non-toxic, No Acute Distress - Extremities Exam Additional comments: Vasc: DP/PT 2/4 B/L. Temperature gradient warm to cool on R, warm to warm on L. CFT < 3 sec to all digits. +1 pitting edema noted to left leg extending distally to dorsum of L foot Derm: 0.8cm x 0.6cm x 0.2cm circular ulceration noted to medial aspect of L 5th digit in 4th interspace. Granular tissue noted to wound base with venkatesh-wound macerated sloughing skin and distal skin appears hyperpigmented. no malodor noted. No active drainage. no purulent drainage No tunneling or undermining. Wound borders are macerated. minimal Erythema surrounding 5th digit Neuro: Protective sensation grossly intact Ortho: No tenderness to palpation of L foot 5th digit - Neurological Exam Neurological Exam: Alert, Awake, Oriented x3 - Psychiatric Exam Psychiatric exam: Normal Affect, Normal Mood Assessment and Plan - Assessment and Plan (Free Text) Assessment: 66 y/o male with PMH of DM, HTN, HLD, PVD and Charcot is seen at bedside for left foot 4th interspace ulceration. Plan: Pt seen and evaluated at bedside Patient discussed in details with attending Dr. Santamaria Chart, labs and vitals reviewed- afebrile, WBC 7.7 as of 11/05 Wound cx on 10/27- Citrobacter, Enterococcus Faecalis (sensitive to Vancomycin and Zosyn) Betadine, cling, JUSTIN applied to L foot ulcer Cont IV abx through peripheral IV - Vanco, Zosyn US - no evidence of DVT Pending CT results Pending blood culture - no growth after 48 hours Patient is stable from podiatry standpoint Patient to follow up in the wound care center with Dr. Santamaria
[2016-11-06] MEDS: Insulin Regular 100 units/ml SC SCH ×4 (07:30→22:29)
[2016-11-06] MEDS ORDERED: Potassium Chloride 20 mEq ER Tab PO ONE (09:00)
[2016-11-06] MEDS: Lactobacillus Acidophilus 500 MU Cap PO SCH ×2 (09:22→17:35)
[2016-11-06] MEDS: Patient's Own Med (Brimonidine Tartrate/Timolol [Combigan 0.2%-0.5% Eye Drops] 1 DROP) EACHEYE SCH ×2 (09:25→17:35)
[2016-11-06] MEDS: Insulin Detemir 100 Units/ml Inj SC SCH ×2 (09:30→22:29)
[2016-11-06] MEDS: guaiFENesin 600 mg ER Tab PO SCH ×2 (09:31→22:32)
[2016-11-06] MEDS: Enoxaparin 40 mg Syringe SC SCH (09:31)
--- NOTE | 2016-11-06 11:40 | CP.PCM.PN ---
Subjective - Date & Time of Evaluation Date of Evaluation: 11/06/16 Time of Evaluation: 13:00 - Subjective Subjective: ID note- Pt. seen and examined today. denies any fever or chills. states he feels much betetr since the picc line was d/c. states had diarrhea today. Objective - Vital Signs/Intake and Output Vital Signs (last 24 hours): Temp Pulse Resp BP Pulse Ox 98.9 F 60 20 152/78 H 96 11/06/16 08:15 11/06/16 09:26 11/06/16 08:15 11/06/16 09:26 11/06/16 08:15 - Medications Medications: Current Medications Acetaminophen (Tylenol 325mg Tab) 650 mg PO Q4 PRN PRN Reason: Fever >100.4 F Last Admin: 11/04/16 20:50 Dose: 650 mg Albuterol/Ipratropium (Duoneb 3 Mg/0.5 Mg (3 Ml) Ud) 3 ml INH RQ6 PRN PRN Reason: Shortness of Breath Last Admin: 11/05/16 23:25 Dose: 3 ml Aspirin (Ecotrin) 81 mg PO DAILY [facility] Last Admin: 11/06/16 09:26 Dose: 81 mg Camphor/Menthol (Bengay) 1 applic TOP QID PRN PRN Reason: Other Clopidogrel Bisulfate (Plavix) 75 mg PO DAILY [facility] Last Admin: 11/06/16 09:32 Dose: 75 mg Dextrose (Dextrose 50% Inj) 0 ml IV STAT PRN; Protocol PRN Reason: Hyglycemia Protocol Dextrose (Glutose 15) 0 gm PO ONCE PRN; Protocol PRN Reason: Hypoglycemia Protocol Diphenhydramine HCl (Benadryl) 25 mg PO Q6 PRN PRN Reason: Itching / Pruritus Enoxaparin Sodium (Lovenox) 40 mg SC DAILY [facility] PRN Reason: Protocol Last Admin: 11/06/16 09:31 Dose: 40 mg Furosemide (Lasix) 20 mg PO QOTHERDAY [facility] Last Admin: 11/05/16 09:18 Dose: 20 mg Gabapentin (Neurontin) 300 mg PO TID PRN PRN Reason: Neuropathic pain Glucagon (Glucagen Diagnostic Kit) 0 mg IM STAT PRN; Protocol PRN Reason: Hypoglycemia Protocol Guaifenesin (Mucinex La) 600 mg PO Q12 [facility] Last Admin: 11/06/16 09:31 Dose: 600 mg Home Med (Brimonidine Tartrate/Timolol [Combigan 0.2%-0.5% Eye Drops]) 1 drop EACHEYE BID [facility] Last Admin: 11/06/16 09:25 Dose: 1 drop Home Med (Travoprost [Travatan Z]) 1 drop EACHEYE HS [facility] Last Admin: 11/05/16 21:43 Dose: 1 drop Hydrochlorothiazide (Microzide) 12.5 mg PO DAILY [facility] Last Admin: 11/06/16 09:31 Dose: 12.5 mg Piperacillin Sod/Tazobactam (Sod 3.375 gm/ Sodium Chloride) 100 mls @ 100 mls/ hr IVPB Q8 [facility] Last Admin: 11/06/16 09:32 Dose: 100 mls/hr Vancomycin HCl 1 gm/ Sodium (Chloride) 250 mls @ 166.667 mls/hr IVPB BID@0900, 2100 [facility] Last Admin: 11/06/16 09:33 Dose: 166.667 mls/hr Insulin Detemir (Levemir) 45 units SC AMHS [facility] Last Admin: 11/06/16 09:30 Dose: 45 units Insulin Human Regular (Humulin R) 0 units SC ACHS [facility] PRN Reason: Protocol Last Admin: 11/06/16 07:30 Dose: Not Given Lactobacillus Acidophilus (Bacid Acidophilus) 1 cap PO BID [facility] Last Admin: 11/06/16 09:22 Dose: 1 cap Losartan Potassium (Cozaar) 50 mg PO DAILY [facility] Last Admin: 11/06/16 09:26 Dose: 50 mg - Labs Labs: - Constitutional Appears: No Acute Distress - Head Exam Head Exam: ATRAUMATIC - Eye Exam Eye Exam: EOMI - ENT Exam ENT Exam: Normal Oropharynx - Neck Exam Neck Exam: Full ROM - Respiratory Exam Respiratory Exam: Clear to Ausculation Bilateral, NORMAL BREATHING PATTERN - Cardiovascular Exam Cardiovascular Exam: RRR, +S1, +S2 - GI/Abdominal Exam GI & Abdominal Exam: Soft, Normal Bowel Sounds Additional comments: NT, ND - Extremities Exam Additional comments: b/l LE erythema and warmth has resolved. left foot with left fourth interspace small opening with malodor and scant serosanguinous discharge and edema surrounding region but much less than on admission. - Neurological Exam Neurological Exam: Alert, Oriented x3 - Additional Findings Additional findings: Laboratory Results - last 72 hr 11/03/16 11/04/16 11/04/16 21:27 05:30 05:45 WBC RBC Hgb Hct MCV MCH MCHC RDW Plt Count MPV Neut % (Auto) Lymph % (Auto) [place] % (Auto) Eos % (Auto) Baso % (Auto) Neut # Lymph # [place] # Eos # Baso # Neutrophils % (Manual) Band Neutrophils % Lymphocytes % (Manual) Monocytes % (Manual) Basophils % (Manual) Platelet Estimate Large Platelets Poikilocytosis (manual Anisocytosis (manual) Tear Drop Cells Ovalocytes ESR Sodium 132 Potassium 3.6 Chloride 96 L Carbon Dioxide 25 Anion Gap 15 BUN 18 Creatinine 1.4 Est GFR ( Amer) > 60 Est GFR (Non-Af Amer) 51 POC Glucose (mg/dL) 166 H 165 H Random Glucose 156 H Calcium 8.4 Procalcitonin Vancomycin Trough C. difficile Ag & Toxin 11/04/16 11/04/16 11/04/16 07:00 10:25 11:20 WBC 6.3 RBC 3.59 L Hgb 9.9 L Hct 30.2 L MCV 84.2 MCH 27.6 MCHC 32.8 L RDW 13.5 Plt Count 228 MPV 8.7 Neut % (Auto) 83.8 H Lymph % (Auto) 9.3 L [place] % (Auto) 6.5 Eos % (Auto) 0.0 Baso % (Auto) 0.4 Neut # 5.3 Lymph # 0.6 L [place] # 0.4 Eos # 0.0 Baso # 0.0 Neutrophils % (Manual) 80 H Band Neutrophils % 3 H Lymphocytes % (Manual) 9 L Monocytes % (Manual) 7 Basophils % (Manual) 1 Platelet Estimate Normal Large Platelets Present Poikilocytosis (manual Slight Anisocytosis (manual) Slight Tear Drop Cells Slight Ovalocytes Slight ESR Sodium Potassium Chloride Carbon Dioxide Anion Gap BUN Creatinine Est GFR ( Amer) Est GFR (Non-Af Amer) POC Glucose (mg/dL) 137 H 196 H Random Glucose Calcium Procalcitonin Vancomycin Trough C. difficile Ag & Toxin 11/04/16 11/04/16 11/04/16 15:30 16:02 20:00 WBC RBC Hgb Hct MCV MCH MCHC RDW Plt Count MPV Neut % (Auto) Lymph % (Auto) [place] % (Auto) Eos % (Auto) Baso % (Auto) Neut # Lymph # [place] # Eos # Baso # Neutrophils % (Manual) Band Neutrophils % Lymphocytes % (Manual) Monocytes % (Manual) Basophils % (Manual) Platelet Estimate Large Platelets Poikilocytosis (manual Anisocytosis (manual) Tear Drop Cells Ovalocytes ESR Sodium Potassium Chloride Carbon Dioxide Anion Gap BUN Creatinine Est GFR ( Amer) Est GFR (Non-Af Amer) POC Glucose (mg/dL) 246 H Random Glucose Calcium Procalcitonin 2.57 H Vancomycin Trough 15.0 H C. difficile Ag & Toxin 11/04/16 11/05/16 11/05/16 21:05 05:11 05:45 WBC RBC Hgb Hct MCV MCH MCHC RDW Plt Count MPV Neut % (Auto) Lymph % (Auto) [place] % (Auto) Eos % (Auto) Baso % (Auto) Neut # Lymph # [place] # Eos # Baso # Neutrophils % (Manual) Band Neutrophils % Lymphocytes % (Manual) Monocytes % (Manual) Basophils % (Manual) Platelet Estimate Large Platelets Poikilocytosis (manual Anisocytosis (manual) Tear Drop Cells Ovalocytes ESR Sodium 138 Potassium 3.4 L Chloride 99 Carbon Dioxide 24 Anion Gap 18 BUN 21 H Creatinine 1.5 Est GFR ( Amer) 57 Est GFR (Non-Af Amer) 47 POC Glucose (mg/dL) 216 H 121 H Random Glucose 112 H Calcium 8.8 Procalcitonin Vancomycin Trough C. difficile Ag & Toxin 11/05/16 11/05/16 11/05/16 05:45 08:30 11:12 WBC 7.7 RBC 4.02 L Hgb 11.2 L Hct 34.0 L MCV 84.7 MCH 27.8 MCHC 32.8 L RDW 13.6 Plt Count 243 MPV Neut % (Auto) Lymph % (Auto) [place] % (Auto) Eos % (Auto) Baso % (Auto) Neut # Lymph # [place] # Eos # Baso # Neutrophils % (Manual) Band Neutrophils % Lymphocytes % (Manual) Monocytes % (Manual) Basophils % (Manual) Platelet Estimate Large Platelets Poikilocytosis (manual Anisocytosis (manual) Tear Drop Cells Ovalocytes ESR 97 H Sodium Potassium Chloride Carbon Dioxide Anion Gap BUN Creatinine Est GFR ( Amer) Est GFR (Non-Af Amer) POC Glucose (mg/dL) 244 H Random Glucose Calcium Procalcitonin Vancomycin Trough 19.1 H C. difficile Ag & Toxin 11/05/16 11/05/16 11/06/16 16:05 21:14 05:15 WBC 7.4 RBC 3.48 L Hgb 9.7 L Hct 29.3 L MCV 84.2 MCH 28.0 MCHC 33.2 RDW 13.9 Plt Count 212 MPV Neut % (Auto) Lymph % (Auto) [place] % (Auto) Eos % (Auto) Baso % (Auto) Neut # Lymph # [place] # Eos # Baso # Neutrophils % (Manual) Band Neutrophils % Lymphocytes % (Manual) Monocytes % (Manual) Basophils % (Manual) Platelet Estimate Large Platelets Poikilocytosis (manual Anisocytosis (manual) Tear Drop Cells Ovalocytes ESR Sodium Potassium Chloride Carbon Dioxide Anion Gap BUN Creatinine Est GFR ( Amer) Est GFR (Non-Af Amer) POC Glucose (mg/dL) 236 H 297 H Random Glucose Calcium Procalcitonin Vancomycin Trough C. difficile Ag & Toxin 11/06/16 11/06/16 11/06/16 05:15 05:26 14:00 WBC RBC Hgb Hct MCV MCH MCHC RDW Plt Count MPV Neut % (Auto) Lymph % (Auto) [place] % (Auto) Eos % (Auto) Baso % (Auto) Neut # Lymph # [place] # Eos # Baso # Neutrophils % (Manual) Band Neutrophils % Lymphocytes % (Manual) Monocytes % (Manual) Basophils % (Manual) Platelet Estimate Large Platelets Poikilocytosis (manual Anisocytosis (manual) Tear Drop Cells Ovalocytes ESR Sodium 140 Potassium 3.4 L Chloride 106 Carbon Dioxide 23 Anion Gap 14 BUN 21 H Creatinine 1.4 Est GFR ( Amer) > 60 Est GFR (Non-Af Amer) 51 POC Glucose (mg/dL) 119 H Random Glucose 104 Calcium 8.3 L Procalcitonin Vancomycin Trough C. difficile Ag & Toxin Negative Microbiology 11/03/16 10:50 Blood Blood Culture - Preliminary NO GROWTH AFTER 3 DAYS 11/03/16 10:35 Blood Blood Culture - Preliminary NO GROWTH AFTER 3 DAYS 11/03/16 19:17 Blood-Thru Central Line Blood Culture - Preliminary NO GROWTH AFTER 48 HOURS 11/03/16 13:00 Urine,Clean Catch Urine Culture - Final No Growth (<1,000 CFU/ML) Assessment and Plan (1) Fever Status: Acute (2) Cellulitis and abscess of foot Status: Acute (3) Thrombus Status: Acute - Assessment and Plan (Free Text) Assessment: A/P- 66 year old amle with multiple medical conditions including DM II, HTN, CVA recently d/c for left foot cellulitis secondary to 4th toe interspace ulcer who was admitted with fever. afebrile since PICC line removal. blood cx- neg x 3 urine cx- neg plan-- await left FOOt ct report r/o OM. continue with IV zosyn for now. hold vanco since trough was high today. recheck trough tomm amd and if <15 can redose. will most likely need fpc IV abx for the left foot nonhealing wound. all above d/w patient at length and he verbalizes full understanding of all above. all above d/w DR.Pierre Baig.
--- NOTE | 2016-11-06 14:37 | CP.PCM.PN ---
Subjective - Date & Time of Evaluation Date of Evaluation: 11/06/16 Time of Evaluation: 07:55 - Subjective Subjective: Patient seen and examined at bedside this AM. Reports has been having loose BM last 2 days. Had 2 episodes of BM yesterday. Denies watery diarrhea, blood or mucus in stool. Denies nausea, vomiting, abdominal pain, dysuria, fever, chills , chest pain,dyspnea, dizziness or headache. Tolerating PO intact. Vitals WNL. Objective - Vital Signs/Intake and Output Vital Signs (last 24 hours): Temp Pulse Resp BP Pulse Ox 98.3 F 62 18 150/77 97 11/06/16 12:46 11/06/16 12:46 11/06/16 12:46 11/06/16 12:46 11/06/16 12:46 - Medications Medications: Current Medications Acetaminophen (Tylenol 325mg Tab) 650 mg PO Q4 PRN PRN Reason: Fever >100.4 F Last Admin: 11/04/16 20:50 Dose: 650 mg Albuterol/Ipratropium (Duoneb 3 Mg/0.5 Mg (3 Ml) Ud) 3 ml INH RQ6 PRN PRN Reason: Shortness of Breath Last Admin: 11/05/16 23:25 Dose: 3 ml Aspirin (Ecotrin) 81 mg PO DAILY [facility] Last Admin: 11/06/16 09:26 Dose: 81 mg Camphor/Menthol (Bengay) 1 applic TOP QID PRN PRN Reason: Other Clopidogrel Bisulfate (Plavix) 75 mg PO DAILY [facility] Last Admin: 11/06/16 09:32 Dose: 75 mg Dextrose (Dextrose 50% Inj) 0 ml IV STAT PRN; Protocol PRN Reason: Hyglycemia Protocol Dextrose (Glutose 15) 0 gm PO ONCE PRN; Protocol PRN Reason: Hypoglycemia Protocol Diphenhydramine HCl (Benadryl) 25 mg PO Q6 PRN PRN Reason: Itching / Pruritus Enoxaparin Sodium (Lovenox) 40 mg SC DAILY [facility] PRN Reason: Protocol Last Admin: 11/06/16 09:31 Dose: 40 mg Furosemide (Lasix) 20 mg PO QOTHERDAY [facility] Last Admin: 11/05/16 09:18 Dose: 20 mg Gabapentin (Neurontin) 300 mg PO TID PRN PRN Reason: Neuropathic pain Glucagon (Glucagen Diagnostic Kit) 0 mg IM STAT PRN; Protocol PRN Reason: Hypoglycemia Protocol Guaifenesin (Mucinex La) 600 mg PO Q12 [facility] Last Admin: 11/06/16 09:31 Dose: 600 mg Home Med (Brimonidine Tartrate/Timolol [Combigan 0.2%-0.5% Eye Drops]) 1 drop EACHEYE BID [facility] Last Admin: 11/06/16 09:25 Dose: 1 drop Home Med (Travoprost [Travatan Z]) 1 drop EACHEYE HS [facility] Last Admin: 11/05/16 21:43 Dose: 1 drop Hydrochlorothiazide (Microzide) 12.5 mg PO DAILY [facility] Last Admin: 11/06/16 09:31 Dose: 12.5 mg Piperacillin Sod/Tazobactam (Sod 3.375 gm/ Sodium Chloride) 100 mls @ 100 mls/ hr IVPB Q8 [facility] Last Admin: 11/06/16 09:32 Dose: 100 mls/hr Vancomycin HCl 1 gm/ Sodium (Chloride) 250 mls @ 166.667 mls/hr IVPB BID@0900, 2100 [facility] Last Admin: 11/06/16 09:33 Dose: 166.667 mls/hr Insulin Detemir (Levemir) 45 units SC AMHS [facility] Last Admin: 11/06/16 09:30 Dose: 45 units Insulin Human Regular (Humulin R) 0 units SC ACHS [facility] PRN Reason: Protocol Last Admin: 11/06/16 07:30 Dose: Not Given Lactobacillus Acidophilus (Bacid Acidophilus) 1 cap PO BID [facility] Last Admin: 11/06/16 09:22 Dose: 1 cap Losartan Potassium (Cozaar) 50 mg PO DAILY [facility] Last Admin: 11/06/16 09:26 Dose: 50 mg - Labs Labs: 11/06/16 05:15 11/06/16 05:15 - Constitutional Appears: Well, No Acute Distress, Other (obese) - Head Exam Head Exam: NORMAL INSPECTION, NORMOCEPHALIC - Eye Exam Eye Exam: Normal appearance - ENT Exam ENT Exam: Mucous Membranes Moist - Neck Exam Neck Exam: Normal Inspection - Respiratory Exam Respiratory Exam: Clear to Ausculation Bilateral. absent: Rales, Rhonchi, Wheezes - Cardiovascular Exam Cardiovascular Exam: REGULAR RHYTHM, RRR, +S1, +S2 - GI/Abdominal Exam GI & Abdominal Exam: Soft, Normal Bowel Sounds. absent: Tenderness - Extremities Exam Extremities Exam: Normal Capillary Refill, Normal Inspection. absent: Calf Tenderness, Pedal Edema Additional comments: Dressing intact in left foot. Dressing looks clean, dry and intact. no discharge or blood seen. NVI - Neurological Exam Neurological Exam: Alert, Awake, Oriented x3 - Psychiatric Exam Psychiatric exam: Normal Affect, Normal Mood Assessment and Plan - Assessment and Plan (Free Text) Assessment: Assessment and plan: 66 y/o M with a PMHx of DM, HTN, HLD, PVD, CVA and MRSA right foot infection admitted for fever s/p PICC for Left foot diabetic ulcer. Plan: IV abx, monitor for sepsis, fever, cx were completed upon admission, may consider verde culture if afebrile for 24 or 48 hours and becomes febrile again. PICC removed on 11/04/16 w/ no complication. 1. Left foot ulcer -febrile, no leukocytosis - Continue IV Zosyn IVPB Q12H - Stop Vancomycin 1200mg IVPB Q12, - Start Vancomycin 1000 mg IVPB Q12. - receiving abx via peripheral IV. - Blood culture NGTD - Infectious Disease on board - Podiatry on board. - PICC line removed on 11/04/16 w/ no complication. - vanc trough: 19.1 - ESR 97 -procalcinonin 2.57 2. Hypokalemia: -Asymptomatic -K:3.4 -KCl 20 meq -AM labs. 3. Loose Stool -C diff toxin sent -contact precaution -f/u labs 4. Diabetes Mellitus complicated w/ Neuropathy -controlled - Gabapentin 300 mg TID - Metformin 1000mg BID held - Humalog 100unit/mL, held - Levemir 100unit/mL, 45u AMHS - Atorvastatin 80mg PO HS - SSI, accuchecks 5. HTN - Losartan 50mg PO daily - HCTZ 12.5mg PO daily -lasix 20mg qod 6. Hx of CVA - ASA 81 mg daily - Plavix 75mg PO daily - Travaprost ophthalmic solution. - Combigan 0.2-0.5% 7. DVT Prophylaxis -lovenox 40 mg sc daily
--- NOTE | 2016-11-06 16:34 | CT ---
PROCEDURE: CT scan of the left ankle joint without contrast HISTORY: rule out osteo COMPARISON: Plain radiographs from 10/27/2016. TECHNIQUE: Contiguous axial images of the left ankle were obtained. Coronal and sagittal reformats were generated. This CT exam was performed using one or more of the following dose reduction techniques: Automated exposure control, adjustment of the mA and/or kV according to patient size, and/or use of iterative reconstruction technique. FINDINGS: BONES: Status post fusion of the subtalar and tarsometatarsal joints with along metallic screw traversing through talus, navicular, medial cuneiform and 1st metatarsal. There is no evidence of lucency surrounding the metallic screw to suggest loosening. There is no screw fracture. There are multiple osseous fragments in the region of the ankle joint and intertarsal joints. There is severe degenerative osteoarthrosis in the talocalcaneal, talonavicular and intertarsal joints with subarticular cystic changes. There is no evidence of bone erosion or destruction. A screw track is identified in the calcaneus. There is a probable chronic fracture deformity in the anterior talus. There is a prominent plantar calcaneal spur and dorsal calcaneal enthesophyte. There is a prominent stieda process. There is a small joint effusion. SOFT TISSUES: There is a 2.2 x 2.7 x 2.3 cm loculated collection in the plantar soft tissues of the anterior humeral. There is diffuse subcutaneous edema in the distal leg, ankle and foot. IMPRESSION: 1. 2.2 x 2.7 x 2.3 cm hematoma versus complex fluid collection in the plantar soft tissues of the anterior humeral. Diffuse subcutaneous edema in the ankle and foot, worse in the heel could represent cellulitis. Postsurgical changes and deformity in an around the talonavicular joint. No definite evidence of erosion or bone destruction to suggest acute osteomyelitis. However MRI is more sensitive for evaluation of early marrow changes. 2. 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 3.Status post fusion of the talonavicular, intertarsal and tarsometatarsal joints. No evidence of hardware complications. Screw tract is also the identified in the calcaneus.
[2016-11-06] MEDS: Silver Sulfadiazine 1% Cream (20 gm) TOP SCH (17:38)
[2016-11-06] MEDS: Enoxaparin 120 mg Syringe SC SCH (22:31)
[2016-11-06] MEDS: Patient's Own Med (Travoprost [Travatan Z] 1 DROP) EACHEYE SCH (22:33)
[2016-11-07] MEDS: Piperacillin/Tazobact 3.375 GM in Sodium Chloride 0.9% 100 ML IVPB SCH ×3 (00:24→19:05)
[2016-11-07 06:21] LABS: MEAN CELL VOLUME 84.1 fl (80.0-94.0); MEAN CORPUSCULAR HEMOGLOBIN 27.7 pg (27.0-31.0); MEAN CORPUSCULAR HGB CONC 32.9 g/dL (33.0-37.0); RED CELL DISTRIBUTION WIDTH 13.7 % (11.5-14.5); WHITE BLOOD COUNT 7.2 K/uL (4.8-10.8)
[2016-11-07 06:40] LABS: BLOOD UREA NITROGEN 14 mg/dl (9-20); CALCIUM 8.7 mg/dL (8.4-10.2); CARBON DIOXIDE 25 mmol/L (22-30); CHLORIDE 105 mmol/L (98-107); GFR AFRICAN-AMERICAN > 60; GLUCOSE,RANDOM 116 mg/dL (75-110); POTASSIUM 3.5 MMOL/L (3.6-5.0); SODIUM 143 mmol/l (132-148)
--- NOTE | 2016-11-07 06:49 | CP.PCM.PN ---
Subjective - Date & Time of Evaluation Date of Evaluation: 11/07/16 Time of Evaluation: 06:47 - Subjective Subjective: 66 y/o male with Charcot deformity seen at bedside for left foot 4th interspace ulceration. He is in NAD and AAOx 3. Denies any overnight acute events. Patient states that he is feeling much better today and denies of any recent F/N/V/C/SOB /CP. Patient reports no pain to his left foot. Dressing is c/d/i with no strikethrough noted. Objective - Vital Signs/Intake and Output Vital Signs (last 24 hours): Temp Pulse Resp BP Pulse Ox 98.4 F 61 18 134/75 96 11/07/16 05:39 11/07/16 05:39 11/07/16 05:39 11/07/16 05:39 11/07/16 05:39 Intake and Output: 11/06/16 11/07/16 18:59 06:59 Intake Total 940 Balance 940 - Medications Medications: Current Medications Acetaminophen (Tylenol 325mg Tab) 650 mg PO Q4 PRN PRN Reason: Fever >100.4 F Last Admin: 11/04/16 20:50 Dose: 650 mg Albuterol/Ipratropium (Duoneb 3 Mg/0.5 Mg (3 Ml) Ud) 3 ml INH RQ6 PRN PRN Reason: Shortness of Breath Last Admin: 11/05/16 23:25 Dose: 3 ml Aspirin (Ecotrin) 81 mg PO DAILY [facility] Last Admin: 11/06/16 09:26 Dose: 81 mg Camphor/Menthol (Bengay) 1 applic TOP QID PRN PRN Reason: Other Clopidogrel Bisulfate (Plavix) 75 mg PO DAILY [facility] Last Admin: 11/06/16 09:32 Dose: 75 mg Dextrose (Dextrose 50% Inj) 0 ml IV STAT PRN; Protocol PRN Reason: Hyglycemia Protocol Dextrose (Glutose 15) 0 gm PO ONCE PRN; Protocol PRN Reason: Hypoglycemia Protocol Diphenhydramine HCl (Benadryl) 25 mg PO Q6 PRN PRN Reason: Itching / Pruritus Enoxaparin Sodium (Lovenox) 120 mg SC Q12 [facility]DIRA PRN Reason: Protocol Last Admin: 11/06/16 22:31 Dose: 120 mg Furosemide (Lasix) 20 mg PO QOTHERDAY [facility] Last Admin: 11/05/16 09:18 Dose: 20 mg Gabapentin (Neurontin) 300 mg PO TID PRN PRN Reason: Neuropathic pain Glucagon (Glucagen Diagnostic Kit) 0 mg IM STAT PRN; Protocol PRN Reason: Hypoglycemia Protocol Guaifenesin (Mucinex La) 600 mg PO Q12 [facility] Last Admin: 11/06/16 22:32 Dose: 600 mg Home Med (Brimonidine Tartrate/Timolol [Combigan 0.2%-0.5% Eye Drops]) 1 drop EACHEYE BID [facility] Last Admin: 11/06/16 17:35 Dose: 1 drop Home Med (Travoprost [Travatan Z]) 1 drop EACHEYE HS [facility] Last Admin: 11/06/16 22:33 Dose: 1 drop Hydrochlorothiazide (Microzide) 12.5 mg PO DAILY [facility] Last Admin: 11/06/16 09:31 Dose: 12.5 mg Piperacillin Sod/Tazobactam (Sod 3.375 gm/ Sodium Chloride) 100 mls @ 100 mls/ hr IVPB Q8 [facility] Last Admin: 11/07/16 00:24 Dose: 100 mls/hr Vancomycin HCl 1 gm/ Sodium (Chloride) 250 mls @ 166.667 mls/hr IVPB BID@0900, 2100 [facility] Last Admin: 11/06/16 09:33 Dose: 166.667 mls/hr Insulin Detemir (Levemir) 45 units SC AMHS [facility] Last Admin: 11/06/16 22:29 Dose: 45 units Insulin Human Regular (Humulin R) 0 units SC ACHS [facility] PRN Reason: Protocol Last Admin: 11/06/16 22:29 Dose: Not Given Lactobacillus Acidophilus (Bacid Acidophilus) 1 cap PO BID [facility] Last Admin: 11/06/16 17:35 Dose: 1 cap Losartan Potassium (Cozaar) 50 mg PO DAILY [facility] Last Admin: 11/06/16 09:26 Dose: 50 mg Nystatin (Mycostatin Cream) 1 applic TOP TID [facility] Last Admin: 11/06/16 17:38 Dose: 1 applic Silver Sulfadiazine (Silvadene 1% 20 Gm) 0 ea TOP BID [facility] Last Admin: 11/06/16 17:38 Dose: 1 applic - Labs Labs: 11/07/16 05:40 11/07/16 05:40 PT 12.6 Seconds (9.8-13.1) 11/07/16 05:40 INR 1.2 (0.9-1.2) 11/07/16 05:40 APTT 34.0 Seconds (25.6-37.1) 11/07/16 05:40 - Constitutional Appears: Well, Non-toxic, No Acute Distress - Extremities Exam Additional comments: Vasc: DP/PT 2/4 B/L. Temperature gradient warm to cool on R, warm to warm on L. CFT < 3 sec to all digits. +1 pitting edema noted to left leg extending distally to dorsum of L foot Derm: 0.8cm x 0.6cm x 0.2cm circular ulceration noted to medial aspect of L 5th digit in 4th interspace. Granular tissue noted to wound base with venkatesh-wound macerated sloughing skin and distal skin appears hyperpigmented. no malodor noted. No active drainage. no purulent drainage No tunneling or undermining. Wound borders are macerated. minimal Erythema surrounding 5th digit Neuro: Protective sensation grossly intact Ortho: No tenderness to palpation of L foot 5th digit - Neurological Exam Neurological Exam: Alert, Awake, Oriented x3 - Psychiatric Exam Psychiatric exam: Normal Affect, Normal Mood Assessment and Plan - Assessment and Plan (Free Text) Assessment: 66 y/o male with PMH of DM, HTN, HLD, PVD and Charcot is seen at bedside for left foot 4th interspace ulceration. Plan: Pt seen and evaluated at bedside Patient discussed in details with attending Dr. Santamaria Chart, labs and vitals reviewed- afebrile, WBC 7.2 Wound cx on 10/27- Citrobacter, Enterococcus Faecalis (sensitive to Vancomycin and Zosyn) Betadine, cling, JUSTIN applied to L foot ulcer Cont IV abx through peripheral IV - Vanco, Zosyn US - no evidence of DVT CT results: No evidence of OM Blood culture (Prelim) - no growth after 3 days Patient is stable from podiatry standpoint Patient to follow up in the wound care center with Dr. Santamaria
[2016-11-07] MEDS ORDERED: Potassium Chloride 20 mEq ER Tab PO ONE (07:33)
--- NOTE | 2016-11-07 07:38 | CP.PCM.PN ---
Subjective - Date & Time of Evaluation Date of Evaluation: 11/07/16 Time of Evaluation: 07:35 - Subjective Subjective: Patient seen and examined at bedside this AM. States he had one regular BM last night. Denies watery diarrhea, blood or mucus in stool. Also, Reports itching rash in left groin area. Denies rash in the other parts of the body. Denies nausea, vomiting, abdominal pain, dysuria, fever, chills, chest pain,dyspnea, dizziness or headache. Tolerating PO intact. Vitals WNL. Objective - Vital Signs/Intake and Output Vital Signs (last 24 hours): Temp Pulse Resp BP Pulse Ox 98.4 F 61 18 134/75 96 11/07/16 05:39 11/07/16 05:39 11/07/16 05:39 11/07/16 05:39 11/07/16 05:39 Intake and Output: 11/07/16 11/07/16 06:59 18:59 Intake Total 940 Balance 940 - Medications Medications: Current Medications Acetaminophen (Tylenol 325mg Tab) 650 mg PO Q4 PRN PRN Reason: Fever >100.4 F Last Admin: 11/04/16 20:50 Dose: 650 mg Albuterol/Ipratropium (Duoneb 3 Mg/0.5 Mg (3 Ml) Ud) 3 ml INH RQ6 PRN PRN Reason: Shortness of Breath Last Admin: 11/05/16 23:25 Dose: 3 ml Aspirin (Ecotrin) 81 mg PO DAILY [facility] Last Admin: 11/06/16 09:26 Dose: 81 mg Camphor/Menthol (Bengay) 1 applic TOP QID PRN PRN Reason: Other Clopidogrel Bisulfate (Plavix) 75 mg PO DAILY [facility] Last Admin: 11/06/16 09:32 Dose: 75 mg Dextrose (Dextrose 50% Inj) 0 ml IV STAT PRN; Protocol PRN Reason: Hyglycemia Protocol Dextrose (Glutose 15) 0 gm PO ONCE PRN; Protocol PRN Reason: Hypoglycemia Protocol Diphenhydramine HCl (Benadryl) 25 mg PO Q6 PRN PRN Reason: Itching / Pruritus Enoxaparin Sodium (Lovenox) 120 mg SC Q12 [facility] PRN Reason: Protocol Last Admin: 11/06/16 22:31 Dose: 120 mg Furosemide (Lasix) 20 mg PO QOTHERDAY [facility] Last Admin: 11/05/16 09:18 Dose: 20 mg Gabapentin (Neurontin) 300 mg PO TID PRN PRN Reason: Neuropathic pain Glucagon (Glucagen Diagnostic Kit) 0 mg IM STAT PRN; Protocol PRN Reason: Hypoglycemia Protocol Guaifenesin (Mucinex La) 600 mg PO Q12 [facility] Last Admin: 11/06/16 22:32 Dose: 600 mg Home Med (Brimonidine Tartrate/Timolol [Combigan 0.2%-0.5% Eye Drops]) 1 drop EACHEYE BID [facility] Last Admin: 11/06/16 17:35 Dose: 1 drop Home Med (Travoprost [Travatan Z]) 1 drop EACHEYE HS [facility] Last Admin: 11/06/16 22:33 Dose: 1 drop Hydrochlorothiazide (Microzide) 12.5 mg PO DAILY [facility] Last Admin: 11/06/16 09:31 Dose: 12.5 mg Piperacillin Sod/Tazobactam (Sod 3.375 gm/ Sodium Chloride) 100 mls @ 100 mls/ hr IVPB Q8 [facility] Last Admin: 11/07/16 00:24 Dose: 100 mls/hr Vancomycin HCl 1 gm/ Sodium (Chloride) 250 mls @ 166.667 mls/hr IVPB BID@0900, 2100 [facility] Last Admin: 11/06/16 09:33 Dose: 166.667 mls/hr Insulin Detemir (Levemir) 45 units SC AMHS [facility] Last Admin: 11/06/16 22:29 Dose: 45 units Insulin Human Regular (Humulin R) 0 units SC ACHS [facility] PRN Reason: Protocol Last Admin: 11/06/16 22:29 Dose: Not Given Lactobacillus Acidophilus (Bacid Acidophilus) 1 cap PO BID [facility] Last Admin: 11/06/16 17:35 Dose: 1 cap Losartan Potassium (Cozaar) 50 mg PO DAILY [facility] Last Admin: 11/06/16 09:26 Dose: 50 mg Nystatin (Mycostatin Cream) 1 applic TOP TID [facility] Last Admin: 11/06/16 17:38 Dose: 1 applic Potassium Chloride (K-Dur 20 Meq Er Tab) 20 meq PO ONCE ONE Stop: 11/07/16 07:34 Silver Sulfadiazine (Silvadene 1% 20 Gm) 0 ea TOP BID [facility] Last Admin: 11/06/16 17:38 Dose: 1 applic - Labs Labs: 11/07/16 05:40 11/07/16 05:40 PT 12.6 Seconds (9.8-13.1) 11/07/16 05:40 INR 1.2 (0.9-1.2) 11/07/16 05:40 APTT 34.0 Seconds (25.6-37.1) 11/07/16 05:40 - Constitutional Appears: Well, Non-toxic, No Acute Distress, Other (Obese) - Head Exam Head Exam: NORMAL INSPECTION, NORMOCEPHALIC - Eye Exam Eye Exam: Normal appearance - ENT Exam ENT Exam: Mucous Membranes Moist - Neck Exam Neck Exam: Normal Inspection - Respiratory Exam Respiratory Exam: Clear to Ausculation Bilateral, NORMAL BREATHING PATTERN. absent: Rales, Rhonchi, Wheezes - Cardiovascular Exam Cardiovascular Exam: REGULAR RHYTHM, RRR, +S1, +S2 - GI/Abdominal Exam GI & Abdominal Exam: Soft, Normal Bowel Sounds. absent: Tenderness - Extremities Exam Extremities Exam: Normal Capillary Refill. absent: Calf Tenderness Additional comments: has minimal right pedal edema, +pedal pulse. Left foot is covered with triston wrap. no discharge/bleeding seen. NVI. - Neurological Exam Neurological Exam: Alert, Awake, Oriented x3 - Skin Additional comments: Left arm: open blister on left upper arm near the PICC insertion area. no surrounding erythema, swelling or discharge seen. Left groin: erythematous multiple circular rash on left inner thigh. no signs of infection. Assessment and Plan - Assessment and Plan (Free Text) Assessment: Assessment and plan: 66 y/o M with a PMHx of DM, HTN, HLD, PVD, CVA and MRSA right foot infection admitted for fever s/p PICC for Left foot diabetic ulcer. 1. Left foot ulcer - afebrile, no leukocytosis - Continue IV Zosyn IVPB Q12H - Vancomycin 1000 mg IVPB Q12 was stopped yesterday due to elevated vanc trough. This morning vanc trough is 11.6. Per ID, will resume vanco from this morning. - receiving abx via peripheral IV. - Blood culture: neg x 3. - Infectious Disease on board - Podiatry on board. - PICC line removed on 11/04/16 w/ no complication. - vanc trough:11.6 - ESR 97 -procalcinonin 2.57 2. Hypokalemia: -Asymptomatic -K:3.5 -KCl 20 meq -AM labs. 3. Cephalic vein thrombus: -CT left upper extremity: evidence of occlusive thrombus involving short segment of left cephalic vein near the antecubital fossa. -Continue with Lovenox 120 mg SC BID. 4. Loose Stool( Resolved) -C diff toxin negative. 5. Diabetes Mellitus complicated w/ Neuropathy -controlled - Gabapentin 300 mg TID - Metformin 1000mg BID held - Humalog 100unit/mL, held - Levemir 100unit/mL, 45u AMHS - Atorvastatin 80mg PO HS - SSI, accuchecks 6. HTN - Losartan 50mg PO daily - HCTZ 12.5mg PO daily -lasix 20mg qod 7. Hx of CVA - ASA 81 mg daily - Plavix 75mg PO daily - Travaprost ophthalmic solution. - Combigan 0.2-0.5% 8. Rash in left inner thigh -hydrocortisone 1% BID -nystatin TID 9. Blister in left upper thigh -healing -continue with silvadene 10. DVT Prophylaxis -receiving lovenox 120 mg SC bid for cephalic vein thrombus.
[2016-11-07] MEDS: Patient's Own Med (Brimonidine Tartrate/Timolol [Combigan 0.2%-0.5% Eye Drops] 1 DROP) EACHEYE SCH ×2 (09:29→17:57)
[2016-11-07] MEDS: Insulin Regular 100 units/ml SC SCH ×4 (09:31→21:49)
[2016-11-07] MEDS: Enoxaparin 120 mg Syringe SC SCH ×2 (09:32→21:00)
[2016-11-07] MEDS: Insulin Detemir 100 Units/ml Inj SC SCH ×2 (09:33→21:50)
[2016-11-07] MEDS: guaiFENesin 600 mg ER Tab PO SCH ×2 (09:35→21:00)
[2016-11-07] MEDS: Silver Sulfadiazine 1% Cream (20 gm) TOP SCH ×2 (09:37→18:06)
--- NOTE | 2016-11-07 11:40 | RAD ---
HISTORY: repeat cxr COMPARISON: Chest 11/03/2016. TECHNIQUE: Chest PA and lateral FINDINGS: Prior left PICC now removed. LUNGS: No active pulmonary disease. PLEURA: No significant pleural effusion identified. No pneumothorax apparent. CARDIOVASCULAR: Normal. OSSEOUS STRUCTURES: No significant abnormalities. VISUALIZED UPPER ABDOMEN: Normal. OTHER FINDINGS: None. IMPRESSION: No acute cardiopulmonary disease as compared to 11/03/2016. Prior left PICC now removed.
[2016-11-07] MEDS: Lactobacillus Acidophilus 500 MU Cap PO SCH ×2 (13:20→17:57)
--- NOTE | 2016-11-07 14:28 | PQF GENQUE ---
Dr. Duque, Please clarify the cause of fever: if known after the work up is completed Bacterial Drug-induced Fungal Infectious disease Viral Other cause(please specify) Clinically unable to determine Unknown Chart documentation: 66 y/o M with a PMHx of DM, HTN, HLD, PVD, CVA and MRSA right foot infection admitted for fever s/p PICC for Left foot diabetic ulcer.; PICC removed on 11/04/16 w/no complications 1. Left foot ulcer - afebrile, no leukocytosis - Continue IV Zosyn IVPB Q12H - Vancomycin 1000 mg IVPB Q12 was stoppedyesterday due to elevated vanc trough. This morning vanc trough is 11.6. Per ID, will resume vanco from this morning. - receiving abx via peripheral IV. - Blood culture: neg x 3. - Infectious Disease on board - Podiatry on board. - PICC line removed on 11/04/16 w/ no complication. - vanc trough:11.6- ESR 97 -procalcinonin 2.57 2. Hypokalemia: -Asymptomatic -K:3.5 -KCl 20 meq -AM labs. 3. Cephalic vein thrombus: -CT left upper extremity: evidence of occlusive thrombus involving short segment of left cephalic vein near the antecubital fossa. -Continue with Lovenox 120 mg SC BID. 4. Loose Stool( Resolved) -C diff toxin negative. 5. Diabetes Mellitus complicated w/ Neuropathy -controlled - Gabapentin 300 mg TID - Metformin 1000mg BID held - Humalog 100unit/mL, held - Levemir 100unit/mL, 45u AMHS - Atorvastatin 80mg PO HS - SSI, accuchecks 6. HTN - Losartan 50mg PO daily - HCTZ 12.5mg PO daily -lasix 20mg qod 7. Hx of CVA - ASA 81 mg daily - Plavix 75mg PO daily - Travaprost ophthalmic solution. - Combigan 0.2-0.5% 8. Rash in left inner thigh -hydrocortisone 1% BID -nystatin TID 9. Blister in left upper thigh -healing -continue with silvadene 10. DVT Prophylaxis -receiving lovenox 120 mg SC bid for cephalic vein thrombus. This form is a permanent part of the medical record Clarification of your documentation is requested to better reflect the severity of illness and intensity of treatment of your patient. Indicators present [] Specify: [] [] Specify: [] [] Specify: [] [] Specify: [] Location in the medical record that reflects the above clinical findings: [] Treatment Provided: [] PHYSICIAN'S RESPONSE Fever may be due to UE thrombus vs infected PICC line Based on your medical judgment of the clinical indicators outlined above please clarify the following: [] Practitioner response [] If unable to determine, please check the box, sign and date. Present On Admission (POA) Indicator: [] Present at the time of admission [] Not present at the time of admission [] Clinically Undetermined In responding to this query, please exercise your independent professional judgment. The fact that a question is asked does not imply that any particular answer is desired or expected. Thank you for your clarification on this documentation. If you have any questions please call. * Thank you, Jenni De Los Santos RN ext. #[phone]: Sunni REDMOND
--- NOTE | 2016-11-07 15:08 | CP.PCM.PCO ---
Assessment/Plan - Assessment and Plan (Free Text) Assessment: Fever- suspect may be due to UE thrombus vs infected PICC line -however bl cx negative Anemia- unclear etiology will follow
[2016-11-07] MEDS: Patient's Own Med (Travoprost [Travatan Z] 1 DROP) EACHEYE SCH (21:00)
[2016-11-08] MEDS: Piperacillin/Tazobact 3.375 GM in Sodium Chloride 0.9% 100 ML IVPB SCH ×2 (00:57→09:09)
--- NOTE | 2016-11-08 07:26 | CP.PCM.PN ---
Subjective - Date & Time of Evaluation Date of Evaluation: 11/08/16 Time of Evaluation: 08:10 - Subjective Subjective: Podiatry progress note for Dr. Santamaria 66 y/o male with Charcot deformity seen at bedside for left foot 4th interspace ulceration. He is in NAD and AAOx 3. Denies any overnight acute events. Patient states that he is feeling much better today and denies of any recent F/N/V/C/SOB /CP. Patient is aware that he will be getting a PICC line today for prison IV abx. Patient reports no pain to his left foot. Dressing is c/d/i with no strikethrough noted. Objective - Vital Signs/Intake and Output Vital Signs (last 24 hours): Temp Pulse Resp BP Pulse Ox 98.6 F 62 19 132/68 97 11/08/16 00:44 11/08/16 00:44 11/08/16 00:44 11/08/16 00:44 11/08/16 00:44 - Medications Medications: Current Medications Acetaminophen (Tylenol 325mg Tab) 650 mg PO Q4 PRN PRN Reason: Fever >100.4 F Last Admin: 11/04/16 20:50 Dose: 650 mg Albuterol/Ipratropium (Duoneb 3 Mg/0.5 Mg (3 Ml) Ud) 3 ml INH RQ6 PRN PRN Reason: Shortness of Breath Last Admin: 11/05/16 23:25 Dose: 3 ml Aspirin (Ecotrin) 81 mg PO DAILY [facility] Last Admin: 11/07/16 09:31 Dose: 81 mg Camphor/Menthol (Bengay) 1 applic TOP QID PRN PRN Reason: Other Clopidogrel Bisulfate (Plavix) 75 mg PO DAILY [facility] Last Admin: 11/07/16 09:36 Dose: 75 mg Dextrose (Dextrose 50% Inj) 0 ml IV STAT PRN; Protocol PRN Reason: Hyglycemia Protocol Dextrose (Glutose 15) 0 gm PO ONCE PRN; Protocol PRN Reason: Hypoglycemia Protocol Diphenhydramine HCl (Benadryl) 25 mg PO Q6 PRN PRN Reason: Itching / Pruritus Enoxaparin Sodium (Lovenox) 120 mg SC Q12 [facility] PRN Reason: Protocol Last Admin: 11/07/16 21:00 Dose: 120 mg Furosemide (Lasix) 20 mg PO QOTHERDAY [facility] Last Admin: 11/07/16 09:32 Dose: 20 mg Gabapentin (Neurontin) 300 mg PO TID PRN PRN Reason: Neuropathic pain Glucagon (Glucagen Diagnostic Kit) 0 mg IM STAT PRN; Protocol PRN Reason: Hypoglycemia Protocol Guaifenesin (Mucinex La) 600 mg PO Q12 [facility] Last Admin: 11/07/16 21:00 Dose: 600 mg Home Med (Brimonidine Tartrate/Timolol [Combigan 0.2%-0.5% Eye Drops]) 1 drop EACHEYE BID [facility] Last Admin: 11/07/16 17:57 Dose: 1 drop Home Med (Travoprost [Travatan Z]) 1 drop EACHEYE HS [facility] Last Admin: 11/07/16 21:00 Dose: 1 drop Hydrochlorothiazide (Microzide) 12.5 mg PO DAILY [facility] Last Admin: 11/07/16 09:32 Dose: 12.5 mg Hydrocortisone (Cortizone 1% Cream) 1 applic TOP BID [facility] Last Admin: 11/07/16 18:07 Dose: 1 applic Piperacillin Sod/Tazobactam (Sod 3.375 gm/ Sodium Chloride) 100 mls @ 100 mls/ hr IVPB Q8 [facility] Last Admin: 11/08/16 00:57 Dose: 100 mls/hr Vancomycin HCl 1 gm/ Sodium (Chloride) 250 mls @ 166.667 mls/hr IVPB BID@0900, 2100 [facility] Last Admin: 11/06/16 09:33 Dose: 166.667 mls/hr Insulin Detemir (Levemir) 45 units SC [facility] Last Admin: 11/07/16 21:50 Dose: 45 units Insulin Human Regular (Humulin R) 0 units SC ACHS [facility] PRN Reason: Protocol Last Admin: 11/07/16 21:49 Dose: 2 units Lactobacillus Acidophilus (Bacid Acidophilus) 1 cap PO BID [facility] Last Admin: 11/07/16 17:57 Dose: 1 cap Losartan Potassium (Cozaar) 50 mg PO DAILY [facility] Last Admin: 11/07/16 09:30 Dose: 50 mg Nystatin (Mycostatin Cream) 1 applic TOP TID [facility] Last Admin: 11/07/16 18:15 Dose: 1 applic Silver Sulfadiazine (Silvadene 1% 20 Gm) 0 ea TOP BID [facility] Last Admin: 11/07/16 18:06 Dose: 1 applic - Labs Labs: 11/07/16 05:40 11/07/16 05:40 PT 12.6 Seconds (9.8-13.1) 11/07/16 05:40 INR 1.2 (0.9-1.2) 11/07/16 05:40 APTT 34.0 Seconds (25.6-37.1) 11/07/16 05:40 - Constitutional Appears: Well, Non-toxic, No Acute Distress - Extremities Exam Additional comments: Vasc: DP/PT 2/4 B/L. Temperature gradient warm to cool on R, warm to warm on L. Cap refill time: < 3 sec to all digits. Pitting edema to to dorsal foot appears to be resolving Derm: 0.8cm x 0.6cm x 0.2cm circular ulceration noted to medial aspect of L 5th digit in 4th interspace. Granular tissue noted to wound base with venkatesh-wound macerated sloughing skin and distal skin appears hyperpigmented. no malodor noted. No active drainage. no purulent drainage, No tunneling or undermining. Wound borders are macerated. minimal Erythema surrounding 5th digit Neuro: Protective sensation grossly intact Ortho: No tenderness to palpation of L foot 5th digit - Neurological Exam Neurological Exam: Alert, Awake, Oriented x3 - Psychiatric Exam Psychiatric exam: Normal Affect, Normal Mood Assessment and Plan - Assessment and Plan (Free Text) Assessment: 66 y/o male with PMH of DM, HTN, HLD, PVD and Charcot is seen at bedside for left foot 4th interspace ulceration. Plan: Patient seen and evaluated at bedside Patient discussed in details with attending Dr. Santamaria Chart, labs and vitals reviewed- afebrile, WBC 6.8 Wound cx on 10/27- Citrobacter, Enterococcus Faecalis (sensitive to Vancomycin and Zosyn) Betadine, DSD, JUSTIN applied to L foot ulcer Cont IV abx through peripheral IV - Vanco, Zosyn US - no evidence of DVT CT results: No evidence of OM Blood culture (Prelim) - no growth after 4 days Patient to receive PICC line today Patient is stable from podiatry standpoint Patient to follow up in the wound care center with Dr. Santamaria
[2016-11-08 07:29] LABS: MEAN CORPUSCULAR HEMOGLOBIN 28.2 pg (27.0-31.0); MEAN CORPUSCULAR HGB CONC 33.9 g/dL (33.0-37.0); RED CELL DISTRIBUTION WIDTH 13.5 % (11.5-14.5); WHITE BLOOD COUNT 6.8 K/uL (4.8-10.8)
[2016-11-08 07:39] LABS: BLOOD UREA NITROGEN 11 mg/dl (9-20); CALCIUM 8.8 mg/dL (8.4-10.2); CARBON DIOXIDE 27 mmol/L (22-30); CHLORIDE 105 mmol/L (98-107); GFR AFRICAN-AMERICAN > 60; GLUCOSE,RANDOM 98 mg/dL (75-110); POTASSIUM 3.5 MMOL/L (3.6-5.0); SODIUM 146 mmol/l (132-148)
[2016-11-08] MEDS: Insulin Regular 100 units/ml SC SCH ×3 (07:56→16:53)
[2016-11-08 08:00] LABS: PARTIAL THROMBOPLASTIN TIME 32.6 Seconds (25.6-37.1)
[2016-11-08] MEDS ORDERED: Potassium Chloride 20 mEq ER Tab PO ONE (08:00)
[2016-11-08 08:19] LABS: IRON 40 ug/dL (49-181)
--- NOTE | 2016-11-08 08:24 | CP.PCM.PN ---
Subjective - Date & Time of Evaluation Date of Evaluation: 11/08/16 Time of Evaluation: 07:55 - Subjective Subjective: 66 yo male seen and examined at bedside this AM. Had uneventful last night. Blisters on left arm is healing. Reports itching in left groin has improved. Denies rash in the other parts of the body. Had regular BM and voiding. Tolerating PO intact. Denies nausea, vomiting, abdominal pain, dysuria, fever, chills, chest pain,dyspnea, dizziness or headache. Pt will get PICC line today. Objective - Vital Signs/Intake and Output Vital Signs (last 24 hours): Temp Pulse Resp BP Pulse Ox 98.6 F 62 19 132/68 97 11/08/16 00:44 11/08/16 00:44 11/08/16 00:44 11/08/16 00:44 11/08/16 00:44 - Medications Medications: Current Medications Acetaminophen (Tylenol 325mg Tab) 650 mg PO Q4 PRN PRN Reason: Fever >100.4 F Last Admin: 11/04/16 20:50 Dose: 650 mg Albuterol/Ipratropium (Duoneb 3 Mg/0.5 Mg (3 Ml) Ud) 3 ml INH RQ6 PRN PRN Reason: Shortness of Breath Last Admin: 11/05/16 23:25 Dose: 3 ml Aspirin (Ecotrin) 81 mg PO DAILY [facility] Last Admin: 11/07/16 09:31 Dose: 81 mg Camphor/Menthol (Bengay) 1 applic TOP QID PRN PRN Reason: Other Clopidogrel Bisulfate (Plavix) 75 mg PO DAILY [facility] Last Admin: 11/07/16 09:36 Dose: 75 mg Dextrose (Dextrose 50% Inj) 0 ml IV STAT PRN; Protocol PRN Reason: Hyglycemia Protocol Dextrose (Glutose 15) 0 gm PO ONCE PRN; Protocol PRN Reason: Hypoglycemia Protocol Diphenhydramine HCl (Benadryl) 25 mg PO Q6 PRN PRN Reason: Itching / Pruritus Enoxaparin Sodium (Lovenox) 120 mg SC Q12 INDIRA PRN Reason: Protocol Last Admin: 11/07/16 21:00 Dose: 120 mg Furosemide (Lasix) 20 mg PO QOTHERDAY [facility] Last Admin: 11/07/16 09:32 Dose: 20 mg Gabapentin (Neurontin) 300 mg PO TID PRN PRN Reason: Neuropathic pain Glucagon (Glucagen Diagnostic Kit) 0 mg IM STAT PRN; Protocol PRN Reason: Hypoglycemia Protocol Guaifenesin (Mucinex La) 600 mg PO Q12 [facility] Last Admin: 11/07/16 21:00 Dose: 600 mg Home Med (Brimonidine Tartrate/Timolol [Combigan 0.2%-0.5% Eye Drops]) 1 drop EACHEYE BID [facility] Last Admin: 11/07/16 17:57 Dose: 1 drop Home Med (Travoprost [Travatan Z]) 1 drop EACHEYE HS [facility] Last Admin: 11/07/16 21:00 Dose: 1 drop Hydrochlorothiazide (Microzide) 12.5 mg PO DAILY [facility] Last Admin: 11/07/16 09:32 Dose: 12.5 mg Hydrocortisone (Cortizone 1% Cream) 1 applic TOP BID [facility] Last Admin: 11/07/16 18:07 Dose: 1 applic Piperacillin Sod/Tazobactam (Sod 3.375 gm/ Sodium Chloride) 100 mls @ 100 mls/ hr IVPB Q8 [facility] Last Admin: 11/08/16 00:57 Dose: 100 mls/hr Vancomycin HCl 1 gm/ Sodium (Chloride) 250 mls @ 166.667 mls/hr IVPB BID@0900, 2100 [facility] Last Admin: 11/06/16 09:33 Dose: 166.667 mls/hr Insulin Detemir (Levemir) 45 units SC AMHS [facility] Last Admin: 11/07/16 21:50 Dose: 45 units Insulin Human Regular (Humulin R) 0 units SC ACHS [facility] PRN Reason: Protocol Last Admin: 11/08/16 07:56 Dose: Not Given Lactobacillus Acidophilus (Bacid Acidophilus) 1 cap PO BID [facility] Last Admin: 11/07/16 17:57 Dose: 1 cap Losartan Potassium (Cozaar) 50 mg PO DAILY [facility] Last Admin: 11/07/16 09:30 Dose: 50 mg Nystatin (Mycostatin Cream) 1 applic TOP TID [facility] Last Admin: 11/07/16 18:15 Dose: 1 applic Silver Sulfadiazine (Silvadene 1% 20 Gm) 0 ea TOP BID [facility] Last Admin: 11/07/16 18:06 Dose: 1 applic - Labs Labs: 11/08/16 06:15 11/08/16 06:15 PT 12.3 Seconds (9.8-13.1) 11/08/16 07:10 INR 1.2 (0.9-1.2) 11/08/16 07:10 APTT 32.6 Seconds (25.6-37.1) 11/08/16 07:10 - Constitutional Appears: Well, No Acute Distress, Other (Obese) - Head Exam Head Exam: NORMAL INSPECTION - Eye Exam Eye Exam: Normal appearance - ENT Exam ENT Exam: Mucous Membranes Moist - Neck Exam Neck Exam: Normal Inspection - Respiratory Exam Respiratory Exam: Clear to Ausculation Bilateral, NORMAL BREATHING PATTERN. absent: Rales, Rhonchi, Wheezes - Cardiovascular Exam Cardiovascular Exam: REGULAR RHYTHM, RRR, +S1, +S2 - GI/Abdominal Exam GI & Abdominal Exam: Soft, Normal Bowel Sounds. absent: Tenderness - Extremities Exam Extremities Exam: absent: Calf Tenderness Additional comments: mild right pedal edema, +pedal pulse. Left foot is covered with triston wrap. no discharge/bleeding seen. NVI. - Neurological Exam Neurological Exam: Alert, Awake, Oriented x3 - Psychiatric Exam Psychiatric exam: Normal Affect, Normal Mood - Skin Additional comments: Left arm: healing blisters on left upper arm around the PICC insertion area. no surrounding erythema, swelling or discharge seen. Left groin: mild erythematous multiple circular rash on left inner thigh. Improving. no signs of infection. Assessment and Plan - Assessment and Plan (Free Text) Assessment: Assessment and plan: 66 y/o M with a PMHx of DM, HTN, HLD, PVD, CVA and MRSA right foot infection admitted for fever s/p PICC for Left foot diabetic ulcer. 1. Left foot ulcer - afebrile, no leukocytosis - Continue IV Zosyn IVPB Q12H - Vancomycin 1000 mg IVPB Q12 was stopped on 11/06/16 due to elevated vanc trough. - Vanc trough this AM: 5.5 - Restart Vancomycin 100 mg IVPD BID this morning. - receiving abx via peripheral IV. - Blood culture: neg x 3. - Infectious Disease on board - Podiatry on board. - PICC line removed on 11/04/16 w/ no complication. - ESR 97 -Procalcinonin 2.57 -PICC line placement today. 2. Hypokalemia: -Asymptomatic -K:3.5 -KCl 20 meq -AM labs. 3. Anemia -Hb 10.2 -Iron 40/TIBC 239/%Sat 17 -Start feosol 325 bid 3. Cephalic vein thrombus: -CT left upper extremity: evidence of occlusive thrombus involving short segment of left cephalic vein near the antecubital fossa. -Hold Lovenox 120 mg SC BID today for PICC line placement 4. Loose Stool( Resolved) -C diff toxin negative. 5. Diabetes Mellitus complicated w/ Neuropathy -controlled - Gabapentin 300 mg TID - Metformin 1000mg BID held - Humalog 100unit/mL, held - Levemir 100unit/mL, 45u AMHS - Atorvastatin 80mg PO HS - SSI, accuchecks 6. HTN - Losartan 50mg PO daily - HCTZ 12.5mg PO daily -lasix 20mg qod 7. Hx of CVA - ASA 81 mg daily - Plavix 75mg PO daily - Travaprost ophthalmic solution. - Combigan 0.2-0.5% 8. Rash in left inner thigh -Improving -hydrocortisone 1% BID -nystatin TID 9. Blister in left upper thigh -healing -continue with silvadene 10. DVT Prophylaxis -hold for PICC line.
[2016-11-08] MEDS: Lactobacillus Acidophilus 500 MU Cap PO SCH ×2 (08:53→16:51)
[2016-11-08] MEDS: Patient's Own Med (Brimonidine Tartrate/Timolol [Combigan 0.2%-0.5% Eye Drops] 1 DROP) EACHEYE SCH (08:54)
[2016-11-08] MEDS: guaiFENesin 600 mg ER Tab PO SCH (08:56)
[2016-11-08] MEDS: Insulin Detemir 100 Units/ml Inj SC SCH (09:00)
[2016-11-08] MEDS ORDERED: Lidocaine 1% Inj (20ml) ONE (11:36)
--- NOTE | 2016-11-08 12:15 | PCM.SURG1 ---
Surgeon's Initial Post Op Note - Surgeon's Notes Surgeon: Carlos Alberto Vital MD Healthcare Architect: NONE Type of Anesthesia: Local Pre-Operative Diagnosis: Ulcer Operative Findings: Patent right brachial vein. Post-Operative Diagnosis: Ulcer Operation Performed: Single lumen picc placement right brachial vein, 42 cm. Tip is in the SVC. Specimen/Specimens Removed: nONE Estimated Blood Loss: EBL {In ML}: 2 Blood Products Given: N/A Drains Used: No Drains Post-Op Condition: Fair Date of Surgery/Procedure: 11/08/16 Time of Surgery/Procedure: 12:10
--- NOTE | 2016-11-08 13:23 | VASCULAR ---
PROCEDURE: Date of procedure: 11/08/2016 Procedure: 1. Placement of a right arm PICC with ultrasound and fluoroscopic guidance, CPT 65110 2. PICC tip confirmation with spot radiograph and is in the superior vena cava Medications: 3 cc 1 percent lidocaine Total Fluoro time: 5 seconds Radiation: 0.92 MGy EBL: 2 cc HISTORY: Infection requiring long-term IV antibiotics TECHNIQUE: Following informed consent and procedure time-out, the patient was placed supine on the interventional table and the right arm prepped and draped in the usual sterile fashion. Ultrasound showed a patent and compressible right basilic vein. After the skin was anesthetized with lidocaine, the basilic vein was accessed with micro micropuncture technique using ultrasound guidance. A guidewire was then advanced under fluoroscopic guidance into the superior vena cava. An image documenting ultrasound guidance for vascular access was permanently saved. The length of the single-lumen 4 [place] PICC was trimmed to 42 centimeters and advanced through a peel-away sheath. The PICC was position with tip of PICC confirm a spot radiograph the superior vena cava. The PICC was secured to the patient's skin. The PICC was flushed. A biopatch and sterile dressing was applied. IMPRESSION: Placement of a single-lumen 4 Argentine PICC trimmed to 42 centimeters via right basilic vein. The tip of the PICC is confirmed with spot radiograph and is in the superior vena cava.
--- NOTE | 2016-11-08 15:13 | CP.PCM.PN ---
Subjective - Date & Time of Evaluation Date of Evaluation: 11/08/16 Time of Evaluation: 13:00 - Subjective Subjective: ID note- Pt. seen and examined today. denies any fever or chills. has new picc line placed today in right arm. states he was told he is going to rehab to complete his IV abx therapy and get PT. Objective - Vital Signs/Intake and Output Vital Signs (last 24 hours): Temp Pulse Resp BP Pulse Ox 98.6 F 62 16 154/82 H 99 11/08/16 12:00 11/08/16 12:28 11/08/16 12:28 11/08/16 12:28 11/08/16 12:00 - Medications Medications: Current Medications Acetaminophen (Tylenol 325mg Tab) 650 mg PO Q4 PRN PRN Reason: Fever >100.4 F Last Admin: 11/04/16 20:50 Dose: 650 mg Albuterol/Ipratropium (Duoneb 3 Mg/0.5 Mg (3 Ml) Ud) 3 ml INH RQ6 PRN PRN Reason: Shortness of Breath Last Admin: 11/05/16 23:25 Dose: 3 ml Aspirin (Ecotrin) 81 mg PO DAILY [facility] Last Admin: 11/08/16 08:56 Dose: 81 mg Camphor/Menthol (Bengay) 1 applic TOP QID PRN PRN Reason: Other Clopidogrel Bisulfate (Plavix) 75 mg PO DAILY [facility] Last Admin: 11/08/16 09:08 Dose: 75 mg Dextrose (Dextrose 50% Inj) 0 ml IV STAT PRN; Protocol PRN Reason: Hyglycemia Protocol Dextrose (Glutose 15) 0 gm PO ONCE PRN; Protocol PRN Reason: Hypoglycemia Protocol Diphenhydramine HCl (Benadryl) 25 mg PO Q6 PRN PRN Reason: Itching / Pruritus Docusate Sodium (Colace) 200 mg PO HS INDIRA Enoxaparin Sodium (Lovenox) 120 mg SC Q12 INDIR[facility] PRN Reason: Protocol Last Admin: 11/07/16 21:00 Dose: 120 mg Ferrous Sulfate (Feosol) 325 mg PO BID INDIR[facility] Furosemide (Lasix) 20 mg PO QOTHERDAY [facility] Last Admin: 11/07/16 09:32 Dose: 20 mg Gabapentin (Neurontin) 300 mg PO TID PRN PRN Reason: Neuropathic pain Last Admin: 11/08/16 08:56 Dose: 300 mg Glucagon (Glucagen Diagnostic Kit) 0 mg IM STAT PRN; Protocol PRN Reason: Hypoglycemia Protocol Guaifenesin (Mucinex La) 600 mg PO Q12 [facility] Last Admin: 11/08/16 08:56 Dose: 600 mg Home Med (Brimonidine Tartrate/Timolol [Combigan 0.2%-0.5% Eye Drops]) 1 drop EACHEYE BID [facility] Last Admin: 11/08/16 08:54 Dose: 1 drop Home Med (Travoprost [Travatan Z]) 1 drop EACHEYE HS [facility] Last Admin: 11/07/16 21:00 Dose: 1 drop Hydrochlorothiazide (Microzide) 12.5 mg PO DAILY [facility] Last Admin: 11/08/16 08:57 Dose: 12.5 mg Hydrocortisone (Cortizone 1% Cream) 1 applic TOP BID [facility] Last Admin: 11/08/16 09:06 Dose: 1 applic Piperacillin Sod/Tazobactam (Sod 3.375 gm/ Sodium Chloride) 100 mls @ 100 mls/ hr IVPB Q8 [facility] Last Admin: 11/08/16 09:09 Dose: 100 mls/hr Vancomycin HCl 1 gm/ Sodium (Chloride) 250 mls @ 166.667 mls/hr IVPB BID@0900, 2100 [facility] Last Admin: 11/06/16 09:33 Dose: 166.667 mls/hr Insulin Detemir (Levemir) 45 units SC AMHS [facility] Last Admin: 11/08/16 09:00 Dose: 45 units Insulin Human Regular (Humulin R) 0 units SC ACHS [facility] PRN Reason: Protocol Last Admin: 11/08/16 13:03 Dose: 3 units Lactobacillus Acidophilus (Bacid Acidophilus) 1 cap PO BID [facility] Last Admin: 11/08/16 08:53 Dose: 1 cap Losartan Potassium (Cozaar) 50 mg PO DAILY [facility] Last Admin: 11/08/16 08:57 Dose: 50 mg Nystatin (Mycostatin Cream) 1 applic TOP TID [facility] Last Admin: 11/08/16 13:02 Dose: 1 applic Silver Sulfadiazine (Silvadene 1% 50 Gm) 0 applic TOP BID [facility] - Labs Labs: - Constitutional Appears: No Acute Distress - Head Exam Head Exam: ATRAUMATIC - Eye Exam Eye Exam: EOMI - ENT Exam ENT Exam: Normal Oropharynx - Neck Exam Neck Exam: Full ROM - Respiratory Exam Respiratory Exam: Clear to Ausculation Bilateral, NORMAL BREATHING PATTERN - Cardiovascular Exam Cardiovascular Exam: RRR, +S1, +S2 - GI/Abdominal Exam GI & Abdominal Exam: Soft, Normal Bowel Sounds Additional comments: NT, ND - Extremities Exam Additional comments: b/l LE erythema and warmth has resolved. left foot with left fourth interspace small opening but no more maldoro, scant serous discharge, edema much less - Neurological Exam Neurological Exam: Alert, Awake, Oriented x3 - Additional Findings Additional findings: Laboratory Results - last 72 hr 11/05/16 11/05/16 11/06/16 16:05 21:14 05:15 WBC 7.4 RBC 3.48 L Hgb 9.7 L Hct 29.3 L MCV 84.2 MCH 28.0 MCHC 33.2 RDW 13.9 Plt Count 212 Retic Count PT INR APTT Sodium Potassium Chloride Carbon Dioxide Anion Gap BUN Creatinine Est GFR ( Amer) Est GFR (Non-Af Amer) POC Glucose (mg/dL) 236 H 297 H Random Glucose Calcium Iron TIBC % Saturation Ferritin Lactate Dehydrogenase Vancomycin Trough C. difficile Ag & Toxin 11/06/16 11/06/16 11/06/16 05:15 05:26 13:46 WBC RBC Hgb Hct MCV MCH MCHC RDW Plt Count Retic Count PT INR APTT Sodium 140 Potassium 3.4 L Chloride 106 Carbon Dioxide 23 Anion Gap 14 BUN 21 H Creatinine 1.4 Est GFR ( Amer) > 60 Est GFR (Non-Af Amer) 51 POC Glucose (mg/dL) 119 H 210 H Random Glucose 104 Calcium 8.3 L Iron TIBC % Saturation Ferritin Lactate Dehydrogenase Vancomycin Trough C. difficile Ag & Toxin 11/06/16 11/06/16 11/06/16 14:00 16:28 21:13 WBC RBC Hgb Hct MCV MCH MCHC RDW Plt Count Retic Count PT INR APTT Sodium Potassium Chloride Carbon Dioxide Anion Gap BUN Creatinine Est GFR ( Amer) Est GFR (Non-Af Amer) POC Glucose (mg/dL) 184 H 202 H Random Glucose Calcium Iron TIBC % Saturation Ferritin Lactate Dehydrogenase Vancomycin Trough C. difficile Ag & Toxin Negative 11/07/16 11/07/16 11/07/16 05:40 05:40 05:40 WBC 7.2 RBC 3.56 L Hgb 9.8 L Hct 30.0 L MCV 84.1 MCH 27.7 MCHC 32.9 L RDW 13.7 Plt Count 232 Retic Count PT 12.6 INR 1.2 APTT 34.0 Sodium 143 Potassium 3.5 L Chloride 105 Carbon Dioxide 25 Anion Gap 17 BUN 14 Creatinine 1.2 Est GFR ( Amer) > 60 Est GFR (Non-Af Amer) > 60 POC Glucose (mg/dL) Random Glucose 116 H Calcium 8.7 Iron TIBC % Saturation Ferritin Lactate Dehydrogenase Vancomycin Trough C. difficile Ag & Toxin 11/07/16 11/07/16 11/07/16 05:57 07:00 11:53 WBC RBC Hgb Hct MCV MCH MCHC RDW Plt Count Retic Count PT INR APTT Sodium Potassium Chloride Carbon Dioxide Anion Gap BUN Creatinine Est GFR ( Amer) Est GFR (Non-Af Amer) POC Glucose (mg/dL) 121 H 181 H Random Glucose Calcium Iron TIBC % Saturation Ferritin Lactate Dehydrogenase Vancomycin Trough 11.6 H C. difficile Ag & Toxin 11/07/16 11/07/16 11/08/16 15:51 21:13 06:09 WBC RBC Hgb Hct MCV MCH MCHC RDW Plt Count Retic Count PT INR APTT Sodium Potassium Chloride Carbon Dioxide Anion Gap BUN Creatinine Est GFR ( Amer) Est GFR (Non-Af Amer) POC Glucose (mg/dL) 330 H 351 H 105 Random Glucose Calcium Iron TIBC % Saturation Ferritin Lactate Dehydrogenase Vancomycin Trough C. difficile Ag & Toxin 11/08/16 11/08/16 11/08/16 06:15 06:15 06:15 WBC 6.8 RBC 3.61 L Hgb 10.2 L Hct 30.0 L MCV 83.0 MCH 28.2 MCHC 33.9 RDW 13.5 Plt Count 286 Retic Count PT INR APTT Sodium 146 Potassium 3.5 L Chloride 105 Carbon Dioxide 27 Anion Gap 18 BUN 11 Creatinine 1.2 Est GFR ( Amer) > 60 Est GFR (Non-Af Amer) > 60 POC Glucose (mg/dL) Random Glucose 98 Calcium 8.8 Iron 38 L TIBC % Saturation Ferritin 297.0 Lactate Dehydrogenase Vancomycin Trough C. difficile Ag & Toxin 11/08/16 11/08/16 11/08/16 06:15 06:15 06:15 WBC RBC Hgb Hct MCV MCH MCHC RDW Plt Count Retic Count 1.4 PT INR APTT Sodium Potassium Chloride Carbon Dioxide Anion Gap BUN Creatinine Est GFR ( Amer) Est GFR (Non-Af Amer) POC Glucose (mg/dL) Random Glucose Calcium Iron 40 L TIBC 239 L % Saturation 17 L Ferritin Lactate Dehydrogenase 498 Vancomycin Trough C. difficile Ag & Toxin 11/08/16 11/08/16 11/08/16 06:15 07:10 10:57 WBC RBC Hgb Hct MCV MCH MCHC RDW Plt Count Retic Count PT 12.3 INR 1.2 APTT 32.6 Sodium Potassium Chloride Carbon Dioxide Anion Gap BUN Creatinine Est GFR ( Amer) Est GFR (Non-Af Amer) POC Glucose (mg/dL) 288 H Random Glucose Calcium Iron TIBC % Saturation Ferritin Lactate Dehydrogenase Vancomycin Trough 5.5 C. difficile Ag & Toxin Microbiology 11/03/16 10:50 Blood Blood Culture - Final NO GROWTH AFTER 5 DAYS 11/03/16 10:50 Blood Gram Stain - Final TEST NOT PERFORMED 11/03/16 10:35 Blood Blood Culture - Final NO GROWTH AFTER 5 DAYS 11/03/16 10:35 Blood Gram Stain - Final TEST NOT PERFORMED 11/03/16 19:17 Blood-Thru Central Line Blood Culture - Preliminary NO GROWTH AFTER 4 DAYS 11/03/16 13:00 Urine,Clean Catch Urine Culture - Final No Growth (<1,000 CFU/ML) Accession No. : [id number] Patient Name / ID : LOREN Don / [id number] Exam Date : 11/05/2016 10:39:09 ( Approved ) Study Comment : Sex / Age : M / 66Y Creator : Linda COFFMAN MD Dictator : Linda COFFMAN MD Service Bar Cashier : Senior Cobol Developer : Linda COFFMAN MD Approver2 : Report Date : 11/06/2016 16:29:07 My Comment : PROCEDURE: CT scan of the left ankle joint without contrast HISTORY: rule out osteo COMPARISON: Plain radiographs from 10/27/2016. TECHNIQUE: Contiguous axial images of the left ankle were obtained. Coronal and sagittal reformats were generated. This CT exam was performed using one or more of the following dose reduction techniques: Automated exposure control, adjustment of the mA and/or kV according to patient size, and/or use of iterative reconstruction technique. FINDINGS: BONES: Status post fusion of the subtalar and tarsometatarsal joints with along metallic screw traversing through talus, navicular, medial cuneiform and 1st metatarsal. There is no evidence of lucency surrounding the metallic screw to suggest loosening. There is no screw fracture. There are multiple osseous fragments in the region of the ankle joint and intertarsal joints. There is severe degenerative osteoarthrosis in the talocalcaneal, talonavicular and intertarsal joints with subarticular cystic changes. There is no evidence of bone erosion or destruction. A screw track is identified in the calcaneus. There is a probable chronic fracture deformity in the anterior talus. There is a prominent plantar calcaneal spur and dorsal calcaneal enthesophyte. There is a prominent stieda process. There is a small joint effusion. SOFT TISSUES: There is a 2.2 x 2.7 x 2.3 cm loculated collection in the plantar soft tissues of the anterior humeral. There is diffuse subcutaneous edema in the distal leg, ankle and foot. IMPRESSION: 1. 2.2 x 2.7 x 2.3 cm hematoma versus complex fluid collection in the plantar soft tissues of the anterior humeral. Diffuse subcutaneous edema in the ankle and foot, worse in the heel could represent cellulitis. Postsurgical changes and deformity in an around the talonavicular joint. No definite evidence of erosion or bone destruction to suggest acute osteomyelitis. However MRI is more sensitive for evaluation of early marrow changes. 2. 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 3.Status post fusion of the talonavicular, intertarsal and tarsometatarsal joints. No evidence of hardware complications. Screw tract is also the identified in the calcaneus. Assessment and Plan (1) Fever Status: Acute (2) Cellulitis and abscess of foot Status: Acute (3) Thrombus Status: Acute - Assessment and Plan (Free Text) Assessment: A/P- 66 year old amle with multiple medical conditions including DM II, HTN, CVA recently d/c for left foot cellulitis secondary to 4th toe interspace ulcer who was admitted with fever. remains afebrile normal wbc blood cx- neg x 3 urine cx- neg has new picc line today on right arm LE Ct report noted, no acute OM as per report plan-- has completed 6 days of IV zosyn and vanco on this admission so far. advise to d/c zosyn and re-start pt. on ceftriaxone since his last admission wound cx citrobacter was sensitive to this and is easier administration and good bone penetration. continue with IV vancomycin for the e.fecalis from previous wound cx. will most likely need [facility]entiary IV abx for the left foot nonhealing wound. advise another 3 weeks 9 vanco and ceftriaxone) keep vanco trough <15. monitor creatinine while on vanco. as per podiatry no surgical intervention at this time. advise for patient to have close f/u with podiatry and wound center as outpatient. all above d/w patient at length and he verbalizes full understanding of all above. all above d/w DR.Pierre Baig at length.
[2016-11-08] MEDS ORDERED: Silver Sulfadiazine 1% CREAM (50 gm) TOP SCH (17:00)
[2016-11-08 17:02] VITALS: BP 134/77; PULSE 64; RESP 20; TEMP 97.9; O2SAT 97
[2016-11-09] MEDS ORDERED: cefTRIAXone 2 GM in Sodium Chloride 0.9% 100 ML IVPB SCH (09:00)
--- NOTE | 2016-11-09 15:29 | CP.PCM.DIS ---
Provider - Provider Date of Admission: 11/04/16 08:16 Attending physician: Michael Keita MD Primary care physician: Dr. Leonardo Conner at [facility] Consults: ID: Dr. Roy Podiatry: Dr. Santamaria IR: Dr. Vital Time Spent in preparation of Discharge (in minutes): 40 Diagnosis - Discharge Diagnosis (1) Fever Status: Resolved (2) Cellulitis of right foot Status: Chronic Hospital Course - Lab Results Lab Results: Micro Results 11/03/16 19:17 Blood-Thru Central Line Blood Culture - Final NO GROWTH AFTER 5 DAYS 11/03/16 19:17 Blood-Thru Central Line Gram Stain - Final TEST NOT PERFORMED 11/03/16 10:50 Blood Blood Culture - Final NO GROWTH AFTER 5 DAYS 11/03/16 10:50 Blood Gram Stain - Final TEST NOT PERFORMED 11/03/16 10:35 Blood Blood Culture - Final NO GROWTH AFTER 5 DAYS 11/03/16 10:35 Blood Gram Stain - Final TEST NOT PERFORMED 11/03/16 13:00 Urine,Clean Catch Urine Culture - Final No Growth (<1,000 CFU/ML) Most Recent Lab Values WBC 6.8 K/uL (4.8-10.8) 11/08/16 06:15 RBC 3.61 Mil/uL (4.40-5.90) L 11/08/16 06:15 Hgb 10.2 g/dL (12.0-18.0) L 11/08/16 06:15 Hct 30.0 % (35.0-51.0) L 11/08/16 06:15 MCV 83.0 fl (80.0-94.0) 11/08/16 06:15 MCH 28.2 pg (27.0-31.0) 11/08/16 06:15 MCHC 33.9 g/dL (33.0-37.0) 11/08/16 06:15 RDW 13.5 % (11.5-14.5) 11/08/16 06:15 Plt Count 286 K/uL (130-400) 11/08/16 06:15 MPV 8.7 fl (7.2-11.7) 11/04/16 07:00 Neut % (Auto) 83.8 % (50.0-75.0) H 11/04/16 07:00 Lymph % (Auto) 9.3 % (20.0-40.0) L 11/04/16 07:00 [place] % (Auto) 6.5 % (0.0-10.0) 11/04/16 07:00 Eos % (Auto) 0.0 % (0.0-4.0) 11/04/16 07:00 Baso % (Auto) 0.4 % (0.0-2.0) 11/04/16 07:00 Neut # 5.3 K/uL (1.8-7.0) 11/04/16 07:00 Lymph # 0.6 K/uL (1.0-4.3) L 11/04/16 07:00 [place] # 0.4 K/uL (0.0-0.8) 11/04/16 07:00 Eos # 0.0 K/uL (0.0-0.7) 11/04/16 07:00 Baso # 0.0 K/uL (0.0-0.2) 11/04/16 07:00 Neutrophils % (Manual) 80 % (42-75) H 11/04/16 07:00 Band Neutrophils % 3 % (0-2) H 11/04/16 07:00 Lymphocytes % (Manual) 9 % (20-50) L 11/04/16 07:00 Monocytes % (Manual) 7 % (0-10) 11/04/16 07:00 Basophils % (Manual) 1 % (0-2) 11/04/16 07:00 Platelet Estimate Normal (NORMAL) 11/04/16 07:00 Large Platelets Present 11/04/16 07:00 Poikilocytosis (manual Slight 11/04/16 07:00 Anisocytosis (manual) Slight 11/04/16 07:00 Tear Drop Cells Slight 11/04/16 07:00 Ovalocytes Slight 11/04/16 07:00 ESR 97 mm/hr (0-20) H 11/05/16 08:30 Retic Count 1.4 % (0.5-1.5) 11/08/16 06:15 Haptoglobin 396 mg/dL (43-212) H 11/08/16 06:15 PT 12.3 Seconds (9.8-13.1) 11/08/16 07:10 INR 1.2 (0.9-1.2) 11/08/16 07:10 APTT 32.6 Seconds (25.6-37.1) 11/08/16 07:10 pO2 28 mm/Hg (30-55) L 11/03/16 10:20 VBG pH 7.44 (7.32-7.43) H 11/03/16 10:20 VBG pCO2 43 mmHg (40-60) 11/03/16 10:20 VBG HCO3 27.5 mmol/L 11/03/16 10:20 VBG Total CO2 30.5 mmol/L (22-28) H 11/03/16 10:20 VBG O2 Sat (Calc) 62.2 % (40-65) 11/03/16 10:20 VBG Base Excess 4.5 mmol/L (0.0-2.0) H 11/03/16 10:20 VBG Potassium 3.7 mmol/L (3.6-5.2) 11/03/16 10:20 A-a O2 Difference 68.0 mm/Hg 11/03/16 10:20 Sodium 131.0 mmol/L (132-148) L 11/03/16 10:20 Chloride 96.0 mmol/L (98-107) L 11/03/16 10:20 Glucose 168 mg/dL (75-110) H 11/03/16 10:20 Lactate 1.4 mmol/L (0.7-2.1) 11/03/16 10:20 FiO2 21.0 % 11/03/16 10:20 Crit Value Called To Davey kohli 11/03/16 10:20 Crit Value Called By 15 11/03/16 10:20 Crit Value Read Back Y 11/03/16 10:20 Blood Gas Notified Time 1105 11/03/16 10:20 Sodium 146 mmol/l (132-148) 11/08/16 06:15 Potassium 3.5 MMOL/L (3.6-5.0) L 11/08/16 06:15 Chloride 105 mmol/L (98-107) 11/08/16 06:15 Carbon Dioxide 27 mmol/L (22-30) 11/08/16 06:15 Anion Gap 18 (10-20) 11/08/16 06:15 BUN 11 mg/dl (9-20) 11/08/16 06:15 Creatinine 1.2 mg/dL (0.8-1.5) 11/08/16 06:15 Est GFR ( Amer) > 60 11/08/16 06:15 Est GFR (Non-Af Amer) > 60 11/08/16 06:15 POC Glucose (mg/dL) 243 mg/dL (65-110) H 11/08/16 15:52 Random Glucose 98 mg/dL (75-110) 11/08/16 06:15 Calcium 8.8 mg/dL (8.4-10.2) 11/08/16 06:15 Iron 40 ug/dL (49-181) L 11/08/16 06:15 TIBC 239 ug/dL (250-450) L 11/08/16 06:15 % Saturation 17 % (20-55) L 11/08/16 06:15 Ferritin 297.0 ng/mL 11/08/16 06:15 Total Bilirubin 0.5 mg/dl (0.2-1.3) 11/03/16 10:35 AST 53 U/L (17-59) 11/03/16 10:35 ALT 42 U/L (21-72) 11/03/16 10:35 Alkaline Phosphatase 106 U/L (38-126) 11/03/16 10:35 Lactate Dehydrogenase 498 U/L (313-618) 11/08/16 06:15 Total Protein 7.3 G/DL (6.3-8.2) 11/03/16 10:35 Albumin 3.8 g/dL (3.5-5.0) 11/03/16 10:35 Globulin 3.5 gm/dL (2.2-3.9) 11/03/16 10:35 Albumin/Globulin Ratio 1.1 (1.0-2.1) 11/03/16 10:35 Procalcitonin 2.57 NG/ML (0.19-0.49) H 11/04/16 15:30 Venous Blood Potassium 3.7 mmol/L (3.6-5.2) 11/03/16 10:20 Urine Color Yellow (YELLOW) 11/03/16 13:00 Urine Clarity Clear (Clear) 11/03/16 13:00 Urine pH 6.0 (5.0-8.0) 11/03/16 13:00 Ur Specific [place] 1.016 (1.003-1.030) 11/03/16 13:00 Urine Protein 100 mg/dL (NEGATIVE) 11/03/16 13:00 Urine Glucose (UA) Neg mg/dL (Normal) 11/03/16 13:00 Urine Ketones Negative mg/dL (NEGATIVE) 11/03/16 13:00 Urine Blood Negative (NEGATIVE) 11/03/16 13:00 Urine Nitrate Negative (NEGATIVE) 11/03/16 13:00 Urine Bilirubin Negative (NEGATIVE) 11/03/16 13:00 Urine Urobilinogen 0.2-1.0 mg/dL (0.2-1.0) 11/03/16 13:00 Ur Leukocyte Esterase Neg [place]/uL (Negative) 11/03/16 13:00 Urine RBC (Auto) 4 /hpf (0-3) H 11/03/16 13:00 Urine Microscopic WBC 2 /hpf (0-5) 11/03/16 13:00 Ur Squamous Epith Cells 3 /hpf (0-5) 11/03/16 13:00 Urine Bacteria Mod (<OCC) H 11/03/16 13:00 Vancomycin Trough 5.5 ug/mL (5.0-10.0) 11/08/16 06:15 C. difficile Ag & Toxin Negative (NEGATIVE) 11/06/16 14:00 - Hospital Course Hospital Course: 66 y/o male with PMHx CVA, TIA, DM, HTN, HLD, PVD was admitted on 11/03/16 for fever ( Tmax 101.5 F) s/p PICC line inserted on 10/31/16 for left foot diabetic ulcer for fpc IV abx use. ID and podiatry were consulted throughout the patient hospital stay. Pt had sepsis work up done. Duplex extremity of left upper extremity on 11/03/16 showed evidence of occlusive thrombus involving short segment of the left cephalic vein near the antecubital fossa. CT of the lower extremity did not show acute osteomyelitis. PICC was removed on 11/04/16 w/ o complication. Blood cx x 3 were negative. PICC line was placed on right arm on 11/08/16. Pt was discharged to [facility] under care of Dr. Jhaveri. with PICC line to received IV Vancomycin 1000 mg BID x 3 weeks and Ceftriaxone 2 gm daily x 3 weeks as recommended by ID. Spoke to Yossi triana [facility] regarding IV abx : change from IV zosyn to ceftriaxone 2 gm daily for 3 weeks. Lovenox was changed to Apixaban 10 mg PO BID 7 Days and after that Apixaban 5 mg PO BID 90 Days. Patient is to f/u with wound care center with Dr. Santamaria. Scheduled for f/u with his primary care physician on 12/01/16 at 8:40 am. Discharge Exam - Head Exam Head Exam: ATRAUMATIC - Eye Exam Eye Exam: Normal appearance - ENT Exam ENT Exam: Mucous Membranes Moist - Respiratory Exam Respiratory Exam: Clear to PA & Lateral. absent: Rales, Rhonchi, Wheezes - Cardiovascular Exam Cardiovascular Exam: REGULAR RHYTHM, RRR, +S1, +S2 - GI/Abdominal Exam GI & Abdominal Exam: Normal Bowel Sounds, Soft. absent: Tenderness - Extremities Exam Extremities exam: pedal pulses present Additional comments: Dressing intact in left foot. Dressing looks clean, dry and intact. no discharge or blood seen. NVI - Neurological Exam Neurological exam: Alert, Oriented x3 - Psychiatric Exam Psychiatric exam: Normal Affect, Normal Mood Discharge Plan - Discharge Medications Prescriptions: Apixaban [Eliquis] 10 mg PO BID 7 Days tablet Apixaban [Eliquis] 5 mg PO BID 90 Days tab Piperacillin/Tazobact 3.375 gm [Zosyn 3.375 in NS 100ml] 3.375 gm IVPB Q8 21 Days #63 bag - Follow Up Plan Condition: STABLE Disposition: REHAB FACILITY/REHAB UNIT Instructions: Cellulitis (DC), Cellulitis (GEN), Diabetic Foot Ulcers (DC), Abscess (GEN) Additional Instructions: Follow up in [facility] with Dr. Mckinney 12/01/16, 8:40AM repeat left arm duplex CBC and CMP to be repeated in 1 week vanc trough in 1 day discharge to [facility] under care of Dr. Jhaveri pt leaving with PICC for additional 3 weeks IV antibiotics hold lovenox, start eliquis 11/09/16 Referrals: [facility] [place] [Outside]
== END 2016-11-08 17:15 | DRG 300 ==
LOC: H.ER 09:37 → H.ERHOLD 14:24 → H.TEL 18:16 → OBSVTOIN 11-04 08:16 → H.TEL 11-06 06:40 → H.MEDSURG1 11-07 14:15
PROVIDERS: ADMIT Family Medicine; ATTEND Family Medicine
PROC: 05PY33Z Removal of Infusion Device from Upper Vein, Percutaneous Approach (ICD-10-PCS; 2016-11-04)
PROC: 02HV33Z Insertion of Infusion Device into Superior Vena Cava, Percutaneous Approach (ICD-10-PCS; principal; 2016-11-08)
PROC: B518ZZA Fluoroscopy of Superior Vena Cava, Guidance (ICD-10-PCS; 2016-11-08)
PROC: 3E04329 Introduction of Other Anti-infective into Central Vein, Percutaneous Approach (ICD-10-PCS; 2016-11-08)
DX: I82.612 Acute embolism and thrombosis of superficial veins of left upper extremity (principal); L03.116 Cellulitis of left lower limb; L02.612 Cutaneous abscess of left foot; E11.610 Type 2 diabetes mellitus with diabetic neuropathic arthropathy; E11.51 Type 2 diabetes mellitus with diabetic peripheral angiopathy without gangrene; J98.11 Atelectasis; L97.529 Non-pressure chronic ulcer of other part of left foot with unspecified severity; E11.621 Type 2 diabetes mellitus with foot ulcer; D64.9 Anemia, unspecified; E78.5 Hyperlipidemia, unspecified; E87.6 Hypokalemia; I10 Essential (primary) hypertension; K21.9 Gastro-esophageal reflux disease without esophagitis; M19.072 Primary osteoarthritis, left ankle and foot; M19.071 Primary osteoarthritis, right ankle and foot; Z98.1 Arthrodesis status; Z86.14 Personal history of Methicillin resistant Staphylococcus aureus infection; K29.70 Gastritis, unspecified, without bleeding; H40.9 Unspecified glaucoma; R21 Rash and other nonspecific skin eruption; F41.9 Anxiety disorder, unspecified; Z86.73 Personal history of transient ischemic attack (TIA), and cerebral infarction without residual deficits; Z79.4 Long term (current) use of insulin; Z79.01 Long term (current) use of anticoagulants; Z79.84 Long term (current) use of oral hypoglycemic drugs; Z79.02 Long term (current) use of antithrombotics/antiplatelets; Z79.1 Long term (current) use of non-steroidal anti-inflammatories (NSAID); Z79.82 Long term (current) use of aspirin; Z87.891 Personal history of nicotine dependence; Z95.5 Presence of coronary angioplasty implant and graft; Z88.6 Allergy status to analgesic agent

== ENCOUNTER 2018-06-27 12:17 | Observation (INO) | payer OTHER, MEDICARE ==
[2018-06-27 12:17] VITALS: BMI 36.9
--- NOTE | 2018-06-27 13:13 | ED PDOC ---
HPI: SOB/CHF/COPD Time Seen by Provider: 06/27/18 12:41 Chief Complaint (Nursing): Shortness Of Breath History Per: Patient Additional Complaint(s): Pt. states last night he woke up from sleep with SOB, L sided chest pain, and palpitations. Pt. states symptoms occurred 3 more times but last episode has been constant. Further reports he applied "Biofreeze" onto the L side of his chest which immediately resolved the pain. Also reports having b/l lower extremity swelling which is normal for him and is currently improved from baseline. SOB is present only when lying flat. Denies hx of CHF, abdominal pain, N/V, abdominal swelling, fever, chills, hemoptysis, hx of DVT or PE. Past Medical History Reviewed: Historical Data, Nursing Documentation, Vital Signs Vital Signs: Last Vital Signs Temp 98.8 F 06/27/18 12:20 Pulse 71 06/27/18 12:20 Resp 17 06/27/18 12:20 BP 138/61 06/27/18 12:20 Pulse Ox 99 06/27/18 12:20 Primary Care Provider: Doctor,Conversion - Medical History PMH: Anxiety, CVA (2010), Depression, Diabetes (type II), Gastritis, GERD, HTN, Hypercholesterolemia, Peripheral Edema, Sleep Apnea (no c pap), TIA Denies: Hypothyroidism, Chronic Kidney Disease - Surgical History Surgical History: Appendectomy (05/30/10), Endoscopy - Family History Family History: States: No Known Family Hx - Home Medications Home Medications: Ambulatory Orders Medication Instructions Recorded Aspirin [Ecotrin] 81 mg PO DAILY 10/27/16 Atorvastatin [Lipitor] 80 mg PO HS 10/27/16 Brimonidine Tartrate/Timolol 1 drop EACHEYE BID 10/27/16 [Combigan 0.2%-0.5% Eye Drops] Clopidogrel [Plavix] 75 mg PO DAILY 10/27/16 Losartan [Cozaar] 50 mg PO HS 10/27/16 MetFORMIN [glucoPHAGE] 1,000 mg PO BID 10/27/16 hydroCHLOROthiazide [Microzide] 12.5 mg PO DAILY 10/27/16 Furosemide [Lasix] 20 mg PO QOTHERDAY #30 tab 10/31/16 Insulin Aspart [Novolog Flexpen] 10 - 20 units SC TID 03/19/18 Insulin Glargine,Hum.rec.anlog 50 - 80 unit SQ HS 04/30/17 [Toujeo Solostar] Bimatoprost [Lumigan] 1 drop EACHEYE HS 06/27/18 Cholecalciferol (Vitamin D3) 1 cap PO DAILY 06/27/18 [Vitamin D3] Fluticasone/Salmeterol 250/50 1 puff IH Q12 06/27/18 [Advair Diskus 250/50] Garlic 1 cap PO DAILY 06/27/18 Lidocaine 5% [Lidoderm] 1 patch TD HS 06/27/18 [place]-3 Fatty Acids/Fish Oil 1 cap PO DAILY 06/27/18 [[place]-3 1,000 mg Softgel] Ranitidine HCl [Zantac] 300 mg PO DAILY 06/27/18 Ubidecarenone [Coenzyme Q-10] 200 mg PO DAILY 06/27/18 Acetaminophen [Tylenol 325mg tab] 650 mg PO Q6 PRN tab 06/28/18 - Allergies Allergies/Adverse Reactions: Allergies Allergy/AdvReac Type Severity Reaction Status Date / Time Iodinated Contrast- Oral and Allergy Intermediate RASH Verified 05/03/17 08:08 IV Dye oxycodone HCl [From Percocet] Allergy Intermediate ITCHING Verified 01/21/16 20:08 cat scan oral contrast Allergy Intermediate RASH Uncoded 01/21/16 20:08 Review of Systems ROS Statement: Except As Marked, All Systems Reviewed And Found Negative Cardiovascular: Positive for: Chest Pain, Palpitations Respiratory: Positive for: Cough, Shortness of Breath. Negative for: Wheezing Physical Exam - Physical Exam Appears: Positive for: Well, Non-toxic, No Acute Distress Skin: Positive for: Normal Color, Warm. Negative for: Rash Eye Exam: Positive for: Normal appearance ENT: Positive for: Normal ENT Inspection Neck: Positive for: Normal, Painless ROM, Supple Cardiovascular/Chest: Positive for: Regular Rate, Rhythm. Negative for: Tachycardia Respiratory: Positive for: Normal Breath Sounds. Negative for: Accessory Muscle Use, Respiratory Distress Gastrointestinal/Abdominal: Positive for: Soft. Negative for: Tenderness, Distended Back: Positive for: Normal Inspection Extremity: Positive for: Other (b/l pitting edema). Negative for: Calf Tenderness Neurological/Psych: Positive for: Awake, Alert, Oriented (x3) - Laboratory Results Result Diagrams: 06/28/18 04:10 06/28/18 04:10 - ECG ECG: Positive for: Interpreted By Me ECG Rhythm: Positive for: Sinus Rhythm. Negative for: ST/T Changes O2 Sat by Pulse Oximetry: 99 - Radiology X-Ray: Interpreted by Me (CXR) X-Ray Interpretation: No Acute Disease - Progress ED Course And Treament: Labs, EKG ordered. Pt. placed on satellite project site monitor. Case d/w Dr. Gonsalez, hospitalist, and arrangements made for 23 hr observation. Disposition - Clinical Impression Clinical Impression: Chest pain - Patient ED Disposition Is Patient to be Admitted: Yes - Disposition Disposition Time: 17:05 Condition: FAIR - Pt Status Changed To: Hospital Disposition Of: Observation
[2018-06-27 13:33] LABS: SQUAMOUS EPITHIAL < 1 /hpf (0-5); URINE BILIRUBIN NEGATIVE (NEGATIVE); URINE BLOOD NEGATIVE (NEGATIVE); URINE CLARITY CLEAR (Clear); URINE COLOR STRAW (YELLOW); URINE GLUCOSE (UA) NEG (NEGATIVE); URINE LEUKOCYTE ESTERASE NEG Leu/uL (Negative); URINE PROTEIN 100 mg/dL (NEGATIVE); URINE UROBILINOGEN 0.2-1.0 mg/dL (0.2-1.0)
[2018-06-27 13:55] LABS: BASO # 0.1 K/uL (0.0-0.2); BASO % 0.5 % (0.0-2.0); EOS # 0.2 K/uL (0.0-0.7); EOS % 2.5 % (0.0-4.0); LYMPH # 1.5 K/uL (1.0-4.3); LYMPH % 15.8 % (20.0-40.0); MEAN CORPUSCULAR HEMOGLOBIN 27.8 pg (27.0-31.0); MEAN CORPUSCULAR HGB CONC 32.6 g/dL (33.0-37.0); MEAN PLATELET VOLUME 8.4 fl (7.2-11.7); MONO # 0.5 K/uL (0.0-0.8); MONO % 5.6 % (0.0-10.0); NEUT # 7.3 K/uL (1.8-7.0); NEUT % 75.6 % (50.0-75.0); NRBC % 0.1 % (0.0-0.0); RBC 4.32 Mil/uL (4.40-5.90); RED CELL DISTRIBUTION WIDTH 14.7 % (11.5-14.5); WHITE BLOOD COUNT 9.6 K/uL (4.8-10.8)
[2018-06-27 14:09] LABS: ALB/GLOB RATIO 1.3 (1.0-2.1); ALBUMIN 4.1 g/dL (3.5-5.0); ALT/SGPT 31 U/L (21-72); AST/SGOT 23 U/L (17-59); BLOOD UREA NITROGEN 26 mg/dl (9-20); CALCIUM 8.6 mg/dL (8.4-10.2); GFR NON-AFRICAN AMERICAN > 60
--- NOTE | 2018-06-27 14:56 | RAD ---
Date of service: 06/27/2018 HISTORY: Shortness of breath. COMPARISON: 11/07/2016 FINDINGS: LUNGS: No active pulmonary disease. PLEURA: No significant pleural effusion identified, no pneumothorax apparent. CARDIOVASCULAR: No atherosclerotic calcification present Cardiomegaly. No evidence of acute, significant cardiovascular disease. OSSEOUS STRUCTURES: No significant abnormalities. VISUALIZED UPPER ABDOMEN: Normal. OTHER FINDINGS: None. IMPRESSION: No active disease. No significant interval change compared to the prior examination(s).
--- NOTE | 2018-06-27 17:39 | US ---
Date of service: 06/27/2018 PROCEDURE: Bilateral lower extremity venous duplex Doppler. HISTORY: lower extremity swelling COMPARISON: None available. TECHNIQUE: Bilateral common femoral, superficial femoral, popliteal and posterior tibial veins were evaluated. Flow was assessed with color Doppler, compressibility, assessment of phasic flow and augmentation response. FINDINGS: COMMON FEMORAL VEIN: Right CFV: Unremarkable. Left CFV: Unremarkable. SUPERFICIAL FEMORAL VEIN: Right SFV: Unremarkable. Left SFV: Unremarkable. POPLITEAL VEIN: Right Popliteal: Unremarkable. Left Popliteal: Unremarkable. POSTERIOR TIBIAL VEIN: Right PTV: Unremarkable. Left PTV: Unremarkable. OTHER FINDINGS: None. IMPRESSION: No evidence of deep venous thrombosis.
[2018-06-27] MEDS ORDERED: Glucagon Recombinant 1 mg Inj IM PRN (19:18)
[2018-06-27] MEDS ORDERED: Dextrose 50% SYRINGE Inj (50 ml) IV PRN (19:18)
--- NOTE | 2018-06-27 19:18 | CP.PCM.HP ---
<Magy Johnson - Last Filed: 06/27/18 22:36> History of Present Illness - History of Present Illness History of Present Illness: CC: dyspnea and chest tightness HPI: 67 YO Male with PMHx of DM, HTN, HLD, CAD (stent 4 yrs ago), CVA (2 yrs ago) presented to the ER with dyspnea, palpations and chest tightness. Patient states that his symptoms started suddenly early this morning and persisted thr oughout the morning. He has had similar episodes in the past, he describes them as "panic attacks" but this episode was different and reminded him of when he had his stroke. The episode started with dyspnea and then he started having chest tightness follow up palpitations and when those symptoms started getting better he started feeling very weak, dizzy and endorses having slurry speech that lasted a few minutes (whole episode lasted approx 3 hrs). Currently, he feels better, chest pain/tightness, dyspnea and palpations have all currently resolved. of note, uses a wheelchair. by bedside PMHx: DM, HTN, HLD, CAD (stent 4 yrs ago) PVD, CVA x 2 (last one 2 yrs ago) PSHx: Left foot Sx 08/2014; Left foot screw removal 04/02/15. SHx: No tobacco (quit 35 years ago), no EtOH or recreational drugs. Allergies: Oral contrast and Percocet--rash and hives Present on Admission - Present on Admission Any Indicators Present on Admission: No Review of Systems - Constitutional Constitutional: absent: Chills, Fever - EENT Eyes: absent: Blurred Vision - Cardiovascular Cardiovascular: Chest Pain, Dyspnea - Respiratory Respiratory: Dyspnea. absent: Cough - Gastrointestinal Gastrointestinal: absent: Abdominal Pain - Neurological Neurological: Dizziness. absent: Numbness, Focal Weakness, Syncope Past Patient History - Infectious Disease Hx of Infectious Diseases: MRSA - Past Medical History & Family History Past Medical History?: Yes - Past Social History Smoking Status: Never Smoked Alcohol: None Drugs: Denies - CARDIAC Hx Cardiac Disorders: Yes - PULMONARY Hx Sleep Apnea: Yes (no c pap) - NEUROLOGICAL Hx Neurological Disorder: Yes - HEENT Hx HEENT Problems: Yes - RENAL Hx Chronic Kidney Disease: No - ENDOCRINE/METABOLIC Hx Endocrine Disorders: Yes - INTEGUMENTARY Hx Dermatological Problems: Yes Hx Cellulitis: (left foot treated) Other/Comment: left foot small ulcer betweem 4 and 5th toes - GASTROINTESTINAL Hx Gastritis: Yes - GENITOURINARY/GYNECOLOGICAL Hx Genitourinary Disorders: No - PSYCHIATRIC Hx Psychophysiologic Disorder: Yes - SURGICAL HISTORY Hx Appendectomy: Yes (05/30/10) - ANESTHESIA Hx Anesthesia: Yes Hx Anesthesia Reactions: No Hx Malignant Hyperthermia: No Meds Allergies/Adverse Reactions: Allergies Allergy/AdvReac Type Severity Reaction Status Date / Time Iodinated Contrast- Oral and Allergy Intermediate RASH Verified 05/03/17 08:08 IV Dye oxycodone HCl [From Percocet] Allergy Intermediate ITCHING Verified 01/21/16 20:08 cat scan oral contrast Allergy Intermediate RASH Uncoded 01/21/16 20:08 Physical Exam - Constitutional Appears: No Acute Distress, Other (normal speech) - Head Exam Head Exam: ATRAUMATIC - Eye Exam Eye Exam: Normal appearance - ENT Exam ENT Exam: Mucous Membranes Moist - Respiratory Exam Respiratory Exam: Clear to Auscultation Bilateral, NORMAL BREATHING PATTERN. absent: Wheezes - Cardiovascular Exam Cardiovascular Exam: REGULAR RHYTHM, +S1, +S2. absent: Systolic Murmur - GI/Abdominal Exam GI & Abdominal Exam: Normal Bowel Sounds, Soft. absent: Tenderness - Extremities Exam Extremities exam: Positive for: normal inspection Additional comments: Baseline R sided weakness. Skin break noted on R heel - Neurological Exam Neurological exam: Alert, Oriented x3 Results - Vital Signs Recent Vital Signs: Last Vital Signs Temp 98 F 06/27/18 18:50 Pulse 73 06/27/18 18:50 Resp 17 06/27/18 18:50 BP 138/83 06/27/18 18:50 Pulse Ox 99 06/27/18 18:12 - Labs Result Diagrams: 06/27/18 13:50 06/27/18 13:50 Labs: Laboratory Results - last 24 hr 06/27/18 06/27/18 06/27/18 13:06 13:25 13:50 WBC RBC Hgb Hct MCV MCH MCHC RDW Plt Count MPV Neut % (Auto) Lymph % (Auto) [place] % (Auto) Eos % (Auto) Baso % (Auto) Neut # (Auto) Lymph # (Auto) [place] # (Auto) Eos # (Auto) Baso # (Auto) Sodium 137 Potassium 4.2 Chloride 103 Carbon Dioxide 26 Anion Gap 12 BUN 26 H Creatinine 1.1 Est GFR ( Amer) > 60 Est GFR (Non-Af Amer) > 60 POC Glucose (mg/dL) 125 H Random Glucose 115 H Calcium 8.6 Total Bilirubin 0.5 AST 23 ALT 31 Alkaline Phosphatase 130 H Troponin I < 0.0120 NT-Pro-B Natriuret Pep 60.0 Total Protein 7.4 Albumin 4.1 Globulin 3.3 Albumin/Globulin Ratio 1.3 TSH 3rd Generation 1.49 Urine Color Straw Urine Clarity Clear Urine pH 6.0 Ur Specific [place] 1.009 Urine Protein 100 Urine Glucose (UA) Neg Urine Ketones Negative Urine Blood Negative Urine Nitrate Negative Urine Bilirubin Negative Urine Urobilinogen 0.2-1.0 Ur Leukocyte Esterase Neg Urine RBC (Auto) 1 Urine Microscopic WBC < 1 Ur Squamous Epith Cells < 1 06/27/18 13:50 WBC 9.6 RBC 4.32 L Hgb 12.0 Hct 36.7 MCV 85.0 MCH 27.8 MCHC 32.6 L RDW 14.7 H Plt Count 238 MPV 8.4 Neut % (Auto) 75.6 H Lymph % (Auto) 15.8 L [place] % (Auto) 5.6 Eos % (Auto) 2.5 Baso % (Auto) 0.5 Neut # (Auto) 7.3 H Lymph # (Auto) 1.5 [place] # (Auto) 0.5 Eos # (Auto) 0.2 Baso # (Auto) 0.1 Sodium Potassium Chloride Carbon Dioxide Anion Gap BUN Creatinine Est GFR ( Amer) Est GFR (Non-Af Amer) POC Glucose (mg/dL) Random Glucose Calcium Total Bilirubin AST ALT Alkaline Phosphatase Troponin I NT-Pro-B Natriuret Pep Total Protein Albumin Globulin Albumin/Globulin Ratio TSH 3rd Generation Urine Color Urine Clarity Urine pH Ur Specific [place] Urine Protein Urine Glucose (UA) Urine Ketones Urine Blood Urine Nitrate Urine Bilirubin Urine Urobilinogen Ur Leukocyte Esterase Urine RBC (Auto) Urine Microscopic WBC Ur Squamous Epith Cells - EKG Data EKG Interpreted by: Myself EKG shows normal: Sinus rhythm Rate: Normal (NSR with a rate of 73, no acute ST or T wave changes noted ) Assessment & Plan - Assessment and Plan (Free Text) Assessment: Assessment/Plan: 67 YO Male with PMHx of DM, HTN, HLD, CAD (stent 4 yrs ago), CVA (2 yrs ago) is admitted for chest pain, r/o ACS. Chest pain -r/o ACS -Trops x 2 neg -EKG no acute ST or T wave changes noted -CXR neg -follow up AM trop and EKG Dizziness/weakness -questionable dysphasia -CT head no acute findings -likely 2/2 to anxiety/chronic conditions -consider PT/OT as needed for strengthening -neurochecks HTN/CAD/PVD -c/w home meds -start Betablocker -cont to monitor IDDM -chronic, controlled -HbA1c 7.3 (04/2018) -c.w insulin, metformin -sliding scale, med -hypoglycemia protocol DVT prolx -Lovenox SC <Beverly Gonsalez - Last Filed: 06/28/18 18:51> Results - Vital Signs Recent Vital Signs: Last Vital Signs Temp 98.2 F 06/28/18 11:41 Pulse 69 06/28/18 11:41 Resp 18 06/28/18 11:41 BP 120/72 06/28/18 11:41 Pulse Ox 96 06/28/18 11:41 - Labs Result Diagrams: 06/28/18 04:10 06/28/18 04:10 Labs: Laboratory Results - last 24 hr 06/27/18 06/27/18 06/28/18 20:48 22:00 04:10 WBC 7.4 RBC 4.07 L Hgb 11.5 L Hct 34.8 L MCV 85.4 MCH 28.2 MCHC 33.0 RDW 14.7 H Plt Count 213 MPV 8.6 Neut % (Auto) 69.1 Lymph % (Auto) 19.3 L [place] % (Auto) 7.2 Eos % (Auto) 3.8 Baso % (Auto) 0.6 Neut # (Auto) 5.1 Lymph # (Auto) 1.4 [place] # (Auto) 0.5 Eos # (Auto) 0.3 Baso # (Auto) 0.0 Sodium Potassium Chloride Carbon Dioxide Anion Gap BUN Creatinine Est GFR ( Amer) Est GFR (Non-Af Amer) POC Glucose (mg/dL) 144 H Random Glucose Hemoglobin A1c Calcium Total Bilirubin AST ALT Alkaline Phosphatase Troponin I < 0.0120 Total Protein Albumin Globulin Albumin/Globulin Ratio Triglycerides Cholesterol LDL Cholesterol Direct HDL Cholesterol 06/28/18 06/28/18 06/28/18 04:10 04:10 05:25 WBC RBC Hgb Hct MCV MCH MCHC RDW Plt Count MPV Neut % (Auto) Lymph % (Auto) [place] % (Auto) Eos % (Auto) Baso % (Auto) Neut # (Auto) Lymph # (Auto) [place] # (Auto) Eos # (Auto) Baso # (Auto) Sodium 140 Potassium 4.0 Chloride 106 Carbon Dioxide 24 Anion Gap 14 BUN 24 H Creatinine 1.1 Est GFR ( Amer) > 60 Est GFR (Non-Af Amer) > 60 POC Glucose (mg/dL) 95 Random Glucose 100 Hemoglobin A1c 7.6 H Calcium 8.5 Total Bilirubin 0.5 AST 20 ALT 29 Alkaline Phosphatase 102 Troponin I < 0.0120 Total Protein 6.7 Albumin 3.7 Globulin 3.0 Albumin/Globulin Ratio 1.2 Triglycerides 123 Cholesterol 87 LDL Cholesterol Direct 45 HDL Cholesterol 20 L 06/28/18 10:18 WBC RBC Hgb Hct MCV MCH MCHC RDW Plt Count MPV Neut % (Auto) Lymph % (Auto) [place] % (Auto) Eos % (Auto) Baso % (Auto) Neut # (Auto) Lymph # (Auto) [place] # (Auto) Eos # (Auto) Baso # (Auto) Sodium Potassium Chloride Carbon Dioxide Anion Gap BUN Creatinine Est GFR ( Amer) Est GFR (Non-Af Amer) POC Glucose (mg/dL) 160 H Random Glucose Hemoglobin A1c Calcium Total Bilirubin AST ALT Alkaline Phosphatase Troponin I Total Protein Albumin Globulin Albumin/Globulin Ratio Triglycerides Cholesterol LDL Cholesterol Direct HDL Cholesterol Attending/Attestation - Attestation I have personally seen and examined this patient.: Yes I have fully participated in the care of the patient.: Yes I have reviewed all pertinent clinical information: Yes Notes (Text): Agree with findings and plan as above.
[2018-06-27] MEDS ORDERED: FLUTICASONE PROPION/SALMETEROL 232-14 INHALER INH SCH (21:00)
[2018-06-27] MEDS: Brimonidine 0.2% 50 DROP/5 ML BOTTLE OU SCH (21:54)
[2018-06-27] MEDS ORDERED: Insulin Detemir 100 Units/ml Inj SC SCH (22:00)
[2018-06-27] MEDS ORDERED: Lidocaine 5% Patch TD SCH (22:00)
[2018-06-27] MEDS ORDERED: Latanoprost 0.005% Opht SOUTION OU SCH (22:00)
[2018-06-27] MEDS: Insulin Lispro (humaLOG) 100 Units/ml Inj SC SCH (22:02)
[2018-06-28 05:06] LABS: ALB/GLOB RATIO 1.2 (1.0-2.1); ALBUMIN 3.7 g/dL (3.5-5.0); ALT/SGPT 29 U/L (21-72); AST/SGOT 20 U/L (17-59); BLOOD UREA NITROGEN 24 mg/dl (9-20); CALCIUM 8.5 mg/dL (8.4-10.2); GFR NON-AFRICAN AMERICAN > 60; HDL CHOLESTEROL 20 MG/DL (30-70)
[2018-06-28 05:14] LABS: LDL CHOLESTEROL 45 mg/dL (0-129)
[2018-06-28 06:20] LABS: BASO % 0.6 % (0.0-2.0); EOS # 0.3 K/uL (0.0-0.7); EOS % 3.8 % (0.0-4.0); HEMOGLOBIN 11.5 g/dL (12.0-18.0); LYMPH # 1.4 K/uL (1.0-4.3); LYMPH % 19.3 % (20.0-40.0); MEAN CELL VOLUME 85.4 fl (80.0-94.0); MEAN CORPUSCULAR HEMOGLOBIN 28.2 pg (27.0-31.0); MEAN PLATELET VOLUME 8.6 fl (7.2-11.7); MONO # 0.5 K/uL (0.0-0.8); MONO % 7.2 % (0.0-10.0); NEUT # 5.1 K/uL (1.8-7.0); NEUT % 69.1 % (50.0-75.0); RBC 4.07 Mil/uL (4.40-5.90); RED CELL DISTRIBUTION WIDTH 14.7 % (11.5-14.5); WHITE BLOOD COUNT 7.4 K/uL (4.8-10.8)
[2018-06-28] MEDS: Insulin Lispro (humaLOG) 100 Units/ml Inj SC SCH ×6 (06:33→16:46)
--- NOTE | 2018-06-28 07:11 | CT ---
Date of service: 06/27/2018 PROCEDURE: CT HEAD WITHOUT CONTRAST. HISTORY: wekaness, dizziness with dysphagia COMPARISON: Comparison is made with 01/16/2016 TECHNIQUE: Axial computed tomography images were obtained through the head/brain without intravenous contrast. Radiation dose: Total exam DLP = 864.5 mGy-cm. This CT exam was performed using one or more of the following dose reduction techniques: Automated exposure control, adjustment of the mA and/or kV according to patient size, and/or use of iterative reconstruction technique. FINDINGS: HEMORRHAGE: No intracranial hemorrhage. BRAIN: No mass effect or edema. No atrophy or chronic microvascular ischemic changes. VENTRICLES: Unremarkable. No hydrocephalus. CALVARIUM: Unremarkable. PARANASAL SINUSES: Again noted is mucosal retention cyst in the left maxillary sinus measures 3.7 centimeter in the transverse diameter and 2.4 centimeter in the AP diameter. MASTOID AIR CELLS: Unremarkable as visualized. No inflammatory changes. OTHER FINDINGS: None. IMPRESSION: No evidence of acute intracranial hemorrhage territorial infarction mass effect or midline shift. No significant interval changes. Preliminary report was submitted by [facility] Radiology contains concordant findings.
[2018-06-28 07:46] VITALS: RESP 18
[2018-06-28] MEDS ORDERED: Patient's Own Med (Brimonidine Tartrate/Timolol [Combigan 0.2%-0.5% Eye Drops] 1 DROP) EACHEYE SCH (09:00)
[2018-06-28] MEDS ORDERED: Enoxaparin 40 mg Syringe SC SCH (09:00)
[2018-06-28] MEDS ORDERED: FLUTICASONE PROPION/SALMETEROL 113-14 INH SCH (09:00)
[2018-06-28] MEDS ORDERED: Cholecalciferol 1,000 INTLU TAB PO SCH (09:00)
[2018-06-28] MEDS: Brimonidine 0.2% 50 DROP/5 ML BOTTLE OU SCH ×2 (09:05→16:45)
--- NOTE | 2018-06-28 10:48 | CARD ---
APPROVED REPORT Date of service: 06/28/2018 EKG Measurement Heart [id number] <Conclusion> Normal sinus rhythm Minimal voltage criteria for LVH, may be normal variant Borderline ECG
--- NOTE | 2018-06-28 10:57 | CARD ---
APPROVED REPORT Date of service: 06/27/2018 EKG Measurement Heart [id number] <Conclusion> Normal sinus rhythm with sinus arrhythmia Minimal voltage criteria for LVH, may be normal variant Borderline ECG
[2018-06-28 11:41] VITALS: BP 120/72; PULSE 69; TEMP 98.2
--- NOTE | 2018-06-28 12:34 | CP.PCM.DIS ---
<Roberto Donis - Last Filed: 06/28/18 12:35> Provider - Provider Date of Admission: 06/27/18 17:17 Attending physician: Beverly Gonsalez DO Consults: 06/27/18 19:22 Wound Care [Nursing Referral for Wound Care] Routine Comment: Physician Instructions: Reason For Exam: R heel skin break 06/27/18 23:45 Case Management Referral Routine Comment: Physician Instructions: Reason For Exam: Reason for Referral: [facility]NA Eval Social Work Referral Routine Comment: Pt requests homemaker Physician Instructions: Reason For Exam: Pt requests homemaker Time Spent in preparation of Discharge (in minutes): 20 Diagnosis - Discharge Diagnosis (1) Chest pain Status: Acute Hospital Course - Lab Results Lab Results: Most Recent Lab Values WBC 7.4 K/uL (4.8-10.8) 06/28/18 04:10 RBC 4.07 Mil/uL (4.40-5.90) L 06/28/18 04:10 Hgb 11.5 g/dL (12.0-18.0) L 06/28/18 04:10 Hct 34.8 % (35.0-51.0) L 06/28/18 04:10 MCV 85.4 fl (80.0-94.0) 06/28/18 04:10 MCH 28.2 pg (27.0-31.0) 06/28/18 04:10 MCHC 33.0 g/dL (33.0-37.0) 06/28/18 04:10 RDW 14.7 % (11.5-14.5) H 06/28/18 04:10 Plt Count 213 K/uL (130-400) 06/28/18 04:10 MPV 8.6 fl (7.2-11.7) 06/28/18 04:10 Neut % (Auto) 69.1 % (50.0-75.0) 06/28/18 04:10 Lymph % (Auto) 19.3 % (20.0-40.0) L 06/28/18 04:10 [place] % (Auto) 7.2 % (0.0-10.0) 06/28/18 04:10 Eos % (Auto) 3.8 % (0.0-4.0) 06/28/18 04:10 Baso % (Auto) 0.6 % (0.0-2.0) 06/28/18 04:10 Neut # (Auto) 5.1 K/uL (1.8-7.0) 06/28/18 04:10 Lymph # (Auto) 1.4 K/uL (1.0-4.3) 06/28/18 04:10 [place] # (Auto) 0.5 K/uL (0.0-0.8) 06/28/18 04:10 Eos # (Auto) 0.3 K/uL (0.0-0.7) 06/28/18 04:10 Baso # (Auto) 0.0 K/uL (0.0-0.2) 06/28/18 04:10 Sodium 140 mmol/l (132-148) 06/28/18 04:10 Potassium 4.0 MMOL/L (3.6-5.0) 06/28/18 04:10 Chloride 106 mmol/L (98-107) 06/28/18 04:10 Carbon Dioxide 24 mmol/L (22-30) 06/28/18 04:10 Anion Gap 14 (10-20) 06/28/18 04:10 BUN 24 mg/dl (9-20) H 06/28/18 04:10 Creatinine 1.1 mg/dl (0.8-1.5) 06/28/18 04:10 Est GFR ( Amer) > 60 06/28/18 04:10 Est GFR (Non-Af Amer) > 60 06/28/18 04:10 POC Glucose (mg/dL) 160 mg/dL (65-110) H 06/28/18 10:18 Random Glucose 100 mg/dL (75-110) 06/28/18 04:10 Hemoglobin A1c 7.6 % (4.2-6.5) H 06/28/18 04:10 Calcium 8.5 mg/dL (8.4-10.2) 06/28/18 04:10 Total Bilirubin 0.5 mg/dl (0.2-1.3) 06/28/18 04:10 AST 20 U/L (17-59) 06/28/18 04:10 ALT 29 U/L (21-72) 06/28/18 04:10 Alkaline Phosphatase 102 U/L (38-126) 06/28/18 04:10 Troponin I < 0.0120 ng/mL (0.00-0.120) 06/28/18 04:10 NT-Pro-B Natriuret Pep 60.0 pg/ml (0-900) 06/27/18 13:50 Total Protein 6.7 G/DL (6.3-8.2) 06/28/18 04:10 Albumin 3.7 g/dL (3.5-5.0) 06/28/18 04:10 Globulin 3.0 gm/dL (2.2-3.9) 06/28/18 04:10 Albumin/Globulin Ratio 1.2 (1.0-2.1) 06/28/18 04:10 Triglycerides 123 mg/DL (0-149) 06/28/18 04:10 Cholesterol 87 mg/dL (0-199) 06/28/18 04:10 LDL Cholesterol Direct 45 mg/dL (0-129) 06/28/18 04:10 HDL Cholesterol 20 MG/DL (30-70) L 06/28/18 04:10 TSH 3rd Generation 1.49 mIU/ML (0.46-4.68) 06/27/18 13:50 Urine Color Straw (YELLOW) 06/27/18 13:25 Urine Clarity Clear (Clear) 06/27/18 13:25 Urine pH 6.0 (5.0-8.0) 06/27/18 13:25 Ur Specific [place] 1.009 (1.003-1.030) 06/27/18 13:25 Urine Protein 100 mg/dL (NEGATIVE) 06/27/18 13:25 Urine Glucose (UA) Neg mg/dL (NEGATIVE) 06/27/18 13:25 Urine Ketones Negative mg/dL (NEGATIVE) 06/27/18 13:25 Urine Blood Negative (NEGATIVE) 06/27/18 13:25 Urine Nitrate Negative (NEGATIVE) 06/27/18 13:25 Urine Bilirubin Negative (NEGATIVE) 06/27/18 13:25 Urine Urobilinogen 0.2-1.0 mg/dL (0.2-1.0) 06/27/18 13:25 Ur Leukocyte Esterase Neg Jemima/uL (Negative) 06/27/18 13:25 Urine RBC (Auto) 1 /hpf (0-3) 06/27/18 13:25 Urine Microscopic WBC < 1 /hpf (0-5) 06/27/18 13:25 Ur Squamous Epith Cells < 1 /hpf (0-5) 06/27/18 13:25 - Hospital Course Hospital Course: 67 yo male with PMHx of DM, HTN, HLD, CAD (stent 4 yrs ago), CVA (2 yrs ago) presented to the ER with dyspnea, palpations and chest tightness, weakness and dizziness. Admitted to evaluate for ACS. -Trops x 2 neg -EKG no acute ST or T wave changes noted x2 -CXR neg Evaluate for dizziness/weakness, Possible due to Anxiety -CT head no acute findings Patient seen and examined at bedside. No acute event overnight. Patient had no complains, he denies any weakness, and report that he is ready to go home and follow up with PCP. patient have no other complains. Patient chart reviewed, Patient is stable to be discharged home and follow up with PCP HTN/CAD/PVD -c/w home meds -start Betablocker -cont to monitor IDDM -chronic, controlled -HbA1c 7.3 (04/2018) -c.w insulin, metformin -sliding scale, med -hypoglycemia protocol DVT prolx -Lovenox SC Discharge Exam - Head Exam Head Exam: ATRAUMATIC, NORMAL INSPECTION, NORMOCEPHALIC - Eye Exam Eye Exam: EOMI, Normal appearance, PERRL Pupil Exam: NORMAL ACCOMODATION, PERRL - Respiratory Exam Respiratory Exam: Clear to PA & Lateral, NORMAL BREATHING PATTERN, UNREMARKABLE - Cardiovascular Exam Cardiovascular Exam: REGULAR RHYTHM, +S1, +S2 - GI/Abdominal Exam GI & Abdominal Exam: Normal Bowel Sounds, Unremarkable - Extremities Exam Additional comments: weakness in legs ( chronic patient is on wheelchair) - Neurological Exam Neurological exam: Alert, Oriented x3 - Psychiatric Exam Psychiatric exam: Normal Affect, Normal Mood - Skin Skin Exam: Dry, Intact, Normal Color, Warm Discharge Plan - Follow Up Plan Condition: STABLE Disposition: HOME/ ROUTINE Instructions: Chest Pain (DC) Additional Instructions: follow up with primary MD in 1 week Referrals: [facility] [Outside] <Beverly Gonsalez - Last Filed: 06/28/18 18:47> Provider - Provider Date of Admission: 06/27/18 17:17 Attending physician: Beverly Gonsalez DO Consults: 06/27/18 19:22 Wound Care [Nursing Referral for Wound Care] Routine Comment: Physician Instructions: Reason For Exam: R heel skin break 06/27/18 23:45 Case Management Referral Routine Comment: Physician Instructions: Reason For Exam: Reason for Referral: VNA Eval Social Work Referral Routine Comment: Pt requests homemaker Physician Instructions: Reason For Exam: Pt requests homenyker Hospital Course - Lab Results Lab Results: Most Recent Lab Values WBC 7.4 K/uL (4.8-10.8) 06/28/18 04:10 RBC 4.07 Mil/uL (4.40-5.90) L 06/28/18 04:10 Hgb 11.5 g/dL (12.0-18.0) L 06/28/18 04:10 Hct 34.8 % (35.0-51.0) L 06/28/18 04:10 MCV 85.4 fl (80.0-94.0) 06/28/18 04:10 MCH 28.2 pg (27.0-31.0) 06/28/18 04:10 MCHC 33.0 g/dL (33.0-37.0) 06/28/18 04:10 RDW 14.7 % (11.5-14.5) H 06/28/18 04:10 Plt Count 213 K/uL (130-400) 06/28/18 04:10 MPV 8.6 fl (7.2-11.7) 06/28/18 04:10 Neut % (Auto) 69.1 % (50.0-75.0) 06/28/18 04:10 Lymph % (Auto) 19.3 % (20.0-40.0) L 06/28/18 04:10 [place] % (Auto) 7.2 % (0.0-10.0) 06/28/18 04:10 Eos % (Auto) 3.8 % (0.0-4.0) 06/28/18 04:10 Baso % (Auto) 0.6 % (0.0-2.0) 06/28/18 04:10 Neut # (Auto) 5.1 K/uL (1.8-7.0) 06/28/18 04:10 Lymph # (Auto) 1.4 K/uL (1.0-4.3) 06/28/18 04:10 [place] # (Auto) 0.5 K/uL (0.0-0.8) 06/28/18 04:10 Eos # (Auto) 0.3 K/uL (0.0-0.7) 06/28/18 04:10 Baso # (Auto) 0.0 K/uL (0.0-0.2) 06/28/18 04:10 Sodium 140 mmol/l (132-148) 06/28/18 04:10 Potassium 4.0 MMOL/L (3.6-5.0) 06/28/18 04:10 Chloride 106 mmol/L (98-107) 06/28/18 04:10 Carbon Dioxide 24 mmol/L (22-30) 06/28/18 04:10 Anion Gap 14 (10-20) 06/28/18 04:10 BUN 24 mg/dl (9-20) H 06/28/18 04:10 Creatinine 1.1 mg/dl (0.8-1.5) 06/28/18 04:10 Est GFR ( Amer) > 60 06/28/18 04:10 Est GFR (Non-Af Amer) > 60 06/28/18 04:10 POC Glucose (mg/dL) 160 mg/dL (65-110) H 06/28/18 10:18 Random Glucose 100 mg/dL (75-110) 06/28/18 04:10 Hemoglobin A1c 7.6 % (4.2-6.5) H 06/28/18 04:10 Calcium 8.5 mg/dL (8.4-10.2) 06/28/18 04:10 Total Bilirubin 0.5 mg/dl (0.2-1.3) 06/28/18 04:10 AST 20 U/L (17-59) 06/28/18 04:10 ALT 29 U/L (21-72) 06/28/18 04:10 Alkaline Phosphatase 102 U/L (38-126) 06/28/18 04:10 Troponin I < 0.0120 ng/mL (0.00-0.120) 06/28/18 04:10 NT-Pro-B Natriuret Pep 60.0 pg/ml (0-900) 06/27/18 13:50 Total Protein 6.7 G/DL (6.3-8.2) 06/28/18 04:10 Albumin 3.7 g/dL (3.5-5.0) 06/28/18 04:10 Globulin 3.0 gm/dL (2.2-3.9) 06/28/18 04:10 Albumin/Globulin Ratio 1.2 (1.0-2.1) 06/28/18 04:10 Triglycerides 123 mg/DL (0-149) 06/28/18 04:10 Cholesterol 87 mg/dL (0-199) 06/28/18 04:10 LDL Cholesterol Direct 45 mg/dL (0-129) 06/28/18 04:10 HDL Cholesterol 20 MG/DL (30-70) L 06/28/18 04:10 TSH 3rd Generation 1.49 mIU/ML (0.46-4.68) 06/27/18 13:50 Urine Color Straw (YELLOW) 06/27/18 13:25 Urine Clarity Clear (Clear) 06/27/18 13:25 Urine pH 6.0 (5.0-8.0) 06/27/18 13:25 Ur Specific [place] 1.009 (1.003-1.030) 06/27/18 13:25 Urine Protein 100 mg/dL (NEGATIVE) 06/27/18 13:25 Urine Glucose (UA) Neg mg/dL (NEGATIVE) 06/27/18 13:25 Urine Ketones Negative mg/dL (NEGATIVE) 06/27/18 13:25 Urine Blood Negative (NEGATIVE) 06/27/18 13:25 Urine Nitrate Negative (NEGATIVE) 06/27/18 13:25 Urine Bilirubin Negative (NEGATIVE) 06/27/18 13:25 Urine Urobilinogen 0.2-1.0 mg/dL (0.2-1.0) 06/27/18 13:25 Ur Leukocyte Esterase Neg Jemima/uL (Negative) 06/27/18 13:25 Urine RBC (Auto) 1 /hpf (0-3) 06/27/18 13:25 Urine Microscopic WBC < 1 /hpf (0-5) 06/27/18 13:25 Ur Squamous Epith Cells < 1 /hpf (0-5) 06/27/18 13:25 Attending/Attestation - Attestation I have personally seen and examined this patient.: Yes I have fully participated in the care of the patient.: Yes I have reviewed all pertinent clinical information, including history, physical exam and plan: Yes Notes (Text): Agree with findings and plan as above.
[2018-06-30 00:17] VITALS: O2SAT 99
== END 2018-06-28 17:05 | disposition home or self-care (01) ==
LOC: H.ER 12:17 → H.ERHOLD 17:17 → H.TEL 18:55
PROVIDERS: ADMIT Student in an Organized Health Care Education/Training Program; ATTEND Student in an Organized Health Care Education/Training Program
DX: R07.9 Chest pain, unspecified (principal); F41.0 Panic disorder [episodic paroxysmal anxiety]; I25.10 Atherosclerotic heart disease of native coronary artery without angina pectoris; K21.9 Gastro-esophageal reflux disease without esophagitis; R53.1 Weakness; R42 Dizziness and giddiness; I10 Essential (primary) hypertension; E11.8 Type 2 diabetes mellitus with unspecified complications; E78.5 Hyperlipidemia, unspecified; K29.70 Gastritis, unspecified, without bleeding; G47.30 Sleep apnea, unspecified; Z86.14 Personal history of Methicillin resistant Staphylococcus aureus infection; Z86.73 Personal history of transient ischemic attack (TIA), and cerebral infarction without residual deficits; Z79.4 Long term (current) use of insulin; Z79.02 Long term (current) use of antithrombotics/antiplatelets; Z79.82 Long term (current) use of aspirin; Z79.84 Long term (current) use of oral hypoglycemic drugs
CPT/HCPCS: 36415; 70450; 71045; 80053; 80061; 81003; 82948; 83036; 83880; 84443; 84484; 85025; 93005; 93970; 94660; 99285; G0378; J1650